=== PATIENT | male | born 1940 | race Caucasian/White ===

== ENCOUNTER 2019-07-25 09:59 | Inpatient (IN) ==
[2019-06-26 13:13] LABS: Basophils # (auto) 0.04 K/uL (0-0.2); Basophils % (auto) 0.6 %; Eosinophils # (auto) 0.18 K/uL (0-0.5); Eosinophils % (auto) 2.8 %; Hematocrit (blood only) 42.3 % (42-52); Hemoglobin 14.7 g/dL (14.0-18.0); Immature Granulocytes # (auto) 0.01 K/uL (0.00-0.02); Immature Granulocytes % (auto) 0.2 %; Lymphocytes % (auto) 26.4 %; Mean Corpuscular Hemoglobin 32.6 pg (25-34); Mean Corpuscular Hgb Conc 34.8 g/dL (32-36); Mean Corpuscular Volume 93.8 fL (80-100); Mean Platelet Volume 10.5 fL (7.4-10.4); Monocytes # (auto) 0.84 K/uL (0.11-0.59); Neutrophils # (auto) 3.67 K/uL (1.4-6.5); Platelet Count 170 K/uL (130-400); RDW Standard Deviation 44.4 fL (36.4-46.3); Red Blood Count 4.51 M/uL (4.7-6.1); White Blood Count 6.44 K/uL (4.8-10.8)
--- NOTE | 2019-06-26 13:18 | XRay Report ---
XR chest Pre-admission PA/Lat HISTORY: 79 years-old Male pat preoperative exam. COMPARISON: None available TECHNIQUE: PA and lateral views of the chest FINDINGS: Cardiomediastinal and hilar silhouettes are within normal limits. Aside plaque the thoracic aortic ar ch. No pneumothorax, pleural effusion or overt pulmonary edema. Eventration of the right hemidiaphrag m. Remote healed bilateral rib fractures. IMPRESSION: No acute process. The above report was generated using voice recognition software. It may contain grammatical, syntax o r spelling errors. Electronically signed by: Dagoberto Barron M.D. 06/26/2019 1:16 PM
[2019-06-26 13:19] LABS: BUN Creatinine Ratio 15.7 (10-20); Blood Urea Nitrogen 20 mg/dl (7-18); Calcium 8.9 mg/dl (8.5-10.1); Carbon Dioxide 25 mmol/L (21-32); Chloride 107 mmol/L (98-107); Creatinine Clr Calc Pharmacy 60.5 ml/min; Est GFR (African American) 62.9; Est GFR (Non-African American) 54.3; Glucose 117 mg/dl (70-99); Potassium 4.3 mmol/L (3.5-5.1); Sodium 139 mmol/L (136-145)
[2019-06-26 13:20] LABS: Estimated Average Glucose 151 mg/dl; Hemoglobin A1C 6.9 % (4.5-5.6)
[2019-06-26 13:22] LABS: C Reactive Protein < 0.29 mg/dl (0-0.29)
[2019-06-26 13:28] LABS: Partial Thromboplastin Time 26.5 Seconds (21.0-31.0); Prothrombin Time 10.3 Seconds (9.0-12.0)
--- NOTE | 2019-06-26 13:56 | Anesthesiology Consultation ---
Date of Service June 26, 2019 Assessment & Plan (1) Encounter for pre-operative examination: Chart Review Chart Review: Patient seen in Pre Admission Testing Consults Requested Spine surgery Patient has a history of cervical fusion and subsequent revision with Dr Royce Malone out of [place]. He states that his surgeon told him "Don't let anyone touch your spine." He has minimal radiculopathy and no apparent instability. He denies a history of lumbar surgery. I see no contraindication to spinal anesthesia and feel that given his COPD, this would be the preferred anesthetic approach. Please make contact with his spine surgeon to rule out contraindication of subarachnoid block. History Surgery Operation Date: 07/25/19 07:00 Proposed Procedures p Right Total Knee Arthroplasty - Richy Smith MD Height/Weight Height: 6 ft Weight: 105.052 kg Allergies Allergy/AdvReac Type Severity Reaction Status Date / Time No Known Allergies Allergy Verified 06/26/19 11:45 Medications Home Medications Medication Instructions Recorded Confirmed Last Taken acetaminophen-codeine 1 tab PO BID PRN 06/26/19 06/26/19 Unknown aspirin 81 mg PO QAM 06/26/19 06/26/19 Unknown atorvastatin [Lipitor] 10 mg PO HS 06/26/19 06/26/19 Unknown benazepril [Lotensin] 10 mg PO QAM 06/26/19 06/26/19 Unknown carbamazepine [Tegretol] 200 mg PO BID 06/26/19 06/26/19 Unknown chlordiazepoxide HCl 25 mg PO Q12H 06/26/19 06/26/19 Unknown dicyclomine 10 mg PO BID PRN 06/26/19 06/26/19 Unknown ferrous fumarate-vitamin C 1 tab PO DAILY PRN 06/26/19 06/26/19 Unknown fluticasone propion-salmeterol 1 inh INHALATION Q12H PRN 06/26/19 06/26/19 Unknown [Advair Diskus] fluticasone propionate [Flonase 1 spray INTRANASAL DAILY PRN 06/26/19 06/26/19 Unknown Allergy Relief] glimepiride 4 mg PO QAM 06/26/19 06/26/19 Unknown metformin 1,000 mg PO BID 06/26/19 06/26/19 Unknown metoprolol succinate [Toprol XL] 25 mg PO BID 06/26/19 06/26/19 Unknown montelukast [Singulair] 10 mg PO PM 06/26/19 06/26/19 Unknown multivitamin 1 tab PO DAILY 06/26/19 06/26/19 Unknown omega 2-pld-lys-fish oil [Fish Oil] 1 cap PO DAILY 06/26/19 06/26/19 Unknown pioglitazone [Actos] 15 mg PO QAM 06/26/19 06/26/19 Unknown ranitidine HCl 150 mg PO BID 06/26/19 06/26/19 Unknown sitagliptin [Januvia] 100 mg PO QPM 06/26/19 06/26/19 Unknown Past Medical History Medical History Anemia hx Anxiety BPH (benign prostatic hyperplasia) Cardiac murmur no problems per daughter. "an irregular heartbeat" Carotid artery disease Chronic kidney disease stage 2 Chronic obstructive pulmonary disease Degenerative cervical disc Degenerative disc disease Depression Diabetes mellitus, type 2 niddm GI bleed hx History of tooth extraction Hx of fracture possible jaw fracture with surgery. no difficulty opening mouth Hx of head injury 1976 Hyperlipidemia Hypertension Kidney stones hx Osteoarthritis PAC (premature atrial contraction) per pcp documentation PAD (peripheral artery disease) Peptic ulcer disease hx Poor historian Schatzki's ring per pcp documentation Seizure r/t head injury (1976) patient does not know when his last seizure was, states it was at least for 38 years. follows with PCP. Spinal stenosis Past Family History Family History Father Family history of diabetes mellitus Sister FHx: liver cancer Past Surgical History Surgical History Fusion of spine Full ROM H/O elbow surgery right H/O neck surgery with revision to screw in his neck H/O of nasal cauterization History of angioplasty of peripheral vessel bilateral leg History of arthroscopy of right knee History of colonoscopy History of discectomy cervical History of esophagogastroduodenoscopy (EGD) History of total knee replacement left S/P epidural steroid injection Social History Smoking Status: Former smoker tobacco type: cigarettes, cigars and smokeless tobacco Do You Dip or Chew Tobacco: No (hx) Smoking End Date: quit 50 years ago Hx Alcohol Use: Yes Alcohol type: wine alcohol intake frequency: other Alcohol Intake Frequency Comment: socially Hx Substance Use: No substance use type: does not use Physical Exam Vital Signs Last Vital Signs Temp 36.6 C 06/26/19 11:33 Pulse 85 06/26/19 11:33 Resp 20 06/26/19 11:33 BP 138/81 06/26/19 11:33 Pulse Ox 94 06/26/19 11:33 Constitutional + obese ENMT Mouth: + edentulous Thyromental Distance: > or= 3.5 Finger Breadths Mallampati Class: II Neck normal visual inspection and + limited neck extension Respiratory normal respiratory effort Auscultation: + diminished lung sounds (bilateral. air movement audible throughout) Cardiovascular Rate/Rhythm: regular rate and regular rhythm Musculoskeletal Spine: + limited cervical ROM (limited extension) Neurologic moves all extremities (mild R weakness in ulnar distribution) Psychiatric Orientation: alert Testing Laboratory Results 06/26/19 12:14 06/26/19 12:14 PT 10.3 Seconds (9.0-12.0) 06/26/19 12:14 INR 1.0 (0.9-1.1) 06/26/19 12:14 APTT 26.5 Seconds (21.0-31.0) 06/26/19 12:14 Hemoglobin A1c 6.9 % (4.5-5.6) H 06/26/19 12:14
--- NOTE | 2019-07-19 18:56 | History and Physical Report ---
DATE OF ADMISSION: 07/25/2019 CHIEF COMPLAINT: Right knee pain, discomfort, swelling. HISTORY OF PRESENT ILLNESS: The patient is a 79-year-old gentleman from [place], who presents for surgical treatment of his right knee. He comes specifically to have his right knee replaced. He has got a long history of right knee problems followed by the [facility] over in [place]. He had multiple aspirations and injections, which have become less successful over time. He has left knee replaced about 10 years ago at [place] complicated by some postoperative problems. Never had any repeat surgery. He now would like to have his right knee replaced. He has become more debilitated by his pain. His knee hurts all the time. The more he walks, the more it hurts. He has had 2 knee arthroscopies in the past. He also feels his knee is unstable and he is concerned about falling. PAST MEDICAL HISTORY: Significant for: 1. Hypertension. 2. Elevated cholesterol. 3. Heart murmur. 4. Asthma. 5. COPD. 6. Diabetes x10 years. 7. Gastroesophageal reflux disease. 8. Back pain. PAST SURGICAL HISTORY: Include: 1. Right knee scope x2. 2. Left knee replacement 10 years ago in [place]. 3. Neck surgery. 4. Back surgery. 5. Elbow surgery. ALLERGIES: None. CURRENT MEDICINES: Include: 1. Tylenol with codeine as needed for pain. 2. Aspirin 81 mg. 3. Lipitor/atorvastatin 10 mg at bedtime. 4. Benazepril 10 mg a day. 5. Buspirone 7.5 mg 3 times a day. 6. Tegretol 200 mg twice a day. 7. Librium 1 capsule 2 times a day. 8. Topical clobetasol cream twice a day. 9. Lotrisone cream topically on his feet as needed. 10. Iron sulfate 325 once a day. 11. Dicyclomine twice a day for abdominal cramping. 12. Flonase nasal spray 1 spray in each nose twice a day. 13. Advair 1 puff every 12 hours. 14. Lasix 40 mg a day p.r.n. for edema. 15. Amaryl 4 mg a day. 16. Januvia 100 mg a day. 17. Lidocaine topical cream. 18. Magnesium oxide 400 mg a day. 19. Metformin 1000 mg twice a day. 20. Metoprolol XL 50 mg tablets 1/2 tablet twice a day. 21. Singulair 10 mg a day. 22. Actos 15 mg a day. 23. Zantac 150 mg twice a day. 24. Tramadol p.r.n. for pain. SOCIAL HISTORY: Significant for a 79-year-old male. He lives in [place]. Does not smoke. He does live alone. No alcohol intake. FAMILY HISTORY: Significant for diabetes. Denies any current chest pain or shortness of breath. No known history of DVT or PE. No bleeding disorders. PHYSICAL EXAMINATION: GENERAL: Pleasant elderly male. He comes in with his daughter to clinic. HEENT: Benign. NECK: Supple. No lymphadenopathy. LUNGS: Clear to auscultation. HEART: Regular rate and rhythm. ABDOMEN: Soft, nontender, nondistended. EXTREMITIES: Grossly neurovascularly intact except as follows. Examination of the right knee reveals the patient walks independently. He has got valgus alignment to his knee. The valgus deformity is increased with weightbearing. He has got some scars around his knee, which looked well healed. He has got moderate size knee effusion. Range of motion is 5-125. No instability. No pain with hip motion. Examination of the left knee reveals well-healed incision. I do not detect any swelling. Range of motion is 5-120. No instability. X-RAYS: X-rays of the right knee reviewed. It shows advanced right knee tricompartment DJD. He has got complete loss of his lateral joint space. He has got extensive chondrocalcinosis in all 3 compartments, which looks to be multiple loose bodies. X-rays of the left knee revealed no signs of obvious problems. No signs of infection. ASSESSMENT: A 79-year-old gentleman 10 years out from left knee replacement with advanced right knee tricompartment degenerative joint disease. He may have some degree of chondrocalcinosis and synovial osteochondromatosis as well. He has had multiple knee scopes in the past. He has failed conservative treatment and would like to have his right knee replaced. PLAN: We are going to take her to the Operating Room and do a right total knee replacement. The risks and benefits of this procedure were explained to the patient including but not limited to DVT, PE, , infection, neurological injury, vascular injury, bleeding problem, pain, limited range of motion, stiffness, failure to relieve symptoms, incomplete relief of symptoms, need for further surgery in future, fracture, leg length inequality, nerve palsy and persistent pain. The patient understands and desires to proceed. Informed consent was obtained. As far as discharge plans, he is going to be discharged to his daughter's house and stay with her and have home health. He knows to hold his metformin preoperatively. We will hold his benazepril as well in the morning of surgery. We did get labs just to make sure there were no signs of infection in his other knee. Sed rate was 30 and C-reactive protein was normal.
[~2019-07-25 09:59] MED LIST: BUPIVACAINE 0.5 % 5 MG/1 ML PF 10ML VIAL ONE; BUPIVACAINE LIPOSOME/PF 266 MG, BUPIVACAINE/EPINEPHRINE 50 ML, SODIUM CHLORIDE 0.9% 30 ... INFIL SCH; CEFAZOLIN 2000MG 2,000 MG/15 ML SYR IV SCH; FAMOTIDINE 20 MG TAB PO SCH; GABAPENTIN 300 MG CAP PO SCH; LR 500ML BOLUS, THEN 15ML/HR IV SCH; LR 60ML/HR IV SCH; METOCLOPRAMIDE HCL 10 MG TABLET PO SCH; TRANEXAMIC ACID 1,000 MG **IV Intra-op IV SCH
[2019-07-25] MEDS: ACETAMINOPHEN 500 MG TAB PO SCH ×3 (11:07→21:19)
[2019-07-25] MEDS ORDERED: MIDAZOLAM HCL 1 MG/ML 2ML VIAL ONE (11:53)
[2019-07-25] MEDS ORDERED: fentaNYL citrate 100 MCG/2 ML VIAL ONE (11:53)
[2019-07-25] MEDS ORDERED: ePHEDrine sulfate 50 MG/ML AMP IV PRN (11:54)
[2019-07-25] MEDS ORDERED: ONDANSETRON INJ 2 MG/ML 2 ML VIAL IV PRN ×2 (11:54→17:40)
[2019-07-25] MEDS ORDERED: fentaNYL citrate 100 MCG/2 ML VIAL IV PRN (11:54)
[2019-07-25] MEDS ORDERED: ATROPINE SULFATE 0.1 MG/ML 10ML SYR IV PRN (11:54)
[2019-07-25] MEDS ORDERED: BUPIVACAINE LIPOSOME 1.3% 266 MG/20 ML VIAL ONE (12:58)
[2019-07-25] MEDS ORDERED: BACITRACIN INJ 50,000 UNIT VIAL ONE (12:58)
[2019-07-25] MEDS ORDERED: SODIUM CHLORIDE 0.9% PF 50 ML VIAL ONE (12:58)
[2019-07-25] MEDS ORDERED: EPINEPHrine INJ 1 MG/ML AMP ONE (12:59)
[2019-07-25] MEDS ORDERED: BUPIVACAINE 0.25% 30 ML VIAL ONE (12:59)
[2019-07-25] MEDS ORDERED: PROPOFOL IV EMULSION 10 MG/ML 20 ML VIAL IV ONE (13:01)
[2019-07-25] MEDS ORDERED: VANCOMYCIN HCL 1000MG/20ML VIAL ONE (13:26)
[2019-07-25] MEDS ORDERED: PHENYLEPHRINE 100MCG/ML 5ML SYR ONE (14:59)
--- NOTE | 2019-07-25 15:08 | Post Operative Brief Note ---
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 Right Knee Bone and Tissue Drains Lloyd Catheter (A 16 Kyr[place]z lloyd catheter was inserted by DENAE Dougherty, without difficulty, clear yellow urine obtained, output to be monitored by Anesthesia.) Anesthesia Type Spinal MAC Complications none Disposition Accompanied Patient To Recovery: No Disposition: Recovery Room
--- NOTE | 2019-07-25 16:20 | XRay Report ---
XR knee RT 2V routine CLINICAL HISTORY: Postop examination. Degenerative arthritis. COMPARISON: 06/19/2019 DISCUSSION: There are postsurgical changes of a total right knee arthroplasty and patellar resurfacin g. The femoral and tibial components appear well seated. Overlying skin whit are evident. There is air within the soft tissues consistent with recent surgery. IMPRESSION: Postsurgical changes of a total right knee arthroplasty. Electronically signed by: Sam Roper M.D. 07/25/2019 4:18 PM
--- NOTE | 2019-07-25 17:05 | Anesthesiology Progress Note ---
Date of Service July 25, 2019 Anesthesia Post Procedure Vital Signs Vital Signs: Temp Pulse Pulse Resp BP Pulse Ox 07/25/19 16:55 68 16 120/69 97 07/25/19 16:45 63 19 108/54 L 97 07/25/19 16:35 63 24 109/60 95 07/25/19 16:25 66 23 104/58 L 95 07/25/19 16:15 62 17 110/61 97 07/25/19 16:05 63 22 102/60 97 07/25/19 15:55 67 24 102/67 97 07/25/19 15:45 63 21 109/58 L 97 07/25/19 15:35 66 21 106/64 97 07/25/19 15:25 70 20 100/55 L 96 07/25/19 15:17 36.8 C 74 19 98/60 L 97 07/25/19 10:49 36.4 C L 54 L 18 165/80 H 98 Pain Intensity Generalized: Pain Intensity: 5 Transfer of Care Handoff Completed per policy Notes Mental Status: alert / awake / arousable and participated in evaluation Patient Amnestic to Procedure: Yes Nausea / Vomiting: adequately controlled Pain: adequately controlled Airway Patency, RR, SpO2: stable & adequate BP & HR: stable & adequate Hydration State: stable & adequate Neuraxial Anesthesia: was administered and sensory block is resolving Anesthetic Complications: no major complications apparent
--- NOTE | 2019-07-25 17:29 | Operative Report ---
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 He underwent a previous left knee replacement 10 years ago in [place]. There is done okay but not great. He is been bothered by persistent and progressive right knee pain for the past several years. Is been through extensive conservative treatment. He now presents specifically for surgical treatment. H e is gotten tricompartment DJD. Got chondrocalcinosis. He failed conservative care. Description of Procedure Operative implants: 1. Biomet Vanguard size 70 right posterior base femoral component 2. Biomet size 79 tibial tray. 3. 10 mm posterior stabilized polyethylene insert. 4. 31 x 8 all poly-patella Patient was taken to the operating room identified and placed on the operating table in supine position. All contact areas were meticulously padded. A spinal anesthetic and abductor canal block had provided in the holding area. A Guerrero catheter was placed in sterile fashion. A right thigh tourniquet was then placed. The right leg was then prepped and draped in usual sterile fashion. Right leg was elevated and exsanguinated view with use of an Esmarch and tourniquet was placed at 300 mmHg. An anterior approach to the right knee was then performed to a longitudinal incision centered over the patella. Sharp dissection was cut through subcutaneous tissue down the level of the extensor mechanism. A medial parapatellar patellar arthrotomy was then performed. Some subperiosteal dissection was carried out medially. The fat pad was dissected from beneath patella tendon. The lateral patellofemoral ligament was released. The patella was subluxated laterally and the knee was flexed. The osteophytes were taken off the distal femur. The ACL and PCL were then released from the distal femur and the tibia subluxated anteriorly. The external tibial alignment jig was then placed in the anterior face the tibia and adjusted 16 mm medially. Possible tibial cut was made to remove about 3 to 4 mm of bone from the medial side. The tibia was then sized to a size 79. Attention down the femur. The distal femur was entered with a sharp drill. The intramedullary canal was suctioned. A right 5 degree valgus cutting guide was placed in the distal femoral cutting block was pinned in place. The distal femoral cut was made to take an additional 3 mm of bone off the distal femur. The knee was brought out into full extension. I then released the IT band and some of the posterior lateral capsule in order to equalize the extension gap. The femur was then sized to a size 70. The AP cutting block was pinned parallel to the epicondylar axis which was 6 degrees of external rotation. Anterior cut, anterior chamfer, posterior cut, posterior chamfer cuts were made. Box cutting guide was placed and adjusted slightly lateral and the box cut was made. The knee was flexed. The remnants of the medial lateral menisci were excised. The osteophytes were taken off the posterior aspect of the femur. A trial femoral component was placed. The tibial tray was pinned in maximum external rotation and the drill and stem punch were used to create a defect in the proximal tip for the tibial tray. The knee was then trialed the 10 mm insert fit most appropriately. Attention then turned to the patella. The patella was cleaned of all soft tissues. Patella thickness measured 23 mm in thickness was cut down to 14. Was sized to a size 31 patella. Lug holes were drilled for 31 patella. The lateral osteophyte was removed. The patella button was placed. He was taken through range of motion patella tracked nicely with no thumbs test. Attention turned toward placing the permanent components. The knee was irrigated with copious amounts of pulsatile lavage solution. A bone plug was placed in the distal femur to limit blood loss put a double batch Palacos G cement was mixed. I did add an additional gram of vancomycin due to his history of multiple surgeries in the past. A Biomet Vanguard size 70 right posterior bifemoral component, size 79 tibial tray, 10 mm posterior stabilized polyethylene insert, and a 31 x 8 all poly-patella was then cemented into place. New was brought out into full extension until cement hardened. Final cement check was then performed. The pericapsular tissues were then injected with 100 cc of a combination of 20 cc of Exparel, 30 cc normal saline, 50 cc of quarter percent Marcaine with epinephrine. Patient did receive 1 g of tranexamic acid. The test was then let down for final tourniquet time of 64 minutes. Hemostasis should use electrocautery. The extensor mechanism then closed with a combination 1 PDS suture #1 Vicryl suture in a [id number] fashion. The ex tensor mechanism was checked and found to be intact. The subcutaneous tissue then closed with 2 Dexon suture in a buried fashion the skin was closed skin whit. Leg was then cleaned dried and sterile dressing with Xeroform 4 x 4 sterile cast padding and Jose bandage were applied. Patient was then transferred to the recovery room in stable condition. Patient tolerated procedure well no comp case but on the sponge counts are correct at the end the operation Addendum: This patient had an abundant amount of chalky material which appeared to be gout. I debrided the knee is not of much of this as possible. I also did a complete synovectomy to remove all extraneous gouty type material. I attest to the content of the Intraoperative Record and any orders documented therein. Any exceptions are noted below.
[2019-07-25] MEDS ORDERED: DEXTROSE 50% 50 ML SYRINGE IV PRN (17:40)
[2019-07-25] MEDS ORDERED: ALUMINUM/MAGNESIUM SUSP 30 ML UDC PO PRN (17:40)
[2019-07-25] MEDS ORDERED: GLUCAGON FOR INJ 1 MG VIAL SQ PRN (17:40)
[2019-07-25] MEDS ORDERED: MAGNESIUM HYDROXIDE SUSP 30 ML UDC PO PRN (17:40)
[2019-07-25] MEDS ORDERED: FLUTICASONE/SALMETEROL 250/50 (ADVAIR) 14 PUFF/1 INHALER INH PRN (17:40)
[2019-07-25] MEDS ORDERED: NALOXONE HCL 0.4 MG/1 ML VIAL/CARP IV PRN (17:40)
[2019-07-25] MEDS ORDERED: METOCLOPRAMIDE HCL INJ 5 MG/ML 2 ML VIAL IV PRN (17:40)
[2019-07-25] MEDS ORDERED: HYDROmorphone INJ 0.5 MG/0.5 ML SYR IV PRN (17:40)
[2019-07-25] MEDS ORDERED: FLUTICASONE PROPIONATE NA SPR 16 GM BTL NAE PRN (17:40)
[2019-07-25] MEDS ORDERED: bisacodyL 10 MG SUPP PR PRN (17:40)
[2019-07-25] MEDS ORDERED: CARBOHYDRATES FOR HYPOGLYCEMIA PO PRN (17:40)
[2019-07-25] MEDS ORDERED: PHARMACY GLYCEMIC MGMT CONSULT STA (17:40)
[2019-07-25] MEDS ORDERED: DICYCLOMINE HCL 10 MG CAP PO PRN (17:40)
[2019-07-25] MEDS ORDERED: GLUCOSE 10 TABS/TUBE PO PRN (17:40)
[2019-07-25] MEDS ORDERED: GLUCOSE 40% GEL 15 GM TUBE PO PRN (17:40)
[2019-07-25] MEDS ORDERED: PHARMACY GLYCEMIC MGMT CONSULT PRN (18:25)
[2019-07-25] MEDS: FERROUS GLUCONATE 324 MG TAB PO SCH (19:08)
[2019-07-25] MEDS: ASCORBIC ACID 500 MG TAB PO SCH (19:08)
[2019-07-25] MEDS: KETOROLAC TROMETHAMINE 15 MG/ML VIAL IV SCH (19:08)
[2019-07-25] MEDS: INSULIN ASPART 100 UNITS/ML 3 ML PEN SC SCH ×2 (19:15→21:53)
[2019-07-25] MEDS: SODIUM CHLORIDE 0.9% 1000ML 1,000 ML IV SCH (19:47)
[2019-07-25] MEDS: TRAMADOL HCL 50 MG TABLET PO PRN (19:58)
[2019-07-25] MEDS ORDERED: SITAGLIPTIN PHOSPHATE 100 MG TAB PO SCH (21:00)
[2019-07-25] MEDS ORDERED: TRANEXAMIC ACID 1,000 MG in 0.9 % SODIUM CHLORIDE 100 ML IV SCH (21:11)
[2019-07-25] MEDS ORDERED: INSULIN GLARGINE SOLOSTAR 100 UNITS/ML 3 ML PEN SC ONE (21:15)
[2019-07-25] MEDS: ATORVASTATIN 10 MG TAB PO SCH (21:17)
[2019-07-25] MEDS: DOCUSATE SODIUM 100 MG CAP PO SCH (21:17)
[2019-07-25] MEDS: ASPIRIN 81 MG ECTAB PO SCH (21:17)
[2019-07-25] MEDS: SENNA 8.6 MG TAB PO SCH (21:17)
[2019-07-25] MEDS: carBAMazepine 200 MG TABLET PO SCH (21:18)
[2019-07-25] MEDS: METOPROLOL SUCC 25MG EXT REL TAB PO SCH (21:18)
[2019-07-25] MEDS: MONTELUKAST SODIUM 10 MG TABLET PO SCH (21:18)
[2019-07-25] MEDS: chlordiazePOXIDE HCl 25 MG CAP PO SCH (21:42)
[2019-07-25] MEDS: CEFAZOLIN 2000MG 2,000 MG/15 ML SYR IV SCH (22:03)
[2019-07-26] MEDS: KETOROLAC TROMETHAMINE 15 MG/ML VIAL IV SCH ×2 (00:35→05:47)
[2019-07-26] MEDS ORDERED: INSULIN ASPART 100 UNITS/ML 3 ML PEN SC ONE (02:00)
[2019-07-26] MEDS: CEFAZOLIN 2000MG 2,000 MG/15 ML SYR IV SCH (05:47)
[2019-07-26] MEDS: ACETAMINOPHEN 500 MG TAB PO SCH ×3 (05:47→21:15)
[2019-07-26] MEDS: SODIUM CHLORIDE 0.9% 1000ML 1,000 ML IV SCH (05:54)
[2019-07-26 05:58] LABS: Hematocrit (blood only) 34.3 % (42-52); Hemoglobin 11.5 g/dL (14.0-18.0); Mean Corpuscular Hemoglobin 31.6 pg (25-34); Mean Corpuscular Hgb Conc 33.5 g/dL (32-36); Mean Corpuscular Volume 94.2 fL (80-100); Mean Platelet Volume 10.3 fL (7.4-10.4); Platelet Count 134 K/uL (130-400); RDW Coefficient of Variation 12.9 % (11.5-14.5); RDW Standard Deviation 44.3 fL (36.4-46.3); Red Blood Count 3.64 M/uL (4.7-6.1); White Blood Count 7.75 K/uL (4.8-10.8)
[2019-07-26 06:25] LABS: BUN Creatinine Ratio 10.9 (10-20); Calcium 7.7 mg/dl (8.5-10.1); Creatinine Clr Calc Pharmacy 47.3 ml/min; Est GFR (African American) 45.7; Est GFR (Non-African American) 39.5
--- NOTE | 2019-07-26 07:30 | Progress Note ---
DATE: 07/26/2019 SUBJECTIVE: A 79-year-old gentleman postop day 1 from right knee replacement. He is doing pretty well. Denies any chest pain or shortness of breath. Not feeling dizzy or lightheaded. OBJECTIVE: VITAL SIGNS: Temperature 36.5. Vital signs stable. GENERAL: Shows a pleasant elderly male. He is sitting up on bed, doing heel prop and looks pretty comfortable. EXTREMITIES: Examination of the right leg reveals the leg to be well aligned. Dressing is clean, dry and intact. No significant drainage. He can dorsiflex and plantarflex his foot appropriately. He is neurologically intact. LABORATORY DATA: Hemoglobin is 11.5. Hematocrit 34.3. Electrolytes are fairly stable. Creatinine is slightly elevated at 1.64. ASSESSMENT: A 79-year-old gentleman postoperative day 1 from right knee replacement, doing pretty well. His pain has been controlled. He is neurologically intact. Creatinine is a little elevated and we will hold on any further Toradol. PLAN: 1. DVT prophylaxis including thigh-high TEDs, SCDs, and aspirin twice a day. 2. PT/OT. Weight bear as tolerated. Right total knee protocol. 3. Pain control, doing well with current pain regimen. 4. Elevated creatinine. We are going to stop all Toradol and limit NSAIDs other than aspirin. We will recheck his creatinine in the morning. 5. Disposition: He is planning to be discharged to his daughter's house with some home health once medically stable and recovered.
--- NOTE | 2019-07-26 08:48 | Pharmacy Report ---
Glycemic Control Consultation - Date of Service July 26, 2019 - Scope Scope: Glycemic Pharmacist consulted by Dr Smith on 07/25/19 for glycemic control and to write orders per [facility] inpatient glycemic control protocol - Objective Weight: 105.233 kg Accuchecks BSG (last 24hrs): 07/25/19 07/25/19 07/25/19 10:27 12:56 15:25 Glucose POC Glucose 122 H 121 H 107 H 07/25/19 07/25/19 07/25/19 17:35 20:24 21:45 Glucose POC Glucose 125 H 173 H 124 H 07/26/19 07/26/19 07/26/19 02:00 05:25 08:08 Glucose 113 H POC Glucose 85 123 H Laboratory Data (last 24hrs): 07/26/19 05:25 Potassium 4.0 Carbon Dioxide 25 Anion Gap 7.0 Creatinine 1.64 H Est Cr Clr Drug Dosing 47.3 HbA1c: Hemoglobin A1c 6.9 % (4.5-5.6) H 06/26/19 12:14 - Recent Pertinent Medications Outpatient Anti-diabetic Regimen: * Metformin, Amaryl, Januvia, Actos Risk Factors for Insulin Resistance: * Recent Surgery * Diet * multiple oral agents as an outpatient - Assessment & Plan Assessment & Plan: ASSESSMENT: * 79yo T2DM male with well controlled diabetes as an outpatient per recent A1c * Pt is maintained on oral antidiabetic agents as an outpatient * Oral agents are not recommended for inpatient use d/t drug interactions, changing PO intake, and difficulty titrating for acute hyper/hypoglycemia. ADA recommends re-initiating outpatient oral agents 1-2 days prior to discharge if/when appropriate if they were held on admission. * Will hold oral agents for admission and utilize SQ basal bolus insulin regimen which is the recommended regimen for inpatient glycemic control. * Will initiate weight based insulin dosing for insulin tray patient and titrate based on BSG trends. PLAN FOR INPATIENT GLYCEMIC CONTROL: * Holding outpatient oral diabetes medications * Basal insulin * Hold for now based on AM fasting BSG of 113 mg/dl, pt with adequate HS to AM BSG fall (173 --> 85 --> 113) * Bolus insulin * NovoLog per scale ACHS or Q6hrs while NPO * Goal Range: Low 110 mg/dL - High 140 mg/dL * Correction Factor: 25 mg/dL/unit * Nutritional / Prandial insulin per carb ratio of 1 unit per 8 grams CHO consumed * Please note that the plan above was derived based on current level of insulin resistance and hospital stress. These recommendations are appropriate for inpatient admission only. Plan of care upon discharge will need to be reassessed to avoid potential outpatient hypo/hyperglycemia. Thank you.
[2019-07-26] MEDS: carBAMazepine 200 MG TABLET PO SCH ×2 (08:50→21:14)
[2019-07-26] MEDS: METOPROLOL SUCC 25MG EXT REL TAB PO SCH ×2 (08:50→21:22)
[2019-07-26] MEDS: MULTIVITAMIN TAB PO SCH (08:51)
[2019-07-26] MEDS: ASCORBIC ACID 500 MG TAB PO SCH ×2 (08:51→17:04)
[2019-07-26] MEDS: ENALAPRIL MALEATE 10 MG TAB PO SCH (08:51)
[2019-07-26] MEDS: DOCUSATE SODIUM 100 MG CAP PO SCH ×2 (08:51→21:15)
[2019-07-26] MEDS: FERROUS GLUCONATE 324 MG TAB PO SCH ×2 (08:51→17:04)
[2019-07-26] MEDS: ASPIRIN 81 MG ECTAB PO SCH ×2 (08:51→21:14)
[2019-07-26] MEDS: OMEGA-3 (PURIFIED FISH OIL) 1 GM CAP PO SCH (08:51)
[2019-07-26] MEDS: chlordiazePOXIDE HCl 25 MG CAP PO SCH ×2 (08:55→21:22)
[2019-07-26] MEDS ORDERED: GLIMEPIRIDE 2 MG TAB PO SCH (09:00)
[2019-07-26] MEDS ORDERED: PNEUMOCOCCAL POLYSACCHARIDES 25 MCG/0.5 ML VIAL/SYR IM ONE (09:00)
[2019-07-26] MEDS ORDERED: INFLUENZA VIRUS QUAD VACCINE 0.5 ML SYR IM ONE (09:00)
[2019-07-26] MEDS ORDERED: MULTIVITAMIN TAB PO SCH (09:00)
[2019-07-26] MEDS ORDERED: PNEUMOCOCCAL ADMINISTRATION CHARGE ONE (09:00)
[2019-07-26] MEDS ORDERED: PIOGLITAZONE HCL 15 MG TAB PO SCH (09:00)
[2019-07-26] MEDS ORDERED: INFLUENZA ADMINISTRATION CHARGE ONE (09:00)
[2019-07-26] MEDS: INSULIN ASPART 100 UNITS/ML 3 ML PEN SC SCH ×4 (10:06→21:05)
[2019-07-26] MEDS: TRAMADOL HCL 50 MG TABLET PO PRN ×2 (12:23→18:52)
[2019-07-26] MEDS: INSULIN GLARGINE SOLOSTAR 100 UNITS/ML 3 ML PEN SC SCH (13:38)
[2019-07-26] MEDS: TAMSULOSIN HCL 0.4 MG CAP PO PRN (19:04)
[2019-07-26] MEDS: SENNA 8.6 MG TAB PO SCH (21:13)
[2019-07-26] MEDS: MONTELUKAST SODIUM 10 MG TABLET PO SCH (21:13)
[2019-07-26] MEDS: ATORVASTATIN 10 MG TAB PO SCH (21:14)
[2019-07-27] MEDS: TRAMADOL HCL 50 MG TABLET PO PRN ×2 (01:13→07:28)
[2019-07-27] MEDS: ACETAMINOPHEN 500 MG TAB PO SCH ×2 (05:19→13:04)
[2019-07-27] MEDS: TAMSULOSIN HCL 0.4 MG CAP PO PRN (05:19)
[2019-07-27 05:44] LABS: BUN Creatinine Ratio 15.3 (10-20); Creatinine Clr Calc Pharmacy 56.2 ml/min; Est GFR (African American) 56.4; Est GFR (Non-African American) 48.6; Potassium 4.4 mmol/L (3.5-5.1)
--- NOTE | 2019-07-27 08:10 | Progress Note ---
DATE: 07/27/2019 SUBJECTIVE: A 79-year-old gentleman postop day 2 from a right knee replacement. His knee is sore but pain is reasonably well controlled. He had a little trouble voiding yesterday and required a couple straight caths but is doing better this morning. He has voided several times on his own. No chest pain or shortness of breath. Not feeling dizzy or lightheaded. OBJECTIVE: VITAL SIGNS: Temperature 36.7. Vital signs stable. GENERAL: Physical examination shows a pleasant elderly male. He is sitting up at his bedside cleaning up this morning. EXTREMITIES: Examination of the right knee reveals the dressing to be clean, dry and intact. Some moderate leg swelling. He can dorsiflex and plantarflex his foot appropriately. He is neurologically intact. LABORATORIES: Creatinine improved at 1.38. ASSESSMENT: A 79-year-old gentleman postop day 2 from right knee replacement, doing reasonably well. Had a little trouble voiding initially but doing better now. His creatinine is improved. His pain is reasonably well controlled. He is really wanting to stay until tomorrow. PLAN: 1. DVT prophylaxis including thigh-high TEDs, SCDs, and aspirin twice a day. 2. PT/OT. Weight bear as tolerated. Right total knee protocol. 3. Pain control, doing okay with current pain regimen. 4. Disposition: We will continue to follow him in the hospital today and make sure he is voiding okay. Hopeful discharge tomorrow with home health and he is going to stay at his daughter's house.
[2019-07-27] MEDS: DOCUSATE SODIUM 100 MG CAP PO SCH ×2 (08:26→20:34)
[2019-07-27] MEDS: MULTIVITAMIN TAB PO SCH (08:26)
[2019-07-27] MEDS: METOPROLOL SUCC 25MG EXT REL TAB PO SCH ×2 (08:26→20:35)
[2019-07-27] MEDS: ENALAPRIL MALEATE 10 MG TAB PO SCH (08:26)
[2019-07-27] MEDS: OMEGA-3 (PURIFIED FISH OIL) 1 GM CAP PO SCH (08:26)
[2019-07-27] MEDS: FERROUS GLUCONATE 324 MG TAB PO SCH ×2 (08:27→17:47)
[2019-07-27] MEDS: ASPIRIN 81 MG ECTAB PO SCH ×2 (08:27→20:34)
[2019-07-27] MEDS: INSULIN GLARGINE SOLOSTAR 100 UNITS/ML 3 ML PEN SC SCH (08:27)
[2019-07-27] MEDS: carBAMazepine 200 MG TABLET PO SCH ×2 (08:27→20:35)
[2019-07-27] MEDS: ASCORBIC ACID 500 MG TAB PO SCH ×2 (08:27→17:47)
[2019-07-27] MEDS: INSULIN ASPART 100 UNITS/ML 3 ML PEN SC SCH ×4 (08:28→20:41)
[2019-07-27] MEDS: chlordiazePOXIDE HCl 25 MG CAP PO SCH ×2 (08:33→20:41)
--- NOTE | 2019-07-27 10:30 | Pharmacy Report ---
Pharmacy Glycemic Short Note 2 - Date of Service July 27, 2019 - Glycemic Short BSG Results (Last 24 hours): 07/26/19 07/26/19 07/26/19 12:01 17:02 20:58 Glucose POC Glucose 191 H 113 H 176 H 07/27/19 07/27/19 04:46 08:11 Glucose 108 H POC Glucose 170 H OUTPATIENT ANTIDIABETIC REGIMEN: * Metformin, Amaryl, Januvia, Actos ASSESSMENT: * 79yo T2DM male with adequate outpatient control on multiple oral agents. A1c in goal range at 6.9% * Oral agents on hold for admission post-operatively. * Initiated weight based Sq basal bolus insulin regimen * Pt has been receiving ~24 units of insulin per day * 10 units of basal insulin * 14 units of bolus insulin * BSGs ranging 85-191mg/dl * Goal is to maintain BSGs <200 mg/dl (ideally <150 mg/dl) to prevent post op infectious complications * No changes needed at this time PLAN FOR INPATIENT GLYCEMIC CONTROL: * Hold outpatient oral diabetes medications * Basal insulin * Lantus 10 units SQ daily * Bolus insulin * NovoLog per scale ACHS or Q6hrs while NPO * Goal Range: Low 110 mg/dL - High 140 mg/dL * Correction Factor: 25 mg/dL/unit * Nutritional / Prandial insulin per carb ratio of 1 unit per 8 grams CHO consumed PLAN FOR DISCHARGE: * Resume outpatient oral agents
[2019-07-27 18:47] LABS: Appearance Urine Cloudy (Clear); Bacteria Urine Automated Negative (Negative); Bilirubin Urine Negative (Negative); Blood Urine 3+ (Negative); Color Urine Yellow; Glucose Urine UA Trace (Negative); Ketones Urine Trace (Negative); Leukocyte Esterase Urine Trace (Negative); Nitrite Urine Negative (Negative); Protein Urine 1+ (Negative); Specific Gravity Urine 1.026 (1.000-1.030); Urobilinogen Urine Negative (Negative)
[2019-07-27 19:03] LABS: Amorphous Sediment Urine Present (None Prsent)
[2019-07-27] MEDS: ATORVASTATIN 10 MG TAB PO SCH (20:34)
[2019-07-27] MEDS: MONTELUKAST SODIUM 10 MG TABLET PO SCH (20:35)
[2019-07-27] MEDS: SENNA 8.6 MG TAB PO SCH (20:35)
[2019-07-27] MEDS: ACETAMINOPHEN W/CODEINE #3 1 TAB PO PRN (21:53)
--- NOTE | 2019-07-28 07:40 | Progress Note ---
DATE: 07/28/2019 SUBJECTIVE: A 79-year-old gentleman postop day 3 from right total knee replacement. He had a bit of confusion yesterday. He seems much better this morning. It is not anything I witnessed. He felt like the rabago were coming in on him as per his report. He has got some moderate knee pain but nothing too unexpected. No chest pain or shortness of breath. Denies any dizziness. OBJECTIVE: VITAL SIGNS: Temperature 36.9. Vital signs stable. GENERAL: Shows a pleasant elderly male. He is awake, alert and appropriate this morning. EXTREMITIES: Examination of the right knee reveals some moderate swelling. Calf is soft and supple. He can dorsiflex and plantarflex his foot appropriately. He is neurologically intact. ASSESSMENT: A 79-year-old gentleman postoperative day 3 from right knee replacement, doing okay. Had some confusion yesterday, likely related to owning and pain medicines. We did send the urine off, which was essentially unremarkable as far as infection. He had blood in it related to his Guerrero catheter. Seems to be back to baseline this morning. He has decided that he wants to go to rehabilitation for a period of time. PLAN: 1. DVT prophylaxis including thigh-high TEDs, SCDs, and aspirin twice a day. 2. PT/OT. Weight bear as tolerated. Right total knee protocol. 3. Pain control. We will continue current pain regimen. We are going to try and limit narcotics as much as possible to limit confusion. 4. Disposition: He has now decided that he wants to go to rehab. We will have social problems specialist work on that.
--- NOTE | 2019-07-28 07:52 | Anesthesiology Progress Note ---
Date of Service July 28, 2019 Anesthesia Post Procedure Vital Signs Vital Signs: Temp Pulse Resp BP Pulse Ox 07/28/19 07:06 36.9 C 78 18 123/76 94 07/27/19 23:32 37.3 C 78 16 116/67 96 07/27/19 15:15 36.7 C 62 20 118/69 96 Notes Mental Status: alert / awake / arousable and participated in evaluation Nausea / Vomiting: adequately controlled Pain: adequately controlled Airway Patency, RR, SpO2: stable & adequate BP & HR: stable & adequate Hydration State: stable & adequate Neuraxial Anesthesia: sensory block resolved
[2019-07-28] MEDS: FERROUS GLUCONATE 324 MG TAB PO SCH ×2 (08:29→17:01)
[2019-07-28] MEDS: DOCUSATE SODIUM 100 MG CAP PO SCH ×2 (08:30→21:04)
[2019-07-28] MEDS: ASPIRIN 81 MG ECTAB PO SCH ×2 (08:30→21:03)
[2019-07-28] MEDS: OMEGA-3 (PURIFIED FISH OIL) 1 GM CAP PO SCH (08:30)
[2019-07-28] MEDS: MULTIVITAMIN TAB PO SCH (08:30)
[2019-07-28] MEDS: METOPROLOL SUCC 25MG EXT REL TAB PO SCH ×2 (08:31→21:06)
[2019-07-28] MEDS: ENALAPRIL MALEATE 10 MG TAB PO SCH (08:31)
[2019-07-28] MEDS: carBAMazepine 200 MG TABLET PO SCH ×2 (08:31→21:02)
[2019-07-28] MEDS: ACETAMINOPHEN W/CODEINE #3 1 TAB PO PRN ×2 (08:36→16:58)
[2019-07-28] MEDS: chlordiazePOXIDE HCl 25 MG CAP PO SCH ×2 (08:36→21:03)
[2019-07-28] MEDS: INSULIN GLARGINE SOLOSTAR 100 UNITS/ML 3 ML PEN SC SCH (08:40)
[2019-07-28] MEDS: INSULIN ASPART 100 UNITS/ML 3 ML PEN SC SCH ×4 (08:41→21:06)
[2019-07-28] MEDS: ASCORBIC ACID 500 MG TAB PO SCH ×2 (13:13→17:01)
--- NOTE | 2019-07-28 14:40 | Pharmacy Report ---
Pharmacy Glycemic Short Note 2 - Date of Service July 28, 2019 - Glycemic Short BSG Results (Last 24 hours): 07/27/19 07/27/19 07/28/19 17:14 20:25 07:59 POC Glucose 148 H 172 H 123 H 07/28/19 12:11 POC Glucose 189 H OUTPATIENT ANTIDIABETIC REGIMEN: * Metformin, Amaryl, Januvia, Actos ASSESSMENT: 07/28 * Yayo received 10 units of basal and 23 units of bolus insulin yesterday * Fasting BSG remains well controlled but postprandial BSGs above ideal goal of 150 mg/dL * Plan for rehab on discharge, awaiting acceptance based on insurance coverage 07/27 * 79yo T2DM male with adequate outpatient control on multiple oral agents. A1c in goal range at 6.9% * Oral agents on hold for admission post-operatively. * Initiated weight based Sq basal bolus insulin regimen * Pt has been receiving ~24 units of insulin per day * 10 units of basal insulin * 14 units of bolus insulin * BSGs ranging 85-191mg/dl * Goal is to maintain BSGs <200 mg/dl (ideally <150 mg/dl) to prevent post op infectious complications * No changes needed at this time PLAN FOR INPATIENT GLYCEMIC CONTROL: * Continue to hold outpatient oral diabetes medications * Basal insulin - no change * Lantus 10 units SQ daily * Bolus insulin - tighten CF/CR * NovoLog per scale ACHS or Q6hrs while NPO * Goal Range: Low 110 mg/dL - High 140 mg/dL * Correction Factor: 20 mg/dL/unit * Nutritional / Prandial insulin per carb ratio of 1 unit per 7 grams CHO consumed PLAN FOR DISCHARGE: * Resume outpatient oral agents as A1c well controlled at 6.9%
[2019-07-28] MEDS: KETOROLAC TROMETHAMINE 15 MG/ML VIAL IV SCH ×3 (18:27→23:45)
[2019-07-28] MEDS: MONTELUKAST SODIUM 10 MG TABLET PO SCH (21:02)
[2019-07-28] MEDS: SENNA 8.6 MG TAB PO SCH (21:03)
[2019-07-28] MEDS: ATORVASTATIN 10 MG TAB PO SCH (21:03)
[2019-07-29] MEDS: KETOROLAC TROMETHAMINE 15 MG/ML VIAL IV SCH ×3 (05:32→17:33)
[2019-07-29] MEDS: carBAMazepine 200 MG TABLET PO SCH (08:22)
[2019-07-29] MEDS: MULTIVITAMIN TAB PO SCH (08:22)
[2019-07-29] MEDS: ASPIRIN 81 MG ECTAB PO SCH (08:22)
[2019-07-29] MEDS: FERROUS GLUCONATE 324 MG TAB PO SCH ×2 (08:22→17:29)
[2019-07-29] MEDS: ENALAPRIL MALEATE 10 MG TAB PO SCH (08:22)
[2019-07-29] MEDS: OMEGA-3 (PURIFIED FISH OIL) 1 GM CAP PO SCH (08:22)
[2019-07-29] MEDS: ASCORBIC ACID 500 MG TAB PO SCH ×2 (08:22→17:29)
[2019-07-29] MEDS: METOPROLOL SUCC 25MG EXT REL TAB PO SCH (08:23)
[2019-07-29] MEDS: DOCUSATE SODIUM 100 MG CAP PO SCH (08:25)
[2019-07-29] MEDS: chlordiazePOXIDE HCl 25 MG CAP PO SCH (08:25)
[2019-07-29] MEDS: INSULIN ASPART 100 UNITS/ML 3 ML PEN SC SCH ×2 (08:28→12:53)
[2019-07-29] MEDS: METFORMIN HCL 500 MG TAB PO SCH ×2 (09:28→17:29)
--- NOTE | 2019-07-29 11:26 | Progress Note ---
DATE: 07/29/2019 SUBJECTIVE: A 79-year-old gentleman postop day 4 from a right knee replacement. He is doing pretty well this morning. His pain is much better controlled since we put on a little bit of Toradol. No chest pain or shortness of breath. Not feeling dizzy or lightheaded. No further episodes of confusion. OBJECTIVE: VITAL SIGNS: Temperature 36.6. Vital signs stable. GENERAL: This is a pleasant elderly male. He is awake, alert and appropriate. EXTREMITIES: Examination of the right leg reveals some moderate swelling. He has got just a trace bit of drainage in the front of his dressing. His calf is soft and supple. He can dorsiflex and plantarflex his foot appropriately. ASSESSMENT: A 79-year-old gentleman postop day 4 from a total knee replacement, doing better. Pain seems to be better controlled. No further episodes of confusion. PLAN: 1. DVT prophylaxis including thigh-high TEDs, SCDs, and aspirin twice a day. 2. PT/OT. He can weightbear as tolerated. Right total knee protocol. 3. Pain control, doing okay with current pain regimen. 4. Disposition: We are just waiting for approval to go to a long-term facility. He decided he was not able to go to his daughter's house and will need more assistance.
--- NOTE | 2019-07-29 14:53 | Pharmacy Report ---
Pharmacy Glycemic Short Note 2 - Date of Service July 29, 2019 - Glycemic Short BSG Results (Last 24 hours): 07/28/19 07/28/19 07/29/19 17:17 20:54 07:59 POC Glucose 162 H 142 H 122 H 07/29/19 12:07 POC Glucose 173 H OUTPATIENT ANTIDIABETIC REGIMEN: * Metformin, Amaryl, Januvia, Actos ASSESSMENT: 07/29 * Patient received 10 units of basal and 20 units of bolus insulin yesterday. * Fasting BSG once again is well controlled but post-prandial BSGs were slightly elevated yesterday evening and today. * Lantus dose this AM was put on hold to resume home oral meds today. * Metformin home dose of 1000 mg BID with meals was resumed today AM. * Home dose of Januvia 100 mg QPM was also ordered to resume for tonight. * With resumption of home oral meds, Novolog Carb ratio with today's dinner meal was loosened to a weight based stress of 1. 07/28 * Yayo received 10 units of basal and 23 units of bolus insulin yesterday * Fasting BSG remains well controlled but postprandial BSGs above ideal goal of 150 mg/dL * Plan for rehab on discharge, awaiting acceptance based on insurance coverage 07/27 * 79yo T2DM male with adequate outpatient control on multiple oral agents. A1c in goal range at 6.9% * Oral agents on hold for admission post-operatively. * Initiated weight based Sq basal bolus insulin regimen * Pt has been receiving ~24 units of insulin per day * 10 units of basal insulin * 14 units of bolus insulin * BSGs ranging 85-191mg/dl * Goal is to maintain BSGs <200 mg/dl (ideally <150 mg/dl) to prevent post op infectious complications * No changes needed at this time PLAN FOR INPATIENT GLYCEMIC CONTROL: * Resume home anti-diabetic oral meds- Metformin and Januvia. * Basal insulin - Lantus on hold. Possibly d/c tomorrow. * Bolus insulin - loosened CR * NovoLog per scale ACHS or Q6hrs while NPO * Goal Range: Low 110 mg/dL - High 140 mg/dL * Correction Factor: 20 mg/dL/unit * Nutritional / Prandial insulin per carb ratio of 1 unit per 14 grams CHO consumed PLAN FOR DISCHARGE: * Resume outpatient oral agents as A1c well controlled at 6.9%
[2019-07-29] MEDS ORDERED: SITAGLIPTIN PHOSPHATE 100 MG TAB PO SCH (21:00)
--- NOTE | 2019-08-02 03:21 | Discharge Summary ---
ADMITTING PHYSICIAN AND SURGEON: Dr. Richy Smith. ADMITTING DIAGNOSIS: Right knee degenerative joint disease. SURGERY PERFORMED: Right total knee arthroplasty. SECONDARY DIAGNOSES: Hypertension, elevated cholesterol, heart murmur, asthma, chronic obstructive pulmonary disease, diabetes, gastroesophageal reflux disease, back pain. CONSULTS: None obtained. HISTORY AND PHYSICAL EXAMINATION: Well documented in the patient's chart. HOSPITAL COURSE: The patient was admitted on 07/25/2019, underwent total knee arthroplasty. There were no complications. He was transferred to the PACU postoperatively and later to the orthopedic floor for further care. He was given Ancef for antibiotic prophylaxis, JANETTE stockings, SCDs and aspirin for DVT prophylaxis. Hemoglobin, hematocrit and vital signs were monitored during his hospital stay and remained stable, did not require any blood transfusions. He had some confusion postoperatively, but this resolved. He had some urinary retention, but had a straight cath, no complications. By postoperative day #4, he was tolerating a diabetic diet. Pain was controlled with oral pain medicine. He was participating in physical therapy. By postop day #4, he was transferred to a senior care facility. He was given printed discharge instructions as well as new prescriptions for extra-strength Tylenol, aspirin, iron supplement and tramadol. Continue home medicines. Continue physical therapy, weightbearing as tolerated, JANETTE stockings. Follow up in approximately 2 weeks postop or sooner if there are any problems or concerns.
== END 2019-07-29 18:05 | DRG 470 ==
LOC: ASU 09:59 → 3E 15:15

== ENCOUNTER 2019-08-15 22:38 | Inpatient (IN) ==
[2019-08-16 00:07] LABS: Basophils # (auto) 0.03 K/uL (0-0.2); Basophils % (auto) 0.4 %; Eosinophils # (auto) 0.24 K/uL (0-0.5); Eosinophils % (auto) 3.3 %; Hematocrit (blood only) 36.3 % (42-52); Hemoglobin 12.3 g/dL (14.0-18.0); Immature Granulocytes # (auto) 0.01 K/uL (0.00-0.02); Immature Granulocytes % (auto) 0.1 %; Lymphocytes # (auto) 1.67 K/uL (1.2-3.4); Mean Corpuscular Hemoglobin 31.6 pg (25-34); Mean Corpuscular Hgb Conc 33.9 g/dL (32-36); Mean Corpuscular Volume 93.3 fL (80-100); Mean Platelet Volume 9.9 fL (7.4-10.4); Monocytes # (auto) 0.76 K/uL (0.11-0.59); Monocytes % (auto) 10.5 %; Neutrophils # (auto) 4.56 K/uL (1.4-6.5); Neutrophils % (auto) 62.7 %; Platelet Count 321 K/uL (130-400); RDW Coefficient of Variation 13.2 % (11.5-14.5); RDW Standard Deviation 45.2 fL (36.4-46.3); Red Blood Count 3.89 M/uL (4.7-6.1); White Blood Count 7.27 K/uL (4.8-10.8)
[2019-08-16 00:20] LABS: INR 1.1 (0.9-1.1); Partial Thromboplastin Time 26.5 Seconds (21.0-31.0); Prothrombin Time 11.3 Seconds (9.0-12.0)
[2019-08-16 00:24] LABS: Albumin Level 3.4 gm/dl (3.4-5.0); Calcium 9.1 mg/dl (8.5-10.1); Creatinine Clr Calc Pharmacy 62.4 ml/min; Est GFR (African American) 66.7; Est GFR (Non-African American) 57.6; Potassium 4.4 mmol/L (3.5-5.1)
[2019-08-16 00:27] LABS: Albumin Globulin Ratio 0.7 (0.9-2); Bilirubin,Total 0.4 mg/dl (0.2-1); Globulin 4.8 gm/dl (2.5-4.0); Total Protein 8.2 gm/dl (6.4-8.2)
[2019-08-16 00:30] LABS: Appearance Urine Turbid (Clear); Blood Urine 3+ (Negative); Color Urine Red; Glucose Urine UA Negative (Negative); Ketones Urine Trace (Negative); Leukocyte Esterase Urine Negative (Negative); Nitrite Urine Negative (Negative); Protein Urine 3+ (Negative); Specific Gravity Urine >= 1.030 (1.000-1.030); Urobilinogen Urine Negative (Negative)
[2019-08-16 00:35] LABS: Bilirubin Urine Negative (Negative); Ictotest Urine Negative (Negative)
[2019-08-16 00:41] LABS: Bacteria Urine 2+ (Negative); Epithelial Cell Urine 0-5 /lpf (0-5); RBC Urine >30 /hpf (0-4)
[2019-08-16] MEDS ORDERED: SODIUM CHLORIDE 0.9% 500 ML IV ONE (01:21)
--- NOTE | 2019-08-16 02:36 | History & Physical Report ---
Date of Service August 16, 2019 Assessment & Plan (1) Hematuria: Patient with ongoing hematuria, suprapubic and left flank discomfort. Hemodynamically stable. Guerrero in place with dark bloody output, no clots presently but family reports clots prior to draining bag. Patient has been seen by Urology on 08/13, had cystoscopy - +hematuria with clots at that time, no clear bleeding source identified. ?hemorrhagic uti vs renal source. -Admit to medical floor with telemetry -CBC q 8 hours - transfuse for Hgb <7 or symptomatic anemia -Urine microscopy - ?renal vs bladder source of bleeding -Check renal US -Bladder irrigation as needed -Monitor strict I/O -Urology consultation appreciated -Continue Flomax, Finasteride -Morphine and Percocet PRN pain -Bowel regimen with Dulcolax, Colace, Miralax PRN -Hold Aspirin Present on Admission?: Yes (2) Abdominal pain: Patient with lower abdominal discomfort associated with urination, also with left flank pain -Check renal US -Morphine and Percocet PRN -Bowel regimen Present on Admission?: Yes (3) Benign prostatic hyperplasia: Chronic. Stable -Continue Flomax and FInasteride -Urology consultation as above Present on Admission?: Yes (4) Seizure: Chronic. Stable. Patient with no recent seizure activity -Continue Tegretol Present on Admission?: Yes (5) Hypertension: Blood pressure stable at present -Continue Toprol XL -Continue Benazepril -Continue to monitor Present on Admission?: Yes (6) Dyslipidemia: Chronic. Stable -Continue Lipitor (7) Diabetes: Chronic. Well controlled on oral agents -Hold Glimepiride, Januvia, Metformin and Pioglitazone inpatient -Lantus BID and ISS -Continue to monitor Present on Admission?: Yes (8) PAD (peripheral artery disease): Chronic. Stable -Holding ASA in setting of bleed -Continue statin Present on Admission?: Yes (9) COPD (chronic obstructive pulmonary disease): Stable respiratory status. No wheeze -Continue Advair Present on Admission?: Yes (10) PUD (peptic ulcer disease): Chronic. No active bleeding. Patient had a massive GIB in the past and told that he had a "nervous stomach". He was placed on Librium and Dicyclomine and has continued on it ever since -Continue Ranitidine. -Continue Librium and Dicyclomine F/E/N - NSS, monitor electrolytes and replete as needed, NPO for now Ppx - SCDs Code - Full Dispo - Admit to medical with tele History of Present Illness Chief Complaint: hematuria Primary Care Provider: Valerie Benavidez 79yo C male with hematuria. Patient had a knee replacement performed on 07/25/[address] Smith which went well. He had some urinary retention requiring several straight catheterizations. He was discharged to rehab at [facility] in stable condition on 07/29/19. He reports dark hematuria with clots since then as well as severe dysuria, frequency/urgency and suprapubic discomfort. Reports large amount of clot passing as well. He was seen in the ER at [facility] in [place], [place] on 08/06/19 with complaint of hematuria and increased urinary frequency. UA was positive for blood and WBCs. His bladder scan was performed which revealed 50mL only, no retention. Patient was given a prescription for Cipro 500mg po BID x 10 days for possible CAUTI. He was seen in [facility] ER on 08/11/19 with complaint of hematuria, dysuria and flank pain. He had a CT of the abdomen which revealed chronic bladder outlet obstruction secondary to prostamegaly. Punctate nonobstructing right renal calculus with no hydronephrosis. He was started on Flomax and Finasteride at that time. His Ciproflaxacin was discontinued and he was started on Augmentin. He was seen by Urology on 08/13/19 with the same complaints of hematuria and dysuria. He had a cystoscopy performed by Dr. Tim which revealed moderate inflammation of the bladder wall, large amount of old clot present. No tumor noted. Patient had a Guerrero catheter placed and was given Ciprofloxacin x 2 doses. Plan to maintain Guerrero in place x 1 week and have a repeat cystoscopy in 3 months. Patient was instructed to continue finasteride and tamsulosin. He presents today with continued hematuria with clot passage as well as severe suprapubic discomfort. ER: NSS Allergies Allergy/AdvReac Type Severity Reaction Status Date / Time No Known Allergies Allergy Verified 08/15/19 23:01 Home Medications Home Medications Medication Instructions Recorded Confirmed Type Januvia 100 mg PO QPM 06/26/19 08/15/19 History acetaminophen-codeine 1 tab PO Q6H PRN 06/26/19 08/15/19 History atorvastatin [Lipitor] 10 mg PO HS 06/26/19 08/15/19 History benazepril [Lotensin] 10 mg PO QAM 06/26/19 08/15/19 History carbamazepine [Tegretol] 200 mg PO BID 06/26/19 08/15/19 History dicyclomine 10 mg PO BID PRN 06/26/19 08/15/19 History fluticasone propion-salmeterol 1 inh INHALATION Q12H PRN 06/26/19 08/15/19 History [Advair Diskus] glimepiride 4 mg PO QAM 06/26/19 08/15/19 History metoprolol succinate [Toprol XL] 25 mg PO BID 06/26/19 08/15/19 History omega [id number] oil [Fish Oil] 1 cap PO QAM 06/26/19 08/15/19 History pioglitazone [Actos] 15 mg PO QAM 06/26/19 08/15/19 History ranitidine HCl 150 mg PO BID 06/26/19 08/15/19 History aspirin [Ecotrin Low Strength] 81 mg PO BID 45 Days #90 tab 07/26/19 08/15/19 Rx ferrous sulfate 325 mg PO BID 08/11/19 08/15/19 History metformin 1,000 mg PO BID 08/11/19 08/15/19 History multivitamin with minerals 1 tab PO QAM 08/11/19 08/15/19 History [Multiple Vitamin-Minerals] oxycodone 5 mg PO Q4 PRN 08/11/19 08/15/19 History tamsulosin [Flomax] 0.4 mg PO DAILY #20 cap 08/11/19 08/15/19 Rx acetaminophen 325 mg PO Q6H PRN 08/15/19 08/15/19 History acetaminophen [Tylenol] 650 mg PO Q4H PRN 08/15/19 08/15/19 History amoxicillin-pot clavulanate 1 tab PO BID 08/15/19 08/15/19 History [Augmentin] bisacodyl [Dulcolax (bisacodyl)] 10 mg AK DAILY PRN 08/15/19 08/15/19 History chlordiazepoxide HCl 10 mg PO BID 08/15/19 08/15/19 History finasteride 5 mg PO HS 08/15/19 08/15/19 History Past Med/Surg History Medical History Anemia hx Anxiety BPH (benign prostatic hyperplasia) Cardiac murmur no problems per daughter. "an irregular heartbeat" Carotid artery disease Chronic kidney disease stage 2 Chronic obstructive pulmonary disease Degenerative cervical disc Degenerative disc disease Depression Diabetes mellitus, type 2 niddm GI bleed hx Hx of fracture possible jaw fracture with surgery. no difficulty opening mouth Hx of head injury 1976 Hyperlipidemia Hypertension Kidney stones hx Osteoarthritis PAC (premature atrial contraction) per pcp documentation PAD (peripheral artery disease) Peptic ulcer disease hx Poor historian Schatzki's ring per pcp documentation Seizure r/t head injury (1976) patient does not know when his last seizure was, states it was at least for 38 years. follows with PCP. Spinal stenosis Surgical History Fusion of spine Full ROM H/O elbow surgery right H/O neck surgery with revision to screw in his neck H/O of nasal cauterization History of angioplasty of peripheral vessel bilateral leg History of arthroscopy of right knee History of colonoscopy History of discectomy cervical History of esophagogastroduodenoscopy (EGD) History of tooth extraction History of total knee replacement left S/P epidural steroid injection Family History Father Family history of diabetes mellitus Sister FHx: liver cancer Social History Preferred Language: [place] Communication Ability: Effective Shipping 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 Manager Required: No Beliefs That Will Affect Care: None Current Living Situation: Alone Other Information That Helps Us Care for You: No Feels Safe at Home: Yes Safety Concerns: Feels Safe At This Time Smoking Status: Former smoker Tobacco Type: cigarettes ; Smoking End Date: 30 years ago ; Second Hand Exposure: No ; Hx Alcohol Use: Yes Alcohol type: wine Hx Substance Use: No Review of Systems Review of Systems: +back pain +suprapubic pain after urination +dysuria +fatigue +weakness +palpitations Physical Exam Physical Exam: General: patient resting comfortably, NAD, non-toxic in appearance, AA&O x 4 Skin: warm, dry, intact, no rashes or lesions HEENT: NC/AT, PERRL, EOMI, anicteric sclera, conjunctiva without injection, external ear normal to inspection and nontender, nares patent, moist mucus membranes, dentition intact, no oropharyngeal lesions, neck supple, trachea midline, no LAD, no thyromegaly, no JVD Heart: +S1/S2, regular, no m/r/g Lungs: equal air entry bilaterally, no rales/rhonchi/wheezes Abd: +BS, soft, ND, no masses/organomegaly/ascites, +Suprapubic tenderness, Guerrero in place with hematuria Ext: warm, 2+ pulses in UE/LE bilaterally, no clubbing/cyanosis or edema Neuro: nonfocal, patient AA&O x 4, speech intact, no facial droop, moving all extremities on command with equal strength 5/5 Results & Data Vital Signs (Past 12 Hours) Vital Signs Temp Pulse Pulse Resp BP BP Pulse Ox 08/16/19 01:27 90 18 113/79 96 08/15/19 23:57 91 H 18 136/80 96 08/15/19 22:41 36.7 C 101 H 22 138/73 97 Laboratory Results Lab Results 08/15/19 08/15/19 08/15/19 Range/Units 23:40 23:40 23:40 WBC 7.27 (4.8-10.8) K/uL RBC 3.89 L (4.7-6.1) M/uL Hgb 12.3 L (14.0-18.0) g/dL Hct 36.3 L (42-52) % MCV 93.3 (80-100) fL MCH 31.6 (25-34) pg MCHC 33.9 (32-36) g/dL RDW Std Deviation 45.2 (36.4-46.3) fL RDW Coeff of Federico 13.2 (11.5-14.5) % Plt Count 321 (130-400) K/uL MPV 9.9 (7.4-10.4) fL Immature Gran % (Auto) 0.1 % Neut % (Auto) 62.7 % Lymph % (Auto) 23.0 % Bland % (Auto) 10.5 % Eos % (Auto) 3.3 % Baso % (Auto) 0.4 % Immature Gran # (Auto) 0.01 (0.00-0.02) K/uL Neut # (Auto) 4.56 (1.4-6.5) K/uL Lymph # (Auto) 1.67 (1.2-3.4) K/uL Bland # (Auto) 0.76 H (0.11-0.59) K/uL Eos # (Auto) 0.24 (0-0.5) K/uL Baso # (Auto) 0.03 (0-0.2) K/uL PT 11.3 (9.0-12.0) Seconds INR 1.1 (0.9-1.1) APTT 26.5 (21.0-31.0) Seconds PTT Ratio 1.0 Sodium 137 (136-145) mmol/L Potassium 4.4 (3.5-5.1) mmol/L Chloride 103 (98-107) mmol/L Carbon Dioxide 26 (21-32) mmol/L Anion Gap 8.0 (3-11) BUN 16 (7-18) mg/dl Creatinine 1.20 (0.6-1.4) mg/dl Est Cr Clr Drug Dosing 62.4 ml/min Est GFR ( Amer) 66.7 Est GFR (Non-Af Amer) 57.6 BUN/Creatinine Ratio 13.0 (10-20) Glucose 71 (70-99) mg/dl Lactate (0.4-2.0) mmol/L Calcium 9.1 (8.5-10.1) mg/dl Phosphorus (2.5-4.9) mg/dl Magnesium (1.8-2.4) mg/dl Total Bilirubin 0.4 (0.2-1) mg/dl AST 19 (15-37) U/L ALT 25 (12-78) U/L Alkaline Phosphatase 88 (45-117) U/L Total Protein 8.2 (6.4-8.2) gm/dl Albumin 3.4 (3.4-5.0) gm/dl Globulin 4.8 H (2.5-4.0) gm/dl Albumin/Globulin Ratio 0.7 L (0.9-2) Urine Color Urine Appearance (Clear) Urine pH (4.5-7.5) Ur Specific [place] (1.000-1.030) Urine Protein (Negative) Urine Glucose (UA) (Negative) Urine Ketones (Negative) Urine Blood (Negative) Urine Nitrite (Negative) Urine Bilirubin (Negative) Urine Urobilinogen (Negative) Ur Leukocyte Esterase (Negative) Urine RBC (0-4) /hpf Urine WBC (0-5) /hpf Ur Epithelial Cells (0-5) /lpf Ur Renal Epithelial Cell (0-5) /lpf Urine Bacteria (Negative) RBC Casts (0) /lpf 08/15/19 08/15/19 08/16/19 Range/Units 23:50 23:56 03:12 WBC 7.37 (4.8-10.8) K/uL RBC 3.51 L (4.7-6.1) M/uL Hgb 11.0 L (14.0-18.0) g/dL Hct 33.2 L (42-52) % MCV 94.6 (80-100) fL MCH 31.3 (25-34) pg MCHC 33.1 (32-36) g/dL RDW Std Deviation 45.9 (36.4-46.3) fL RDW Coeff of Federico 13.2 (11.5-14.5) % Plt Count 282 (130-400) K/uL MPV 9.8 (7.4-10.4) fL Immature Gran % (Auto) 0.1 % Neut % (Auto) 58.9 % Lymph % (Auto) 24.6 % Bland % (Auto) 12.6 % Eos % (Auto) 3.3 % Baso % (Auto) 0.5 % Immature Gran # (Auto) 0.01 (0.00-0.02) K/uL Neut # (Auto) 4.34 (1.4-6.5) K/uL Lymph # (Auto) 1.81 (1.2-3.4) K/uL Bland # (Auto) 0.93 H (0.11-0.59) K/uL Eos # (Auto) 0.24 (0-0.5) K/uL Baso # (Auto) 0.04 (0-0.2) K/uL PT (9.0-12.0) Seconds INR (0.9-1.1) APTT (21.0-31.0) Seconds PTT Ratio Sodium (136-145) mmol/L Potassium (3.5-5.1) mmol/L Chloride (98-107) mmol/L Carbon Dioxide (21-32) mmol/L Anion Gap (3-11) BUN (7-18) mg/dl Creatinine (0.6-1.4) mg/dl Est Cr Clr Drug Dosing ml/min Est GFR ( Amer) Est GFR (Non-Af Amer) BUN/Creatinine Ratio (10-20) Glucose (70-99) mg/dl Lactate 3.7 H* (0.4-2.0) mmol/L Calcium (8.5-10.1) mg/dl Phosphorus (2.5-4.9) mg/dl Magnesium (1.8-2.4) mg/dl Total Bilirubin (0.2-1) mg/dl AST (15-37) U/L ALT (12-78) U/L Alkaline Phosphatase (45-117) U/L Total Protein (6.4-8.2) gm/dl Albumin (3.4-5.0) gm/dl Globulin (2.5-4.0) gm/dl Albumin/Globulin Ratio (0.9-2) Urine Color Red Urine Appearance Turbid A (Clear) Urine pH 5.0 (4.5-7.5) Ur Specific [place] >= 1.030 (1.000-1.030) Urine Protein 3+ H (Negative) Urine Glucose (UA) Negative (Negative) Urine Ketones Trace H (Negative) Urine Blood 3+ H (Negative) Urine Nitrite Negative (Negative) Urine Bilirubin Negative (Negative) Urine Urobilinogen Negative (Negative) Ur Leukocyte Esterase Negative (Negative) Urine RBC >30 H (0-4) /hpf Urine WBC 10-30 H (0-5) /hpf Ur Epithelial Cells 0-5 (0-5) /lpf Ur Renal Epithelial Cell 5-10 H (0-5) /lpf Urine Bacteria 2+ H (Negative) RBC Casts 1-5 H (0) /lpf 08/16/19 Range/Units 03:12 WBC (4.8-10.8) K/uL RBC (4.7-6.1) M/uL Hgb (14.0-18.0) g/dL Hct (42-52) % MCV (80-100) fL MCH (25-34) pg MCHC (32-36) g/dL RDW Std Deviation (36.4-46.3) fL RDW Coeff of Federico (11.5-14.5) % Plt Count (130-400) K/uL MPV (7.4-10.4) fL Immature Gran % (Auto) % Neut % (Auto) % Lymph % (Auto) % Bland % (Auto) % Eos % (Auto) % Baso % (Auto) % Immature Gran # (Auto) (0.00-0.02) K/uL Neut # (Auto) (1.4-6.5) K/uL Lymph # (Auto) (1.2-3.4) K/uL Bland # (Auto) (0.11-0.59) K/uL Eos # (Auto) (0-0.5) K/uL Baso # (Auto) (0-0.2) K/uL PT (9.0-12.0) Seconds INR (0.9-1.1) APTT (21.0-31.0) Seconds PTT Ratio Sodium (136-145) mmol/L Potassium (3.5-5.1) mmol/L Chloride (98-107) mmol/L Carbon Dioxide (21-32) mmol/L Anion Gap (3-11) BUN (7-18) mg/dl Creatinine (0.6-1.4) mg/dl Est Cr Clr Drug Dosing ml/min Est GFR ( Amer) Est GFR (Non-Af Amer) BUN/Creatinine Ratio (10-20) Glucose (70-99) mg/dl Lactate (0.4-2.0) mmol/L Calcium (8.5-10.1) mg/dl Phosphorus 3.1 (2.5-4.9) mg/dl Magnesium 1.4 L (1.8-2.4) mg/dl Total Bilirubin (0.2-1) mg/dl AST (15-37) U/L ALT (12-78) U/L Alkaline Phosphatase (45-117) U/L Total Protein (6.4-8.2) gm/dl Albumin (3.4-5.0) gm/dl Globulin (2.5-4.0) gm/dl Albumin/Globulin Ratio (0.9-2) Urine Color Urine Appearance (Clear) Urine pH (4.5-7.5) Ur Specific [place] (1.000-1.030) Urine Protein (Negative) Urine Glucose (UA) (Negative) Urine Ketones (Negative) Urine Blood (Negative) Urine Nitrite (Negative) Urine Bilirubin (Negative) Urine Urobilinogen (Negative) Ur Leukocyte Esterase (Negative) Urine RBC (0-4) /hpf Urine WBC (0-5) /hpf Ur Epithelial Cells (0-5) /lpf Ur Renal Epithelial Cell (0-5) /lpf Urine Bacteria (Negative) RBC Casts (0) /lpf Diagnostic Findings By my interpretation the study shows mildly enlarged cardiac silhouette. No PNA, edema or PTX. Calcified aortic arch ECG Additional Comments: The study shows NSR at 92bpm, normal axis, CM=411, QRS=74, SUu=480, no acute ischemic changes Code Status & VTE Plan Code Status FULL VTE Prophylaxis Plan VTE Prophylaxis will be ordered: Yes PG Care Time/CCT Total # of Minutes Spent Total Time Spent with Patient: Total time spent is greater than 50% in coordination of care (as documented) at patient's floor/unit and/or counseling patient: (1) Benign prostatic hyperplasia Lower urinary tract symptom detail: straining on urination Lower urinary tract symptom presence: symptoms present Qualified Code(s): N40.1 - Benign prostatic hyperplasia with lower urinary tract symptoms; R39.16 - Straining to void (2) Hematuria Hematuria type: gross Qualified Code(s): R31.0 - Gross hematuria (3) Diabetes Diabetes mellitus complication status: without complication Diabetes mellitus intermediate insulin use: without intermediate accountant use Diabetes mellitus type: type 2 Qualified Code(s): E11.9 - Type 2 diabetes mellitus without complications (4) COPD (chronic obstructive pulmonary disease) COPD type: unspecified COPD Qualified Code(s): J44.9 - Chronic obstructive pulmonary disease, unspecified (5) Abdominal pain Abdominal location: lower abdomen, unspecified Qualified Code(s): R10.30 - Lower abdominal pain, unspecified (6) Hypertension Hypertension type: essential hypertension Qualified Code(s): I10 - Essential (primary) hypertension
[2019-08-16] MEDS ORDERED: GLUCOSE 10 TABS/TUBE PO PRN (02:55)
[2019-08-16] MEDS ORDERED: GLUCAGON FOR INJ 1 MG VIAL SQ PRN (02:55)
[2019-08-16] MEDS ORDERED: DOCUSATE SODIUM 100 MG CAP PO PRN (02:55)
[2019-08-16] MEDS ORDERED: DEXTROSE 50% 50 ML SYRINGE IV PRN (02:55)
[2019-08-16] MEDS ORDERED: CARBOHYDRATES FOR HYPOGLYCEMIA PO PRN (02:55)
[2019-08-16] MEDS ORDERED: ACETAMINOPHEN 325 MG TAB PO PRN (02:55)
[2019-08-16] MEDS ORDERED: GLUCOSE 40% GEL 15 GM TUBE PO PRN (02:55)
[2019-08-16] MEDS ORDERED: BISACODYL 10 MG SUPP PR PRN (02:55)
[2019-08-16] MEDS ORDERED: DICYCLOMINE HCL 10 MG CAP PO PRN (02:55)
[2019-08-16] MEDS ORDERED: POLYETHYLENE (MIRALAX) 17 GM PACK PO PRN (02:55)
[2019-08-16] MEDS ORDERED: MoRPHine SULFATE 2 MG/ML CARP IV PRN (02:55)
[2019-08-16 03:22] LABS: Basophils # (auto) 0.04 K/uL (0-0.2); Basophils % (auto) 0.5 %; Eosinophils # (auto) 0.24 K/uL (0-0.5); Eosinophils % (auto) 3.3 %; Hematocrit (blood only) 33.2 % (42-52); Immature Granulocytes # (auto) 0.01 K/uL (0.00-0.02); Immature Granulocytes % (auto) 0.1 %; Lymphocytes # (auto) 1.81 K/uL (1.2-3.4); Lymphocytes % (auto) 24.6 %; Mean Corpuscular Hemoglobin 31.3 pg (25-34); Mean Corpuscular Hgb Conc 33.1 g/dL (32-36); Mean Corpuscular Volume 94.6 fL (80-100); Mean Platelet Volume 9.8 fL (7.4-10.4); Monocytes # (auto) 0.93 K/uL (0.11-0.59); Monocytes % (auto) 12.6 %; Neutrophils # (auto) 4.34 K/uL (1.4-6.5); Neutrophils % (auto) 58.9 %; Platelet Count 282 K/uL (130-400); RDW Coefficient of Variation 13.2 % (11.5-14.5); RDW Standard Deviation 45.9 fL (36.4-46.3); Red Blood Count 3.51 M/uL (4.7-6.1); White Blood Count 7.37 K/uL (4.8-10.8)
[2019-08-16] MEDS: LACTATED RINGER'S 1,000 ML IV SCH ×2 (03:28→12:01)
[2019-08-16 03:45] LABS: Magnesium 1.4 mg/dl (1.8-2.4); Phosphorus 3.1 mg/dl (2.5-4.9)
[2019-08-16] MEDS: OXYCODONE HCL IR 5 MG TAB (IMMEDIATE RELEASE) PO PRN ×3 (04:37→19:37)
--- NOTE | 2019-08-16 06:13 | Emergency Department Note ---
Entered by Lisseth Walker acting as a scribe for Chelsy Harley DO History of Present Illness General Chief complaint: Hematuria Stated complaint: BLOOD IN URINE, HAS CATHETER, Time Seen by Provider: 08/15/19 22:57 Source: patient and family History of Present Illness Provider complaint: hematuria Onset (ago): week(s) 2 Pain Consistency: + other (perisistant ) Maximum Pain Intensity: 7 Relieved By: not by medication (antibiotics) Exacerbated By: + none Associated symptoms: + weakness and + other (+lack of sleep, +buring during urination, +dizziness) The patient is a 79 year old male who presents to the Emergency Room with complaints of persistent hematuria. The patient reports that he had a knee replacement surgery on July 25 where they put a catheter in to drain blood clots. He notes that when he went to physical rehab he continued to have blood clots and burning during urination. He states that he went to an ED where they prescribed him antibiotics, but notes that his infection worsened after he went home. He reports that he went to the ED again where they gave him IV fluids and Cipro. He states that they measured a low BP while he was there. He mentions that he is still taking Cipro. The patient reports that he saw Dr. Tim after his ED visit here where he irrigated the catheter, but the hematuria continued immediately after going home. The patient states that he has continuing burning during urination, weakness, lack of sleep, dizziness, and back pain. He mentions that he has had worsening abdominal pain since the surgery, as well as weight lo ss of 16 lbs. The patient states that he was at his PCP today where they checked him positive for blood in his stool. The patient states that he has a history of stomach bleeding where he had a blood transfusion. The family mentions that the patient has not been himself recently and are concerned of sepsis. Home Medications Home Medications Medication Instructions Recorded Confirmed Type Januvia 100 mg PO QPM 06/26/19 08/15/19 History acetaminophen-codeine 1 tab PO Q6H PRN 06/26/19 08/15/19 History atorvastatin [Lipitor] 10 mg PO HS 06/26/19 08/15/19 History benazepril [Lotensin] 10 mg PO QAM 06/26/19 08/15/19 History carbamazepine [Tegretol] 200 mg PO BID 06/26/19 08/15/19 History dicyclomine 10 mg PO BID PRN 06/26/19 08/15/19 History fluticasone propion-salmeterol 1 inh INHALATION Q12H PRN 06/26/19 08/15/19 History [Advair Diskus] glimepiride 4 mg PO QAM 06/26/19 08/15/19 History metoprolol succinate [Toprol XL] 25 mg PO BID 06/26/19 08/15/19 History omega 6-asn-egh-fish oil [Fish Oil] 1 cap PO QAM 06/26/19 08/15/19 History pioglitazone [Actos] 15 mg PO QAM 06/26/19 08/15/19 History ranitidine HCl 150 mg PO BID 06/26/19 08/15/19 History aspirin [Ecotrin Low Strength] 81 mg PO BID 45 Days #90 tab 07/26/19 08/15/19 Rx ferrous sulfate 325 mg PO BID 08/11/19 08/15/19 History metformin 1,000 mg PO BID 08/11/19 08/15/19 History multivitamin with minerals 1 tab PO QAM 08/11/19 08/15/19 History [Multiple Vitamin-Minerals] oxycodone 5 mg PO Q4 PRN 08/11/19 08/15/19 History tamsulosin [Flomax] 0.4 mg PO DAILY #20 cap 08/11/19 08/15/19 Rx acetaminophen 325 mg PO Q6H PRN 08/15/19 08/15/19 History acetaminophen [Tylenol] 650 mg PO Q4H PRN 08/15/19 08/15/19 History amoxicillin-pot clavulanate 1 tab PO BID 08/15/19 08/15/19 History [Augmentin] bisacodyl [Dulcolax (bisacodyl)] 10 mg NE DAILY PRN 08/15/19 08/15/19 History chlordiazepoxide HCl 10 mg PO BID 08/15/19 08/15/19 History finasteride 5 mg PO HS 08/15/19 08/15/19 History Allergies Allergy/AdvReac Type Severity Reaction Status Date / Time No Known Allergies Allergy Verified 08/15/19 23:01 Past Med/Surg History Medical History Anemia hx Anxiety BPH (benign prostatic hyperplasia) Cardiac murmur no problems per daughter. "an irregular heartbeat" Carotid artery disease Chronic kidney disease stage 2 Chronic obstructive pulmonary disease Degenerative cervical disc Degenerative disc disease Depression Diabetes mellitus, type 2 niddm GI bleed hx Hx of fracture possible jaw fracture with surgery. no difficulty opening mouth Hx of head injury 1976 Hyperlipidemia Hypertension Kidney stones hx Osteoarthritis PAC (premature atrial contraction) per pcp documentation PAD (peripheral artery disease) Peptic ulcer disease hx Poor historian Schatzki's ring per pcp documentation Seizure r/t head injury (1976) patient does not know when his last seizure was, states it was at least for 38 years. follows with PCP. Spinal stenosis Surgical History Fusion of spine Full ROM H/O elbow surgery right H/O neck surgery with revision to screw in his neck H/O of nasal cauterization History of angioplasty of peripheral vessel bilateral leg History of arthroscopy of right knee History of colonoscopy History of discectomy cervical History of esophagogastroduodenoscopy (EGD) History of tooth extraction History of total knee replacement left S/P epidural steroid injection Family History Father Family history of diabetes mellitus Sister FHx: liver cancer Social History Preferred Language: Martiniquais Communication Ability: Effective Typewriter Assembler Required: No Beliefs That Will Affect Care: None Current Living Situation: Alone Other Information That Helps Us Care for You: No Feels Safe at Home: Yes Safety Concerns: Feels Safe At This Time Smoking Status: Former smoker Tobacco Type: cigarettes ; Smoking End Date: 30 years ago ; Second Hand Exposure: No ; Hx Alcohol Use: Yes Alcohol type: wine Hx Substance Use: No Review of Systems See HPI for pertinent positives & negatives. and A total of 10 systems reviewed and were otherwise negative Physical Exam Vital Signs Vital Signs - 24 hr 08/15/19 22:41 08/15/19 23:57 08/16/19 01:27 Temperature 36.7 C Temperature Source Oral Sepsis Recent Fever Within 48 Hours No Sepsis Action Taken by Nursing No Action Required Pulse Rate 101 H Pulse Rate [Finger] 91 H 90 Respiratory Rate 22 18 18 Blood Pressure 138/73 Blood Pressure [Right Arm] 136/80 113/79 Blood Pressure Mean 94 Blood Pressure Mean [Right Arm] 98 90 Pulse Oximetry 97 96 96 Oxygen Delivery Method Room Air Room Air Room Air HEENT: Head - normocephalic and atraumatic Pupils are equal, round, and reactive to light. Extraocular eye muscles are intact, and sclera are anicteric. Conjunctiva of the eyes are pale. Nose - moist nasal mucosa without discharge. Mouth - dry buccal mucosa. Oropharynx is nonerythematous and there is no tonsillar exudate or edema noted. Neck: Supple; no JVD, nuchal rigidity, cervical lymphadenopathy. Heart: Regular rate and rhythm. There is a normal S1 and S2 with no murmurs, clicks, or gallops appreciated. Lungs: Clear to auscultation bilaterally with no wheezes, rales, or rhonchi. Abdomen: Soft, nondistended, with good bowel sounds. Left lower quadrant pain. There are no palpable pulsatile masses or hepatosplenomegaly. There is no guarding, rigidity, or rebound noted. Rectal: Light brown stool, heme negative. Extremities: No evidence of cyanosis, clubbing, or edema. There are easily palpable peripheral pulses. Skin: pale, warm, and dry with good turgor and no rashes. Course 2300: The patient was evaluated in room A11B, and a complete history and p hysical examination were performed. Records reviewed that the patient's hemoglobin on the was 11.2 and his platelet count was 344. A septic protocol was performed. The patient had a twelve-lead EKG and chest x-ray. 0044: I reviewed the patient's case with Dr. Smith- [facility] Hospitalist. He will evaluate the patient for further management. 0050: I reviewed the results with the patient and his family. 0126: Sodium chloride was administered through IV. Administered Medications Lactated Ringer's (Lr) 1,000 mls @ 125 mls/hr IV .Q8H KELI Stop: 08/16/19 18:54 Last Admin: 08/16/19 03:28 Dose: 125 mls/hr Documented by: [id number] Oxycodone HCl (Roxicodone Immediate Rel) 5 mg PO Q4H PRN PRN Reason: Pain Stop: 08/30/19 03:14 Last Admin: 08/16/19 04:37 Dose: 5 mg Documented by: [id number] Discontinued Medications Sodium Chloride (Nss) 500 mls @ 999 mls/hr IV .Q31M ONE Stop: 08/16/19 01:51 Last Infusion: 08/16/19 01:59 Dose: 0 mls/hr Documented by: [id number] Admin: 08/16/19 01:26 Dose: 999 mls/hr Documented by: [id number] Medical Decision Making Differential Diagnosis Differential diagnoses include but are not limited to anemia, dehydration, sepsis, UTI, bacteremia, GI bleed, and diverticulitis. Medical Records Attestation: I reviewed the patient's medical records. Home Medications Current Medication List: was personally reviewed by me Laboratory Data Attestation: I reviewed the patient's lab results. Result diagrams: 08/16/19 03:12 08/15/19 23:40 Lab Results 08/15/19 08/15/19 08/15/19 Range/Units 23:40 23:40 23:40 WBC 7.27 (4.8-10.8) K/uL RBC 3.89 L (4.7-6.1) M/uL Hgb 12.3 L (14.0-18.0) g/dL Hct 36.3 L (42-52) % MCV 93.3 (80-100) fL MCH 31.6 (25-34) pg MCHC 33.9 (32-36) g/dL RDW Std Deviation 45.2 (36.4-46.3) fL RDW Coeff of Federico 13.2 (11.5-14.5) % Plt Count 321 (130-400) K/uL MPV 9.9 (7.4-10.4) fL Immature Gran % (Auto) 0.1 % Neut % (Auto) 62.7 % Lymph % (Auto) 23.0 % Sevier % (Auto) 10.5 % Eos % (Auto) 3.3 % Baso % (Auto) 0.4 % Immature Gran # (Auto) 0.01 (0.00-0.02) K/uL Neut # (Auto) 4.56 (1.4-6.5) K/uL Lymph # (Auto) 1.67 (1.2-3.4) K/uL Sevier # (Auto) 0.76 H (0.11-0.59) K/uL Eos # (Auto) 0.24 (0-0.5) K/uL Baso # (Auto) 0.03 (0-0.2) K/uL PT 11.3 (9.0-12.0) Seconds INR 1.1 (0.9-1.1) APTT 26.5 (21.0-31.0) Seconds PTT Ratio 1.0 Sodium 137 (136-145) mmol/L Potassium 4.4 (3.5-5.1) mmol/L Chloride 103 (98-107) mmol/L Carbon Dioxide 26 (21-32) mmol/L Anion Gap 8.0 (3-11) BUN 16 (7-18) mg/dl Creatinine 1.20 (0.6-1.4) mg/dl Est Cr Clr Drug Dosing 62.4 ml/min Est GFR ( Amer) 66.7 Est GFR (Non-Af Amer) 57.6 BUN/Creatinine Ratio 13.0 (10-20) Glucose 71 (70-99) mg/dl Lactate (0.4-2.0) mmol/L Calcium 9.1 (8.5-10.1) mg/dl Total Bilirubin 0.4 (0.2-1) mg/dl AST 19 (15-37) U/L ALT 25 (12-78) U/L Alkaline Phosphatase 88 (45-117) U/L Total Protein 8.2 (6.4-8.2) gm/dl Albumin 3.4 (3.4-5.0) gm/dl Globulin 4.8 H (2.5-4.0) gm/dl Albumin/Globulin Ratio 0.7 L (0.9-2) Urine Color Urine Appearance (Clear) Urine pH (4.5-7.5) Ur Specific Bailey (1.000-1.030) Urine Protein (Negative) Urine Glucose (UA) (Negative) Urine Ketones (Negative) Urine Blood (Negative) Urine Nitrite (Negative) Urine Bilirubin (Negative) Urine Urobilinogen (Negative) Ur Leukocyte Esterase (Negative) Urine RBC (0-4) /hpf Urine WBC (0-5) /hpf Ur Epithelial Cells (0-5) /lpf Ur Renal Epithelial Cell (0-5) /lpf Urine Bacteria (Negative) RBC Casts (0) /lpf 08/15/19 08/15/19 Range/Units 23:50 23:56 WBC (4.8-10.8) K/uL RBC (4.7-6.1) M/uL Hgb (14.0-18.0) g/dL Hct (42-52) % MCV (80-100) fL MCH (25-34) pg MCHC (32-36) g/dL RDW Std Deviation (36.4-46.3) fL RDW Coeff of Federico (11.5-14.5) % Plt Count (130-400) K/uL MPV (7.4-10.4) fL Immature Gran % (Auto) % Neut % (Auto) % Lymph % (Auto) % Sevier % (Auto) % Eos % (Auto) % Baso % (Auto) % Immature Gran # (Auto) (0.00-0.02) K/uL Neut # (Auto) (1.4-6.5) K/uL Lymph # (Auto) (1.2-3.4) K/uL Sevier # (Auto) (0.11-0.59) K/uL Eos # (Auto) (0-0.5) K/uL Baso # (Auto) (0-0.2) K/uL PT (9.0-12.0) Seconds INR (0.9-1.1) APTT (21.0-31.0) Seconds PTT Ratio Sodium (136-145) mmol/L Potassium (3.5-5.1) mmol/L Chloride (98-107) mmol/L Carbon Dioxide (21-32) mmol/L Anion Gap (3-11) BUN (7-18) mg/dl Creatinine (0.6-1.4) mg/dl Est Cr Clr Drug Dosing ml/min Est GFR ( Amer) Est GFR (Non-Af Amer) BUN/Creatinine Ratio (10-20) Glucose (70-99) mg/dl Lactate 3.7 H* (0.4-2.0) mmol/L Calcium (8.5-10.1) mg/dl Total Bilirubin (0.2-1) mg/dl AST (15-37) U/L ALT (12-78) U/L Alkaline Phosphatase (45-117) U/L Total Protein (6.4-8.2) gm/dl Albumin (3.4-5.0) gm/dl Globulin (2.5-4.0) gm/dl Albumin/Globulin Ratio (0.9-2) Urine Color Red Urine Appearance Turbid A (Clear) Urine pH 5.0 (4.5-7.5) Ur Specific Bailey >= 1.030 (1.000-1.030) Urine Protein 3+ H (Negative) Urine Glucose (UA) Negative (Negative) Urine Ketones Trace H (Negative) Urine Blood 3+ H (Negative) Urine Nitrite Negative (Negative) Urine Bilirubin Negative (Negative) Urine Urobilinogen Negative (Negative) Ur Leukocyte Esterase Negative (Negative) Urine RBC >30 H (0-4) /hpf Urine WBC 10-30 H (0-5) /hpf Ur Epithelial Cells 0-5 (0-5) /lpf Ur Renal Epithelial Cell 5-10 H (0-5) /lpf Urine Bacteria 2+ H (Negative) RBC Casts 1-5 H (0) /lpf Imaging Data My Impression: Radiology results as stated below per my review and the radiologist's interpretation: XR chest No obvious pulmonary infiltrate or plural fusion. ECG Data Attestation: I personally reviewed and interpreted this ECG as follows: Indication: weakness Rate (beats per minute): 92 Rhythm: normal sinus Findings: no acute ischemic change and no ectopy Blood Pressure Blood Pressure Findings: Low blood pressure Blood Pressure Disposition: further management by hospitalist [facility] Narrative This is a 79-year-old male patient who presents to the emergency department with persistent hematuria and generalized weakness. The patient has become so weak at rehab that he is unable to participate in his therapy and he is fearful that he will fall down. The patient does have some slight anemia most likely secondary to the hematuria. He is currently taking Cipro for urinary tract infection. The patient has no significant leukocytosis but does have an elevated lactate. I discussed the case with the [facility] Hospitalist and they will evaluate for further management. Impression & Plan Weakness, Hematuria Discharge Plan Visit Data *Final* Discharge Date/Time: 08/16/19 02:33 Chief Complaint: Hematuria Stated Complaint: BLOOD IN URINE, HAS CATHETER, ED Provider: Chelsy Harley Discharge Problem: Weakness, Hematuria Patient Disposition: Admitted As Inpatient Discharge Instructions Interventions: ED Discharge Assessment Last Done: 08/16/19 02:33 Discharge Problem: Hematuria Qualifiers: Hematuria type: unspecified type Qualified Code(s): R31.9 - Hematuria, unspecified The scribe's documentation has been prepared under my direction and personally reviewed by me in its entirety. I confirm that the note above accurately reflects all work, treatment, procedures, and medical decision making performed by me.
[2019-08-16] MEDS: INSULIN ASPART 100 UNITS/ML 3 ML PEN SC SCH ×4 (06:20→21:00)
[2019-08-16] MEDS: MAGNESIUM SULFATE / D5W 1 GM/100 ML BAG IV SCH ×2 (08:31→09:55)
[2019-08-16] MEDS: METOPROLOL SUCC 25MG EXT REL TAB PO SCH ×2 (08:37→20:57)
[2019-08-16] MEDS: CIPROFLOXACIN 500 MG TAB PO SCH ×2 (08:37→20:59)
[2019-08-16] MEDS: FERROUS SULFATE 325 MG TAB PO SCH ×2 (08:38→17:47)
[2019-08-16] MEDS: BENAZEPRIL HCL 10 MG TAB PO SCH (08:38)
[2019-08-16] MEDS: FLUTICASONE/SALMETEROL 250/50 (ADVAIR) 14 PUFF/1 INHALER INH PRN (08:39)
[2019-08-16] MEDS: carBAMazepine 200 MG TABLET PO SCH ×2 (08:39→20:58)
[2019-08-16] MEDS: TAMSULOSIN HCL 0.4 MG CAP PO SCH (08:40)
[2019-08-16] MEDS: INSULIN GLARGINE SOLOSTAR 100 UNITS/ML 3 ML PEN SC SCH ×2 (08:53→21:01)
[2019-08-16 08:56] LABS: Basophils # (auto) 0.05 K/uL (0-0.2); Basophils % (auto) 0.8 %; Eosinophils # (auto) 0.27 K/uL (0-0.5); Eosinophils % (auto) 4.3 %; Hematocrit (blood only) 32.6 % (42-52); Hemoglobin 11.1 g/dL (14.0-18.0); Immature Granulocytes # (auto) 0.01 K/uL (0.00-0.02); Immature Granulocytes % (auto) 0.2 %; Lymphocytes # (auto) 1.98 K/uL (1.2-3.4); Lymphocytes % (auto) 31.3 %; Mean Corpuscular Hemoglobin 31.6 pg (25-34); Mean Corpuscular Volume 92.9 fL (80-100); Mean Platelet Volume 9.4 fL (7.4-10.4); Monocytes # (auto) 0.89 K/uL (0.11-0.59); Monocytes % (auto) 14.1 %; Neutrophils # (auto) 3.12 K/uL (1.4-6.5); Neutrophils % (auto) 49.3 %; Platelet Count 276 K/uL (130-400); RDW Coefficient of Variation 13.3 % (11.5-14.5); Red Blood Count 3.51 M/uL (4.7-6.1); White Blood Count 6.32 K/uL (4.8-10.8)
--- NOTE | 2019-08-16 09:46 | XRay Report ---
XR chest 1V portable CLINICAL HISTORY: Sepsis COMPARISON STUDY: Chest radiograph August 11, 2019. FINDINGS: Lung volumes are normal. Lungs are clear. There is no pneumothorax or pleural effusion. Car diac size is normal. Mediastinal contours are normal. There is no evidence for pulmonary edema. Incid ental note is made of multiple old, healed left rib fractures. Slight increased right basilar marking s likely reflect atelectasis. Mild elevation of the right hemidiaphragm. Cervical spine fusion is inc identally noted. IMPRESSION: No acute cardiopulmonary findings. Electronically signed by: Navneet Huynh M.D. 08/16/2019 9:44 AM
--- NOTE | 2019-08-16 09:57 | Ultrasound Report ---
RENAL ULTRASOUND CLINICAL HISTORY: hematuria, back pain COMPARISON STUDY: CT of the abdomen and pelvis August 11, 2019. TECHNIQUE: Sonography of the kidneys and the urinary bladder was performed. FINDINGS: This exam is compromised by suboptimal penetration. No hydronephrosis is identified. The ri ght kidney measures 9 cm in maximal dimension and the left measures 12.5 cm. The bladder is collapsed , containing a Guerrero catheter. Bowel wall thickening is noted. No renal calculi are identified. IMPRESSION: 1. No hydronephrosis. 2. Guerrero balloon within the bladder. Nonspecific bladder wall thickening, accentuated by underdistent ion. Urothelial lesion cannot be excluded on this exam. Electronically signed by: Navneet Huynh M.D. 08/16/2019 9:55 AM
[2019-08-16] MEDS: PHENAZOPYRIDINE HCL 100 MG TAB PO PRN (10:44)
--- NOTE | 2019-08-16 12:28 | Urology Consultation ---
Date of Consultation August 16, 2019 Assessment & Plan (1) Urinary retention: (2) Gross hematuria: A/P 79-year-old male with weakness, gross hematuria, bladder spasms. Patient stable hemoglobin and lack of ongoing bleeding or new clots argue against his gross hematuria is a significant etiology of his fatigue. He does seem to have had significant disruption to his rest due to bladder spasms but I think the catheter should remain in place for the time being. In addition to the patient's Pyridium we can add oxybutynin as needed. Belladonna and opium suppositories can also be considered should his discomfort continue. Continue with Flomax and Proscar as well. Outpatient trial of void is in place in our office this coming week -would leave this on schedule at this time. Patient's bladder is irrigated using a Nicole syringe today and 1 L of sterile saline with reproduction of his bladder spasms especially toward the end of the irrigation. This demonstrated modest amounts of old clot with no evidence of active bleeding. Outpatient appointments for trial of void, short-term voiding check and repeat cystoscopy in the longer-term are all in place. Patient and patient's sisters vocalized understanding of the treatment plan. No acute operative intervention planned by our service today. Continue care per primary service. Thank you for allowing us to participate in this patient's acute care. Please contact our service with any questions or concerns. History of Present Illness Reason for Consultation: Gross hematuria with indwelling lloyd. Attending Physician: Ella Campoverde MD History of Present Illness Patient is a comorbid 79-year-old male who I have seen several days ago for persistent issues with voiding and gross hematuria in the office. Patient underwent an office cystoscopy at that time demonstrating mobile old clot within the bladder with no active bleeding or worrisome findings save for some BPH. 26 Pakistani Lloyd was placed at the time and bladder was irrigated of a significant volume of the old clot. Patient was given a short course of prophylactic ciprofloxacin and sent home on maximal medical therapy for BPH with tamsulosin and finasteride. He reports he returned to his rehab and had continued difficulties with poor energy level and intermittent hematuria with clot passage. No irrigation of his catheter was required at the time. Patient developed difficulties with suprapubic tenderness consistent with his bladder spasms noted in the office and reports that he was unable to sleep due to this discomfort. He finally presented back to the hospital for further evaluation and was admitted. Urology consultation is sought out to assist with his care. Patient is n.p.o. per primary service orders. Hemoglobin is noted to be remained stable since the beginning of the month and the creatinine is within normal limits. CT scan imaging from earlier this week as well as current renal ultrasound are reviewed demonstrating no upper tract findings within the kidney. Images reviewed with the patient's sisters who are present in the room today. Urine in the tubing is currently clear with old blood visible in the catheter bag. He reports his aspirin is currently on hold. Allergies Allergy/AdvReac Type Severity Reaction Status Date / Time No Known Allergies Allergy Verified 08/15/19 23:01 Home Medications Home Medications Medication Instructions Recorded Confirmed Type Januvia 100 mg PO QPM 06/26/19 08/15/19 History acetaminophen-codeine 1 tab PO Q6H PRN 06/26/19 08/15/19 History atorvastatin [Lipitor] 10 mg PO HS 06/26/19 08/15/19 History benazepril [Lotensin] 10 mg PO QAM 06/26/19 08/15/19 History carbamazepine [Tegretol] 200 mg PO BID 06/26/19 08/15/19 History dicyclomine 10 mg PO BID PRN 06/26/19 08/15/19 History fluticasone propion-salmeterol 1 inh INHALATION Q12H PRN 06/26/19 08/15/19 History [Advair Diskus] glimepiride 4 mg PO QAM 06/26/19 08/15/19 History metoprolol succinate [Toprol XL] 25 mg PO BID 06/26/19 08/15/19 History omega 7-coi-[id number]-fish oil [Fish Oil] 1 cap PO QAM 06/26/19 08/15/19 History pioglitazone [Actos] 15 mg PO QAM 06/26/19 08/15/19 History ranitidine HCl 150 mg PO BID 06/26/19 08/15/19 History aspirin [Ecotrin Low Strength] 81 mg PO BID 45 Days #90 tab 07/26/19 08/15/19 Rx ferrous sulfate 325 mg PO BID 08/11/19 08/15/19 History metformin 1,000 mg PO BID 08/11/19 08/15/19 History multivitamin with minerals 1 tab PO QAM 08/11/19 08/15/19 History [Multiple Vitamin-Minerals] oxycodone 5 mg PO Q4 PRN 08/11/19 08/15/19 History tamsulosin [Flomax] 0.4 mg PO DAILY #20 cap 08/11/19 08/15/19 Rx acetaminophen 325 mg PO Q6H PRN 08/15/19 08/15/19 History acetaminophen [Tylenol] 650 mg PO Q4H PRN 08/15/19 08/15/19 History amoxicillin-pot clavulanate 1 tab PO BID 08/15/19 08/15/19 History [Augmentin] bisacodyl [Dulcolax (bisacodyl)] 10 mg RI DAILY PRN 08/15/19 08/15/19 History chlordiazepoxide HCl 10 mg PO BID 08/15/19 08/15/19 History finasteride 5 mg PO HS 08/15/19 08/15/19 History Patient History Medical History Anemia hx Anxiety BPH (benign prostatic hyperplasia) Cardiac murmur no problems per daughter. "an irregular heartbeat" Carotid artery disease Chronic kidney disease stage 2 Chronic obstructive pulmonary disease Degenerative cervical disc Degenerative disc disease Depression Diabetes mellitus, type 2 niddm GI bleed hx Hx of fracture possible jaw fracture with surgery. no difficulty opening mouth Hx of head injury 1976 Hyperlipidemia Hypertension Kidney stones hx Osteoarthritis PAC (premature atrial contraction) per pcp documentation PAD (peripheral artery disease) Peptic ulcer disease hx Poor historian Schatzki's ring per pcp documentation Seizure r/t head injury (1976) patient does not know when his last seizure was, states it was at least for 38 years. follows with PCP. Spinal stenosis Surgical History Fusion of spine Full ROM H/O elbow surgery right H/O neck surgery with revision to screw in his neck H/O of nasal cauterization History of angioplasty of peripheral vessel bilateral leg History of arthroscopy of right knee History of colonoscopy History of discectomy cervical History of esophagogastroduodenoscopy (EGD) History of tooth extraction History of total knee replacement left S/P epidural steroid injection Family History Father Family history of diabetes mellitus Sister FHx: liver cancer Social History Preferred Language: Irish Communication Ability: Effective Road Conductor Required: No Beliefs That Will Affect Care: None Current Living Situation: Alone Other Information That Helps Us Care for You: No Feels Safe at Home: Yes Safety Concerns: Feels Safe At This Time Smoking Status: Former smoker Tobacco Type: cigarettes ; Smoking End Date: 30 years ago ; Second Hand Exposure: No ; Hx Alcohol Use: Yes Alcohol type: wine Hx Substance Use: No Review of Systems Constitutional: + fatigue and + weakness; no fever and no chills Eyes: no diplopia Ear, Nose, Mouth, Throat: no ear trauma Respiratory: no hemoptysis Cardiovascular: + chest pain (Intermittent, associated with bladder spasms per patient) Gastrointestinal: + abdominal pain; no constipation Genitourinary: + difficulty urinating and + hematuria Musculoskeletal: + back pain Integumentary: no acne and no boil Neurologic: no paralysis Psychiatric: no hopelessness Endocrine: + fatigue Hematologic / Lymphatic: + easy bleeding and + coagulopathy Allergy / Immunological: no tongue swelling Physical Exam Constitutional: + ill appearing and + obese; no acute distress Eyes: eyes not dysmorphic ENMT: Ears: no external ear abnormality Neck: trachea midline; no anterior neck swelling Respiratory: no respiratory distress and does not use accessory muscles Cardiovascular: Vessels: radial pulses present Gastrointestinal (Abdomen): Inspection/Auscultation: abdomen not distended Percussion/Palpation: abdomen soft; abdomen nontender Musculoskeletal: Head/Neck/Chest: normocephalic and neck supple Skin: normal turgor Neurologic: awake; not obtunded Psychiatric: Orientation: oriented x 3 Genitourinary: no penis abnormality Lymphatic: no lymphadenopathy Results & Data Vital Signs (Past 12 Hours) Vital Signs Temp Pulse Pulse Resp BP Pulse Ox 08/16/19 11:53 36.7 C 86 20 104/65 91 08/16/19 08:00 36.6 C 95 H 20 128/75 93 08/16/19 04:57 89 08/16/19 03:32 37.0 C 88 18 158/80 H 95 08/16/19 01:27 90 18 113/79 96 Laboratory Results Laboratory Results - last 48 hr 08/15/19 08/15/19 08/15/19 23:40 23:40 23:40 WBC 7.27 RBC 3.89 L Hgb 12.3 L Hct 36.3 L MCV 93.3 MCH 31.6 MCHC 33.9 RDW Std Deviation 45.2 RDW Coeff of Federico 13.2 Plt Count 321 MPV 9.9 Immature Gran % (Auto) 0.1 Neut % (Auto) 62.7 Lymph % (Auto) 23.0 [place] % (Auto) 10.5 Eos % (Auto) 3.3 Baso % (Auto) 0.4 Immature Gran # (Auto) 0.01 Neut # (Auto) 4.56 Lymph # (Auto) 1.67 [place] # (Auto) 0.76 H Eos # (Auto) 0.24 Baso # (Auto) 0.03 PT 11.3 INR 1.1 APTT 26.5 PTT Ratio 1.0 Sodium 137 Potassium 4.4 Chloride 103 Carbon Dioxide 26 Anion Gap 8.0 BUN 16 Creatinine 1.20 Est Cr Clr Drug Dosing 62.4 Est GFR ( Amer) 66.7 Est GFR (Non-Af Amer) 57.6 BUN/Creatinine Ratio 13.0 Glucose 71 POC Glucose Lactate Calcium 9.1 Phosphorus Magnesium Total Bilirubin 0.4 AST 19 ALT 25 Alkaline Phosphatase 88 Total Protein 8.2 Albumin 3.4 Globulin 4.8 H Albumin/Globulin Ratio 0.7 L Urine Color Urine Appearance Urine pH Ur Specific [place] Urine Protein Urine Glucose (UA) Urine Ketones Urine Blood Urine Nitrite Urine Bilirubin Urine Urobilinogen Ur Leukocyte Esterase Urine RBC Urine WBC Ur Epithelial Cells Ur Renal Epithelial Cell Urine Bacteria RBC Casts Nasal Screen MRSA (PCR) 08/15/19 08/15/19 08/16/19 23:50 23:56 03:12 WBC 7.37 RBC 3.51 L Hgb 11.0 L Hct 33.2 L MCV 94.6 MCH 31.3 MCHC 33.1 RDW Std Deviation 45.9 RDW Coeff of Federico 13.2 Plt Count 282 MPV 9.8 Immature Gran % (Auto) 0.1 Neut % (Auto) 58.9 Lymph % (Auto) 24.6 [place] % (Auto) 12.6 Eos % (Auto) 3.3 Baso % (Auto) 0.5 Immature Gran # (Auto) 0.01 Neut # (Auto) 4.34 Lymph # (Auto) 1.81 [place] # (Auto) 0.93 H Eos # (Auto) 0.24 Baso # (Auto) 0.04 PT INR APTT PTT Ratio Sodium Potassium Chloride Carbon Dioxide Anion Gap BUN Creatinine Est Cr Clr Drug Dosing Est GFR ( Amer) Est GFR (Non-Af Amer) BUN/Creatinine Ratio Glucose POC Glucose Lactate 3.7 H* Calcium Phosphorus Magnesium Total Bilirubin AST ALT Alkaline Phosphatase Total Protein Albumin Globulin Albumin/Globulin Ratio Urine Color Red Urine Appearance Turbid A Urine pH 5.0 Ur Specific [place] >= 1.030 Urine Protein 3+ H Urine Glucose (UA) Negative Urine Ketones Trace H Urine Blood 3+ H Urine Nitrite Negative Urine Bilirubin Negative Urine Urobilinogen Negative Ur Leukocyte Esterase Negative Urine RBC >30 H Urine WBC 10-30 H Ur Epithelial Cells 0-5 Ur Renal Epithelial Cell 5-10 H Urine Bacteria 2+ H RBC Casts 1-5 H Nasal Screen MRSA (PCR) 08/16/19 08/16/19 08/16/19 03:12 04:30 06:17 WBC RBC Hgb Hct MCV MCH MCHC RDW Std Deviation RDW Coeff of Federico Plt Count MPV Immature Gran % (Auto) Neut % (Auto) Lymph % (Auto) [place] % (Auto) Eos % (Auto) Baso % (Auto) Immature Gran # (Auto) Neut # (Auto) Lymph # (Auto) [place] # (Auto) Eos # (Auto) Baso # (Auto) PT INR APTT PTT Ratio Sodium Potassium Chloride Carbon Dioxide Anion Gap BUN Creatinine Est Cr Clr Drug Dosing Est GFR ( Amer) Est GFR (Non-Af Amer) BUN/Creatinine Ratio Glucose POC Glucose 101 H Lactate Calcium Phosphorus 3.1 Magnesium 1.4 L Total Bilirubin AST ALT Alkaline Phosphatase Total Protein Albumin Globulin Albumin/Globulin Ratio Urine Color Urine Appearance Urine pH Ur Specific [place] Urine Protein Urine Glucose (UA) Urine Ketones Urine Blood Urine Nitrite Urine Bilirubin Urine Urobilinogen Ur Leukocyte Esterase Urine RBC Urine WBC Ur Epithelial Cells Ur Renal Epithelial Cell Urine Bacteria RBC Casts Nasal Screen MRSA (PCR) Negative 08/16/19 08/16/19 08/16/19 08:47 08:48 12:02 WBC 6.32 RBC 3.51 L Hgb 11.1 L Hct 32.6 L MCV 92.9 MCH 31.6 MCHC 34.0 RDW Std Deviation 45.0 RDW Coeff of Federico 13.3 Plt Count 276 MPV 9.4 Immature Gran % (Auto) 0.2 Neut % (Auto) 49.3 Lymph % (Auto) 31.3 [place] % (Auto) 14.1 Eos % (Auto) 4.3 Baso % (Auto) 0.8 Immature Gran # (Auto) 0.01 Neut # (Auto) 3.12 Lymph # (Auto) 1.98 [place] # (Auto) 0.89 H Eos # (Auto) 0.27 Baso # (Auto) 0.05 PT INR APTT PTT Ratio Sodium Potassium Chloride Carbon Dioxide Anion Gap BUN Creatinine Est Cr Clr Drug Dosing Est GFR ( Amer) Est GFR (Non-Af Amer) BUN/Creatinine Ratio Glucose POC Glucose 120 H Lactate 1.2 Calcium Phosphorus Magnesium Total Bilirubin AST ALT Alkaline Phosphatase Total Protein Albumin Globulin Albumin/Globulin Ratio Urine Color Urine Appearance Urine pH Ur Specific [place] Urine Protein Urine Glucose (UA) Urine Ketones Urine Blood Urine Nitrite Urine Bilirubin Urine Urobilinogen Ur Leukocyte Esterase Urine RBC Urine WBC Ur Epithelial Cells Ur Renal Epithelial Cell Urine Bacteria RBC Casts Nasal Screen MRSA (PCR) PG Care Time/CCT Total # of Minutes Spent Total Time Spent with Patient: Total time spent is greater than 50% in coordination of care (as documented) at patient's floor/unit and/or counseling patient:
--- NOTE | 2019-08-16 15:29 | Hospitalist Progress Note ---
Date of Service August 16, 2019 Assessment & Plan (1) Hematuria: * Patient with ongoing hematuria, suprapubic and left flank discomfort. Hemodynamically stable. Lloyd in place with dark bloody output, no clots presently but family reports clots prior to draining bag. Patient has been seen by Urology on 08/13, had cystoscopy - +hematuria with clots at that time, no clear bleeding source identified. ?hemorrhagic uti vs renal source. Distant hx kidney stones 2006- Dr. Prather at [facility]. * Admit to medical floor with telemetry * Urine microscopy - ?renal vs bladder source of bleeding, with RBC casts * Renal US --> no hydronephrosis, nonspecific bladder wall thickening, and right kidney smaller at 9 cm * Urology consultation appreciated * Continue Flomax, Finasteride * Bladder irrigation as needed * Monitor strict I/O * H/h on admission 11.0/33.2-- repeat 11.1/32.6 -- continue to monitor * Hold Aspirin * Lactic down to 1.2 from 3.7 * Mag- 1.4 - given 2g IV Mag with repeat 1.8 - repeat in AM * Morphine and Percocet PRN pain * Bowel regimen with Dulcolax, Colace, Miralax PRN * Nephrology Consultation in AM * Request records from Dr Gipson (2) Abdominal pain: * Patient with lower abdominal discomfort associated with urination, also with left flank pain * Morphine and Percocet PRN * Bowel regimen * Pyridium * Oxybutynin added today (3) Benign prostatic hyperplasia: * Chronic. Stable * Continue Flomax and Finasteride * Urology consultation as above (4) Seizure: * Chronic. Stable. Patient with no recent seizure activity * Continue Tegretol (5) Hypertension: * Blood pressure stable at present * Continue Toprol XL * Continue Benazepril * Continue to monitor (6) Dyslipidemia: * Chronic. Stable * Continue Lipitor (7) Diabetes: * Chronic. Well controlled on oral agents with HgbA1C 6.9% in 06/2019 * Hold Glimepiride, Januvia, Metformin and Pioglitazone inpatient * Lantus BID and ISS * Continue to monitor (8) PAD (peripheral artery disease): * Chronic. Stable * Holding ASA in setting of bleed * Continue statin (9) COPD (chronic obstructive pulmonary disease): * Stable respiratory status. No wheeze * Continue Advair (10) PUD (peptic ulcer disease): * Chronic. No active bleeding. Patient had a massive GIB in the past and told that he had a "nervous stomach" 20-25 years ago -- "received > 100 units of blood". He was placed on Librium and Dicyclomine and has continued on it ever since * Continue Ranitidine. * Continue Librium and Dicyclomine (11) DVT prophylaxis: * SCDs Disposition-remain hospitalized overnight and will discharge to home when hematuria is improved and after nephrology evaluation Supervising Physician Co-Signing Physician Notes PA Supervision Note: I did not personally see or examine the patient today, but I verified all tatum points of DENAE Biggs's assessment and plan with the following exceptions/additions: None Subjective Patient evaluated this evening. He continues to have burning with urination. He states that Dr. Tim was in earlier and irrigated his lloyd, which had "lots of clots". He states this all began after surgery for his left knee earlier this month. He states he came from rehab last night after both a positive and negative FOCB test as well as suprapubic pain and burning. He states he has had some low back pain. History of two previous back surgeries. He states the pain wraps around from his back to his left lower quadrant. He denies any history of crohns, ulcerative colitis or diverticulitis. He states he had a colonoscopy four years ago which was benign. He does state he has had some difficulty swallowing and has been told to use "minced pieces" and lots of gravy. Review of Systems Review of Systems: +back pain +suprapubic pain after urination +dysuria +fatigue +weakness +palpitations +fever, chills Physical Exam Constitutional: WD/WN, vitals as above no acute distress Neck: trachea midline, no thyromegaly Respiratory: normal respiratory effort, lungs clear to auscultation Cardiovascular: RRR, no murmur, no edema Gastrointestinal (Abdomen): Inspection/Auscultation: abdomen normal to inspection and normal bowel sounds; abdomen not distended Right CVA tenderness LLQ tender to palpation Suprapubic tenderness Skin: R lower leg brusing Psychiatric: A+Ox3, euthymic affect Genitourinary: Lloyd catheter in place blood tinged urine noted in lloyd bag Results & Data Vital Signs (Past 12 Hours) Vital Signs Temp Pulse Pulse Resp BP Pulse Ox 08/16/19 14:55 36.8 C 90 20 129/76 92 08/16/19 11:53 36.7 C 86 20 104/65 91 08/16/19 08:00 36.6 C 95 H 20 128/75 93 08/16/19 04:57 89 08/16/19 03:32 37.0 C 88 18 158/80 H 95 Laboratory Results 08/16/19 08/16/19 08/16/19 Range/Units 14:02 12:02 08:48 WBC (4.8-10.8) K/uL RBC (4.7-6.1) M/uL Hgb (14.0-18.0) g/dL Hct (42-52) % MCV (80-100) fL MCH (25-34) pg MCHC (32-36) g/dL RDW Std Deviation (36.4-46.3) fL RDW Coeff of Federico (11.5-14.5) % Plt Count (130-400) K/uL MPV (7.4-10.4) fL Immature Gran % (Auto) % Neut % (Auto) % Lymph % (Auto) % [place] % (Auto) % Eos % (Auto) % Baso % (Auto) % Immature Gran # (Auto) (0.00-0.02) K/uL Neut # (Auto) (1.4-6.5) K/uL Lymph # (Auto) (1.2-3.4) K/uL [place] # (Auto) (0.11-0.59) K/uL Eos # (Auto) (0-0.5) K/uL Baso # (Auto) (0-0.2) K/uL PT (9.0-12.0) Seconds INR (0.9-1.1) APTT (21.0-31.0) Seconds PTT Ratio Sodium (136-145) mmol/L Potassium (3.5-5.1) mmol/L Chloride (98-107) mmol/L Carbon Dioxide (21-32) mmol/L Anion Gap (3-11) BUN (7-18) mg/dl Creatinine (0.6-1.4) mg/dl Est Cr Clr Drug Dosing ml/min Est GFR ( Amer) Est GFR (Non-Af Amer) BUN/Creatinine Ratio (10-20) Glucose (70-99) mg/dl POC Glucose 120 H (70-99) Lactate 1.2 (0.4-2.0) mmol/L Calcium (8.5-10.1) mg/dl Phosphorus (2.5-4.9) mg/dl Magnesium 1.8 (1.8-2.4) mg/dl Total Bilirubin (0.2-1) mg/dl AST (15-37) U/L ALT (12-78) U/L Alkaline Phosphatase (45-117) U/L Total Protein (6.4-8.2) gm/dl Albumin (3.4-5.0) gm/dl Globulin (2.5-4.0) gm/dl Albumin/Globulin Ratio (0.9-2) Urine Color Urine Appearance (Clear) Urine pH (4.5-7.5) Ur Specific [place] (1.000-1.030) Urine Protein (Negative) Urine Glucose (UA) (Negative) Urine Ketones (Negative) Urine Blood (Negative) Urine Nitrite (Negative) Urine Bilirubin (Negative) Urine Urobilinogen (Negative) Ur Leukocyte Esterase (Negative) Urine RBC (0-4) /hpf Urine WBC (0-5) /hpf Ur Epithelial Cells (0-5) /lpf Ur Renal Epithelial Cell (0-5) /lpf Urine Bacteria (Negative) RBC Casts (0) /lpf Nasal Screen MRSA (PCR) (Negative) 08/16/19 08/16/19 08/16/19 Range/Units 08:47 06:17 04:30 WBC 6.32 (4.8-10.8) K/uL RBC 3.51 L (4.7-6.1) M/uL Hgb 11.1 L (14.0-18.0) g/dL Hct 32.6 L (42-52) % MCV 92.9 (80-100) fL MCH 31.6 (25-34) pg MCHC 34.0 (32-36) g/dL RDW Std Deviation 45.0 (36.4-46.3) fL RDW Coeff of Federico 13.3 (11.5-14.5) % Plt Count 276 (130-400) K/uL MPV 9.4 (7.4-10.4) fL Immature Gran % (Auto) 0.2 % Neut % (Auto) 49.3 % Lymph % (Auto) 31.3 % [place] % (Auto) 14.1 % Eos % (Auto) 4.3 % Baso % (Auto) 0.8 % Immature Gran # (Auto) 0.01 (0.00-0.02) K/uL Neut # (Auto) 3.12 (1.4-6.5) K/uL Lymph # (Auto) 1.98 (1.2-3.4) K/uL [place] # (Auto) 0.89 H (0.11-0.59) K/uL Eos # (Auto) 0.27 (0-0.5) K/uL Baso # (Auto) 0.05 (0-0.2) K/uL PT (9.0-12.0) Seconds INR (0.9-1.1) APTT (21.0-31.0) Seconds PTT Ratio Sodium (136-145) mmol/L Potassium (3.5-5.1) mmol/L Chloride (98-107) mmol/L Carbon Dioxide (21-32) mmol/L Anion Gap (3-11) BUN (7-18) mg/dl Creatinine (0.6-1.4) mg/dl Est Cr Clr Drug Dosing ml/min Est GFR ( Amer) Est GFR (Non-Af Amer) BUN/Creatinine Ratio (10-20) Glucose (70-99) mg/dl POC Glucose 101 H (70-99) Lactate (0.4-2.0) mmol/L Calcium (8.5-10.1) mg/dl Phosphorus (2.5-4.9) mg/dl Magnesium (1.8-2.4) mg/dl Total Bilirubin (0.2-1) mg/dl AST (15-37) U/L ALT (12-78) U/L Alkaline Phosphatase (45-117) U/L Total Protein (6.4-8.2) gm/dl Albumin (3.4-5.0) gm/dl Globulin (2.5-4.0) gm/dl Albumin/Globulin Ratio (0.9-2) Urine Color Urine Appearance (Clear) Urine pH (4.5-7.5) Ur Specific [place] (1.000-1.030) Urine Protein (Negative) Urine Glucose (UA) (Negative) Urine Ketones (Negative) Urine Blood (Negative) Urine Nitrite (Negative) Urine Bilirubin (Negative) Urine Urobilinogen (Negative) Ur Leukocyte Esterase (Negative) Urine RBC (0-4) /hpf Urine WBC (0-5) /hpf Ur Epithelial Cells (0-5) /lpf Ur Renal Epithelial Cell (0-5) /lpf Urine Bacteria (Negative) RBC Casts (0) /lpf Nasal Screen MRSA (PCR) Negative (Negative) 08/16/19 08/16/19 08/15/19 Range/Units 03:12 03:12 23:56 WBC 7.37 (4.8-10.8) K/uL RBC 3.51 L (4.7-6.1) M/uL Hgb 11.0 L (14.0-18.0) g/dL Hct 33.2 L (42-52) % MCV 94.6 (80-100) fL MCH 31.3 (25-34) pg MCHC 33.1 (32-36) g/dL RDW Std Deviation 45.9 (36.4-46.3) fL RDW Coeff of Federico 13.2 (11.5-14.5) % Plt Count 282 (130-400) K/uL MPV 9.8 (7.4-10.4) fL Immature Gran % (Auto) 0.1 % Neut % (Auto) 58.9 % Lymph % (Auto) 24.6 % [place] % (Auto) 12.6 % Eos % (Auto) 3.3 % Baso % (Auto) 0.5 % Immature Gran # (Auto) 0.01 (0.00-0.02) K/uL Neut # (Auto) 4.34 (1.4-6.5) K/uL Lymph # (Auto) 1.81 (1.2-3.4) K/uL [place] # (Auto) 0.93 H (0.11-0.59) K/uL Eos # (Auto) 0.24 (0-0.5) K/uL Baso # (Auto) 0.04 (0-0.2) K/uL PT (9.0-12.0) Seconds INR (0.9-1.1) APTT (21.0-31.0) Seconds PTT Ratio Sodium (136-145) mmol/L Potassium (3.5-5.1) mmol/L Chloride (98-107) mmol/L Carbon Dioxide (21-32) mmol/L Anion Gap (3-11) BUN (7-18) mg/dl Creatinine (0.6-1.4) mg/dl Est Cr Clr Drug Dosing ml/min Est GFR ( Amer) Est GFR (Non-Af Amer) BUN/Creatinine Ratio (10-20) Glucose (70-99) mg/dl POC Glucose (70-99) Lactate (0.4-2.0) mmol/L Calcium (8.5-10.1) mg/dl Phosphorus 3.1 (2.5-4.9) mg/dl Magnesium 1.4 L (1.8-2.4) mg/dl Total Bilirubin (0.2-1) mg/dl AST (15-37) U/L ALT (12-78) U/L Alkaline Phosphatase (45-117) U/L Total Protein (6.4-8.2) gm/dl Albumin (3.4-5.0) gm/dl Globulin (2.5-4.0) gm/dl Albumin/Globulin Ratio (0.9-2) Urine Color Red Urine Appearance Turbid A (Clear) Urine pH 5.0 (4.5-7.5) Ur Specific [place] >= 1.030 (1.000-1.030) Urine Protein 3+ H (Negative) Urine Glucose (UA) Negative (Negative) Urine Ketones Trace H (Negative) Urine Blood 3+ H (Negative) Urine Nitrite Negative (Negative) Urine Bilirubin Negative (Negative) Urine Urobilinogen Negative (Negative) Ur Leukocyte Esterase Negative (Negative) Urine RBC >30 H (0-4) /hpf Urine WBC 10-30 H (0-5) /hpf Ur Epithelial Cells 0-5 (0-5) /lpf Ur Renal Epithelial Cell 5-10 H (0-5) /lpf Urine Bacteria 2+ H (Negative) RBC Casts 1-5 H (0) /lpf Nasal Screen MRSA (PCR) (Negative) 08/15/19 08/15/19 08/15/19 Range/Units 23:50 23:40 23:40 WBC (4.8-10.8) K/uL RBC (4.7-6.1) M/uL Hgb (14.0-18.0) g/dL Hct (42-52) % MCV (80-100) fL MCH (25-34) pg MCHC (32-36) g/dL RDW Std Deviation (36.4-46.3) fL RDW Coeff of Federico (11.5-14.5) % Plt Count (130-400) K/uL MPV (7.4-10.4) fL Immature Gran % (Auto) % Neut % (Auto) % Lymph % (Auto) % [place] % (Auto) % Eos % (Auto) % Baso % (Auto) % Immature Gran # (Auto) (0.00-0.02) K/uL Neut # (Auto) (1.4-6.5) K/uL Lymph # (Auto) (1.2-3.4) K/uL [place] # (Auto) (0.11-0.59) K/uL Eos # (Auto) (0-0.5) K/uL Baso # (Auto) (0-0.2) K/uL PT 11.3 (9.0-12.0) Seconds INR 1.1 (0.9-1.1) APTT 26.5 (21.0-31.0) Seconds PTT Ratio 1.0 Sodium 137 (136-145) mmol/L Potassium 4.4 (3.5-5.1) mmol/L Chloride 103 (98-107) mmol/L Carbon Dioxide 26 (21-32) mmol/L Anion Gap 8.0 (3-11) BUN 16 (7-18) mg/dl Creatinine 1.20 (0.6-1.4) mg/dl Est Cr Clr Drug Dosing 62.4 ml/min Est GFR ( Amer) 66.7 Est GFR (Non-Af Amer) 57.6 BUN/Creatinine Ratio 13.0 (10-20) Glucose 71 (70-99) mg/dl POC Glucose (70-99) Lactate 3.7 H* (0.4-2.0) mmol/L Calcium 9.1 (8.5-10.1) mg/dl Phosphorus (2.5-4.9) mg/dl Magnesium (1.8-2.4) mg/dl Total Bilirubin 0.4 (0.2-1) mg/dl AST 19 (15-37) U/L ALT 25 (12-78) U/L Alkaline Phosphatase 88 (45-117) U/L Total Protein 8.2 (6.4-8.2) gm/dl Albumin 3.4 (3.4-5.0) gm/dl Globulin 4.8 H (2.5-4.0) gm/dl Albumin/Globulin Ratio 0.7 L (0.9-2) Urine Color Urine Appearance (Clear) Urine pH (4.5-7.5) Ur Specific [place] (1.000-1.030) Urine Protein (Negative) Urine Glucose (UA) (Negative) Urine Ketones (Negative) Urine Blood (Negative) Urine Nitrite (Negative) Urine Bilirubin (Negative) Urine Urobilinogen (Negative) Ur Leukocyte Esterase (Negative) Urine RBC (0-4) /hpf Urine WBC (0-5) /hpf Ur Epithelial Cells (0-5) /lpf Ur Renal Epithelial Cell (0-5) /lpf Urine Bacteria (Negative) RBC Casts (0) /lpf Nasal Screen MRSA (PCR) (Negative) 08/15/19 Range/Units 23:40 WBC 7.27 (4.8-10.8) K/uL RBC 3.89 L (4.7-6.1) M/uL Hgb 12.3 L (14.0-18.0) g/dL Hct 36.3 L (42-52) % MCV 93.3 (80-100) fL MCH 31.6 (25-34) pg MCHC 33.9 (32-36) g/dL RDW Std Deviation 45.2 (36.4-46.3) fL RDW Coeff of Federico 13.2 (11.5-14.5) % Plt Count 321 (130-400) K/uL MPV 9.9 (7.4-10.4) fL Immature Gran % (Auto) 0.1 % Neut % (Auto) 62.7 % Lymph % (Auto) 23.0 % [place] % (Auto) 10.5 % Eos % (Auto) 3.3 % Baso % (Auto) 0.4 % Immature Gran # (Auto) 0.01 (0.00-0.02) K/uL Neut # (Auto) 4.56 (1.4-6.5) K/uL Lymph # (Auto) 1.67 (1.2-3.4) K/uL [place] # (Auto) 0.76 H (0.11-0.59) K/uL Eos # (Auto) 0.24 (0-0.5) K/uL Baso # (Auto) 0.03 (0-0.2) K/uL PT (9.0-12.0) Seconds INR (0.9-1.1) APTT (21.0-31.0) Seconds PTT Ratio Sodium (136-145) mmol/L Potassium (3.5-5.1) mmol/L Chloride (98-107) mmol/L Carbon Dioxide (21-32) mmol/L Anion Gap (3-11) BUN (7-18) mg/dl Creatinine (0.6-1.4) mg/dl Est Cr Clr Drug Dosing ml/min Est GFR ( Amer) Est GFR (Non-Af Amer) BUN/Creatinine Ratio (10-20) Glucose (70-99) mg/dl POC Glucose (70-99) Lactate (0.4-2.0) mmol/L Calcium (8.5-10.1) mg/dl Phosphorus (2.5-4.9) mg/dl Magnesium (1.8-2.4) mg/dl Total Bilirubin (0.2-1) mg/dl AST (15-37) U/L ALT (12-78) U/L Alkaline Phosphatase (45-117) U/L Total Protein (6.4-8.2) gm/dl Albumin (3.4-5.0) gm/dl Globulin (2.5-4.0) gm/dl Albumin/Globulin Ratio (0.9-2) Urine Color Urine Appearance (Clear) Urine pH (4.5-7.5) Ur Specific [place] (1.000-1.030) Urine Protein (Negative) Urine Glucose (UA) (Negative) Urine Ketones (Negative) Urine Blood (Negative) Urine Nitrite (Negative) Urine Bilirubin (Negative) Urine Urobilinogen (Negative) Ur Leukocyte Esterase (Negative) Urine RBC (0-4) /hpf Urine WBC (0-5) /hpf Ur Epithelial Cells (0-5) /lpf Ur Renal Epithelial Cell (0-5) /lpf Urine Bacteria (Negative) RBC Casts (0) /lpf Nasal Screen MRSA (PCR) (Negative) Diagnostic Findings RENAL ULTRASOUND CLINICAL HISTORY: hematuria, back pain COMPARISON STUDY: CT of the abdomen and pelvis August 11, 2019. TECHNIQUE: Sonography of the kidneys and the urinary bladder was performed. FINDINGS: This exam is compromised by suboptimal penetration. No hydronephrosis is identified. The right kidney measures 9 cm in maximal dimension and the left measures 12.5 cm. The bladder is collapsed, containing a Lloyd catheter. Bowel wall thickening is noted. No renal calculi are identified. IMPRESSION: 1. No hydronephrosis. 2. Lloyd balloon within the bladder. Nonspecific bladder wall thickening, accentuated by underdistention. Urothelial lesion cannot be excluded on this ex am. PG Care Time/CCT Total # of Minutes Spent Total Time Spent with Patient: Total time spent is greater than 50% in coordination of care (as documented) at patient's floor/unit and/or counseling patient: (1) Benign prostatic hyperplasia Lower urinary tract symptom detail: straining on urination Lower urinary tract symptom presence: symptoms present Qualified Code(s): N40.1 - Benign prostatic hyperplasia with lower urinary tract symptoms; R39.16 - Straining to void (2) Hematuria Hematuria type: gross Qualified Code(s): R31.0 - Gross hematuria (3) Diabetes Diabetes mellitus complication status: without complication Diabetes mellitus 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
[2019-08-16 19:14] LABS: Basophils # (auto) 0.04 K/uL (0-0.2); Basophils % (auto) 0.6 %; Eosinophils # (auto) 0.21 K/uL (0-0.5); Eosinophils % (auto) 3.4 %; Hematocrit (blood only) 33.4 % (42-52); Hemoglobin 11.2 g/dL (14.0-18.0); Lymphocytes # (auto) 1.26 K/uL (1.2-3.4); Lymphocytes % (auto) 20.3 %; Mean Corpuscular Hemoglobin 31.5 pg (25-34); Mean Corpuscular Hgb Conc 33.5 g/dL (32-36); Mean Corpuscular Volume 94.1 fL (80-100); Mean Platelet Volume 10.2 fL (7.4-10.4); Monocytes # (auto) 0.69 K/uL (0.11-0.59); Monocytes % (auto) 11.1 %; Neutrophils # (auto) 4.02 K/uL (1.4-6.5); Neutrophils % (auto) 64.6 %; Platelet Count 271 K/uL (130-400); RDW Coefficient of Variation 13.3 % (11.5-14.5); Red Blood Count 3.55 M/uL (4.7-6.1); White Blood Count 6.22 K/uL (4.8-10.8)
[2019-08-16] MEDS ORDERED: Nursing to Pharmacy Communication ONE (20:35)
[2019-08-16] MEDS: FINASTERIDE 5 MG TAB PO SCH (20:57)
[2019-08-16] MEDS: ATORVASTATIN 10 MG TAB PO SCH (20:58)
[2019-08-16] MEDS: OXYBUTYNIN CHLORIDE 5 MG TAB PO PRN (21:33)
[2019-08-17 03:16] LABS: Basophils # (auto) 0.04 K/uL (0-0.2); Basophils % (auto) 0.6 %; Eosinophils # (auto) 0.25 K/uL (0-0.5); Eosinophils % (auto) 3.7 %; Hematocrit (blood only) 31.7 % (42-52); Hemoglobin 10.7 g/dL (14.0-18.0); Immature Granulocytes # (auto) 0.01 K/uL (0.00-0.02); Immature Granulocytes % (auto) 0.1 %; Lymphocytes # (auto) 1.86 K/uL (1.2-3.4); Lymphocytes % (auto) 27.6 %; Mean Corpuscular Hemoglobin 31.3 pg (25-34); Mean Corpuscular Hgb Conc 33.8 g/dL (32-36); Mean Corpuscular Volume 92.7 fL (80-100); Mean Platelet Volume 9.6 fL (7.4-10.4); Monocytes # (auto) 0.89 K/uL (0.11-0.59); Monocytes % (auto) 13.2 %; Neutrophils # (auto) 3.68 K/uL (1.4-6.5); Neutrophils % (auto) 54.8 %; Platelet Count 263 K/uL (130-400); RDW Coefficient of Variation 13.2 % (11.5-14.5); RDW Standard Deviation 44.7 fL (36.4-46.3); Red Blood Count 3.42 M/uL (4.7-6.1); White Blood Count 6.73 K/uL (4.8-10.8)
[2019-08-17 03:35] LABS: BUN Creatinine Ratio 14.3 (10-20); Calcium 8.3 mg/dl (8.5-10.1); Creatinine Clr Calc Pharmacy 84.8 ml/min; Est GFR (African American) 94.9; Est GFR (Non-African American) 81.9; Magnesium 1.6 mg/dl (1.8-2.4); Potassium 3.9 mmol/L (3.5-5.1)
[2019-08-17] MEDS ORDERED: MAGNESIUM SULFATE / D5W 1 GM/100 ML BAG IV ONE (07:30)
--- NOTE | 2019-08-17 08:25 | Hospitalist Progress Note ---
Date of Service August 17, 2019 Assessment & Plan (1) Hematuria: * Patient presented with ongoing hematuria, suprapubic and left flank discomfort since lloyd placement following L TKA 07/25/19. Hemodynamically stable. Lloyd in place initially with dark bloody output, no clots presently but family reports clots prior to draining bag. Patient has been seen by Urology on 08/13, had cystoscopy - +hematuria with clots at that time, no clear bleeding source identified. ?hemorrhagic uti vs renal source. Distant hx kidney stones 2006- Dr. Prather at [facility]. Lactic 3.7 on admission--repeat 1.7. * Gross hematuria has now pretty much completely resolved * continues on telemetry * Urine microscopy - ?renal vs bladder source of bleeding, with RBC casts--> Nephrology does not think he has an acute GN * Renal US --> no hydronephrosis, nonspecific bladder wall thickening, and right kidney smaller at 9 cm * Urology consultation appreciated -- initiated oxybuytnin, pyridium which is improving his spasms -- Urology to re-evaluate in AM for consideration of trial void-recommends holding oxybutynin prior to doing so to avoid retention * Continue Flomax, Finasteride * is on empiric Cipro however all cultures are negative and can likely stop this upon discharge unless Urology wants him to stay on it longer * Bladder irrigation as needed * H/h on admission 11.0/33.2-- improved to 11.5/33.3 today * Nephrology Consult- appreciate input -- ? IgA nephropathy but not acute GN * Requested records from Dr Gipson his primary [place] [facility] * Morphine and Percocet PRN pain * Bowel regimen with Dulcolax, Colace, Miralax PRN (2) Abdominal pain: * Improving- patient with decreased abdominal pain/dysuria * Patient presented with lower abdominal discomfort associated with urination, also with left flank pain * Morphine and Percocet PRN * Bowel regimen * Pyridium * Oxybutynin (3) Benign prostatic hyperplasia: * Chronic. Stable * Continue Flomax and Finasteride * Urology consultation as above (4) Seizure: * Chronic. Stable. Patient with no recent seizure activity * Continue Tegretol (5) Hypertension: * Blood pressure stable at present * Continue Toprol XL * Continue Benazepril * Continue to monitor (6) Dyslipidemia: * Chronic. Stable * Continue Lipitor (7) Diabetes: * Chronic. Well controlled on oral agents with HgbA1C 6.9% in 06/2019 * with some hyperglycemia here mostly in evening * Hold Glimepiride, Januvia, Metformin and Pioglitazone inpatient * continue Lantus BID and ISS but will decrease CF to 35 and lower CR to 1:12 * Continue to monitor (8) PAD (peripheral artery disease): * Chronic. Stable * Continue atorvastatin 10mg * Holding ASA in setting of bleed -- given post operatively for L TKA (9) COPD (chronic obstructive pulmonary disease): * Stable respiratory status. No wheeze * Continue Advair (10) PUD (peptic ulcer disease): * Chronic. No active bleeding. Patient had a massive GIB in the past and told that he had a "nervous stomach" 20-25 years ago -- "received > 100 units of blood". He was placed on Librium and Dicyclomine and has continued on it ever since * Continue Ranitidine. * Continue Librium and Dicyclomine (11) DVT prophylaxis: * oralia Dorman Disposition-patient to be re-evaluated by urology in AM for consideration of trial void, then can dc to home with Home Health Supervising Physician Co-Signing Physician Notes PA Supervision Note: I did not personally see or examine the patient today, but I verified all tatum points of DENAE Biggs's assessment and plan with the following exceptions/additions: None Subjective Patient evaluated this morning. He states he continues to have burning with urination but this seems to have improved since yesterday. The patient states he has had success with his diet and is not experiencing dysphagia as long as he eats slowly and uses lots of gravy as well as small pieces. He states he doesn't feel that he is ready fro discharge yet, and would feel more comfortable waiting until tomorrow to see if his blood counts stay stable. He voices that he was told at rehab he was as good as he was going to get, and that he believes he will be discharged to home with his daughter after he leaves the hospital. He states he has follow up to remove the catheter with Dr. Tim and his one wish is to get the lloyd removed so he can regain a quality of life that he finds acceptable. Review of Systems Constitutional: no fever and no chills feeling stronger with increased nutrition Ear, Nose, Mouth, Throat: + dysphagia (decreased with addition of g ravy/slippery consistency); no dizziness and no hoarseness Respiratory: no cough and no dyspnea Cardiovascular: no chest pain, no dyspnea and no edema Gastrointestinal: no nausea, no vomiting, no constipation and no diarrhea/loose stools lower abdominal pain Genitourinary: + dysuria (decreased dysuria - continues to have some orange/red urine, however pyridium initiated) and + hematuria Integumentary: bruising to left mckinney Neurologic: no numbness and no paresthesia Psychiatric: no depression and no anxiety Physical Exam Constitutional: WD/WN, vitals as above no acute distress Eyes: PERRL, conjunctivae normal, anicteric sclerae ENMT: external ear and nose normal, oropharynx normal Neck: trachea midline, no thyromegaly Respiratory: normal respiratory effort, lungs clear to auscultation Cardiovascular: RRR, no murmur, no edema Gastrointestinal (Abdomen): Inspection/Auscultation: abdomen normal to inspection and normal bowel sounds; abdomen not distended Percussion/Palpation: + abdomen tender and abdomen soft; no guarding, abdomen not rigid and no hepatosplenomegaly Skin: right knee incision/steri-strips from prior L TKA- without erythema, streaking, or drainage right mckinney bruising improved from yesterday Neurologic: PERRL, EOMI, accommodation nl, no face palsy, no dysarthria Psychiatric: A+Ox3, euthymic affect Genitourinary: lloyd catheter in place with orange/light pink colored urine in bag Results & Data Vital Signs (Past 12 Hours) Vital Signs Temp Pulse Pulse Resp BP Pulse Ox 08/17/19 07:54 37.1 C 84 20 125/75 91 08/17/19 07:00 80 08/17/19 04:00 37.1 C 82 20 134/82 91 08/16/19 23:58 37.0 C 83 20 110/63 92 08/16/19 23:03 85 Laboratory Results 08/17/19 08/17/19 08/17/19 Range/Units 07:57 03:02 03:02 WBC 6.73 (4.8-10.8) K/uL RBC 3.42 L (4.7-6.1) M/uL Hgb 10.7 L (14.0-18.0) g/dL Hct 31.7 L (42-52) % MCV 92.7 (80-100) fL MCH 31.3 (25-34) pg MCHC 33.8 (32-36) g/dL RDW Std Deviation 44.7 (36.4-46.3) fL RDW Coeff of Federico 13.2 (11.5-14.5) % Plt Count 263 (130-400) K/uL MPV 9.6 (7.4-10.4) fL Immature Gran % (Auto) 0.1 % Neut % (Auto) 54.8 % Lymph % (Auto) 27.6 % [place] % (Auto) 13.2 % Eos % (Auto) 3.7 % Baso % (Auto) 0.6 % Immature Gran # (Auto) 0.01 (0.00-0.02) K/uL Neut # (Auto) 3.68 (1.4-6.5) K/uL Lymph # (Auto) 1.86 (1.2-3.4) K/uL [place] # (Auto) 0.89 H (0.11-0.59) K/uL Eos # (Auto) 0.25 (0-0.5) K/uL Baso # (Auto) 0.04 (0-0.2) K/uL Sodium 137 (136-145) mmol/L Potassium 3.9 (3.5-5.1) mmol/L Chloride 105 (98-107) mmol/L Carbon Dioxide 26 (21-32) mmol/L Anion Gap 6.0 (3-11) BUN 13 (7-18) mg/dl Creatinine 0.89 D (0.6-1.4) mg/dl Est Cr Clr Drug Dosing 84.8 ml/min Est GFR ( Amer) 94.9 Est GFR (Non-Af Amer) 81.9 BUN/Creatinine Ratio 14.3 (10-20) Glucose 92 (70-99) mg/dl POC Glucose 126 H (70-99) Lactate (0.4-2.0) mmol/L Calcium 8.3 L (8.5-10.1) mg/dl Magnesium 1.6 L (1.8-2.4) mg/dl 08/16/19 08/16/19 08/16/19 Range/Units 20:15 18:51 17:33 WBC 6.22 (4.8-10.8) K/uL RBC 3.55 L (4.7-6.1) M/uL Hgb 11.2 L (14.0-18.0) g/dL Hct 33.4 L (42-52) % MCV 94.1 (80-100) fL MCH 31.5 (25-34) pg MCHC 33.5 (32-36) g/dL RDW Std Deviation 46.0 (36.4-46.3) fL RDW Coeff of Federico 13.3 (11.5-14.5) % Plt Count 271 (130-400) K/uL MPV 10.2 (7.4-10.4) fL Immature Gran % (Auto) 0.0 % Neut % (Auto) 64.6 % Lymph % (Auto) 20.3 % [place] % (Auto) 11.1 % Eos % (Auto) 3.4 % Baso % (Auto) 0.6 % Immature Gran # (Auto) 0.00 (0.00-0.02) K/uL Neut # (Auto) 4.02 (1.4-6.5) K/uL Lymph # (Auto) 1.26 (1.2-3.4) K/uL [place] # (Auto) 0.69 H (0.11-0.59) K/uL Eos # (Auto) 0.21 (0-0.5) K/uL Baso # (Auto) 0.04 (0-0.2) K/uL Sodium (136-145) mmol/L Potassium (3.5-5.1) mmol/L Chloride (98-107) mmol/L Carbon Dioxide (21-32) mmol/L Anion Gap (3-11) BUN (7-18) mg/dl Creatinine (0.6-1.4) mg/dl Est Cr Clr Drug Dosing ml/min Est GFR ( Amer) Est GFR (Non-Af Amer) BUN/Creatinine Ratio (10-20) Glucose (70-99) mg/dl POC Glucose 265 H 103 H (70-99) Lactate (0.4-2.0) mmol/L Calcium (8.5-10.1) mg/dl Magnesium (1.8-2.4) mg/dl 08/16/19 08/16/19 08/16/19 Range/Units 14:02 12:02 08:48 WBC (4.8-10.8) K/uL RBC (4.7-6.1) M/uL Hgb (14.0-18.0) g/dL Hct (42-52) % MCV (80-100) fL MCH (25-34) pg MCHC (32-36) g/dL RDW Std Deviation (36.4-46.3) fL RDW Coeff of Federico (11.5-14.5) % Plt Count (130-400) K/uL MPV (7.4-10.4) fL Immature Gran % (Auto) % Neut % (Auto) % Lymph % (Auto) % [place] % (Auto) % Eos % (Auto) % Baso % (Auto) % Immature Gran # (Auto) (0.00-0.02) K/uL Neut # (Auto) (1.4-6.5) K/uL Lymph # (Auto) (1.2-3.4) K/uL [place] # (Auto) (0.11-0.59) K/uL Eos # (Auto) (0-0.5) K/uL Baso # (Auto) (0-0.2) K/uL Sodium (136-145) mmol/L Potassium (3.5-5.1) mmol/L Chloride (98-107) mmol/L Carbon Dioxide (21-32) mmol/L Anion Gap (3-11) BUN (7-18) mg/dl Creatinine (0.6-1.4) mg/dl Est Cr Clr Drug Dosing ml/min Est GFR ( Amer) Est GFR (Non-Af Amer) BUN/Creatinine Ratio (10-20) Glucose (70-99) mg/dl POC Glucose 120 H (70-99) Lactate 1.2 (0.4-2.0) mmol/L Calcium (8.5-10.1) mg/dl Magnesium 1.8 (1.8-2.4) mg/dl 08/16/19 Range/Units 08:47 WBC 6.32 (4.8-10.8) K/uL RBC 3.51 L (4.7-6.1) M/uL Hgb 11.1 L (14.0-18.0) g/dL Hct 32.6 L (42-52) % MCV 92.9 (80-100) fL MCH 31.6 (25-34) pg MCHC 34.0 (32-36) g/dL RDW Std Deviation 45.0 (36.4-46.3) fL RDW Coeff of Federico 13.3 (11.5-14.5) % Plt Count 276 (130-400) K/uL MPV 9.4 (7.4-10.4) fL Immature Gran % (Auto) 0.2 % Neut % (Auto) 49.3 % Lymph % (Auto) 31.3 % [place] % (Auto) 14.1 % Eos % (Auto) 4.3 % Baso % (Auto) 0.8 % Immature Gran # (Auto) 0.01 (0.00-0.02) K/uL Neut # (Auto) 3.12 (1.4-6.5) K/uL Lymph # (Auto) 1.98 (1.2-3.4) K/uL [place] # (Auto) 0.89 H (0.11-0.59) K/uL Eos # (Auto) 0.27 (0-0.5) K/uL Baso # (Auto) 0.05 (0-0.2) K/uL Sodium (136-145) mmol/L Potassium (3.5-5.1) mmol/L Chloride (98-107) mmol/L Carbon Dioxide (21-32) mmol/L Anion Gap (3-11) BUN (7-18) mg/dl Creatinine (0.6-1.4) mg/dl Est Cr Clr Drug Dosing ml/min Est GFR ( Amer) Est GFR (Non-Af Amer) BUN/Creatinine Ratio (10-20) Glucose (70-99) mg/dl POC Glucose (70-99) Lactate (0.4-2.0) mmol/L Calcium (8.5-10.1) mg/dl Magnesium (1.8-2.4) mg/dl Diagnostic Findings RENAL ULTRASOUND CLINICAL HISTORY: hematuria, back pain COMPARISON STUDY: CT of the abdomen and pelvis August 11, 2019. TECHNIQUE: Sonography of the kidneys and the urinary bladder was performed. FINDINGS: This exam is compromised by suboptimal penetration. No hydronephrosis is identified. The right kidney measures 9 cm in maximal dimension and the left measures 12.5 cm. The bladder is collapsed, containing a Lloyd catheter. Bowel wall thickening is noted. No renal calculi are identified. IMPRESSION: 1. No hydronephrosis. 2. Lloyd balloon within the bladder. Nonspecific bladder wall thickening, accentuated by underdistention. Urothelial lesion cannot be excluded on this exam. PG Care Time/CCT Total # of Minutes Spent Total Time Spent with Patient: Total time spent is greater than 50% in coordination of care (as documented) at patient's floor/unit and/or counseling patient: (1) Benign prostatic hyperplasia Lower urinary tract symptom detail: straining on urination Lower urinary tract symptom presence: symptoms present Qualified Code(s): N40.1 - Benign prostatic hyperplasia with lower urinary tract symptoms; R39.16 - Straining to void (2) Hematuria Hematuria type: gross Qualified Code(s): R31.0 - Gross hematuria (3) Diabetes Diabetes mellitus complication status: without complication Diabetes mellitus termite technician insulin use: without termite technician use Diabetes mellitus type: type 2 Qualified Code(s): E11.9 - Type 2 diabetes mellitus without complications (4) COPD (chronic obstructive pulmonary disease) COPD type: unspecified COPD Qualified Code(s): J44.9 - Chronic obstructive pulmonary disease, unspecified (5) Abdominal pain Abdominal location: lower abdomen, unspecified Qualified Code(s): R10.30 - Lower abdominal pain, unspecified (6) Hypertension Hypertension type: essential hypertension Qualified Code(s): I10 - Essential (primary) hypertension
[2019-08-17] MEDS: PHENAZOPYRIDINE HCL 100 MG TAB PO PRN ×2 (08:38→21:46)
[2019-08-17] MEDS: FERROUS SULFATE 325 MG TAB PO SCH ×2 (08:38→17:11)
[2019-08-17] MEDS: TAMSULOSIN HCL 0.4 MG CAP PO SCH (08:38)
[2019-08-17] MEDS: METOPROLOL SUCC 25MG EXT REL TAB PO SCH ×2 (08:39→21:45)
[2019-08-17] MEDS: OXYBUTYNIN CHLORIDE 5 MG TAB PO PRN (08:39)
[2019-08-17] MEDS: carBAMazepine 200 MG TABLET PO SCH ×2 (08:39→21:44)
[2019-08-17] MEDS: BENAZEPRIL HCL 10 MG TAB PO SCH (08:39)
[2019-08-17] MEDS: CIPROFLOXACIN 500 MG TAB PO SCH ×2 (08:39→21:45)
[2019-08-17] MEDS: INSULIN GLARGINE SOLOSTAR 100 UNITS/ML 3 ML PEN SC SCH ×2 (08:40→21:46)
[2019-08-17] MEDS: INSULIN ASPART 100 UNITS/ML 3 ML PEN SC SCH ×4 (08:42→21:47)
[2019-08-17 11:19] LABS: Basophils # (auto) 0.05 K/uL (0-0.2); Basophils % (auto) 0.6 %; Eosinophils # (auto) 0.31 K/uL (0-0.5); Eosinophils % (auto) 3.7 %; Hematocrit (blood only) 33.3 % (42-52); Hemoglobin 11.5 g/dL (14.0-18.0); Immature Granulocytes # (auto) 0.01 K/uL (0.00-0.02); Immature Granulocytes % (auto) 0.1 %; Lymphocytes # (auto) 1.37 K/uL (1.2-3.4); Lymphocytes % (auto) 16.5 %; Mean Corpuscular Hgb Conc 34.5 g/dL (32-36); Mean Corpuscular Volume 92.8 fL (80-100); Mean Platelet Volume 9.7 fL (7.4-10.4); Monocytes % (auto) 12.1 %; Neutrophils # (auto) 5.55 K/uL (1.4-6.5); Platelet Count 290 K/uL (130-400); RDW Coefficient of Variation 13.2 % (11.5-14.5); RDW Standard Deviation 45.1 fL (36.4-46.3); Red Blood Count 3.59 M/uL (4.7-6.1); White Blood Count 8.29 K/uL (4.8-10.8)
--- NOTE | 2019-08-17 12:02 | Nephrology Consultation ---
Date of Consultation August 17, 2019 Assessment & Plan (1) Hematuria: Patient's clinical presentation including the passage of clots is consistent with non glomerular hematuria. Red blood cell casts were noted on urinalysis yesterday. However, the patient does not have any other evidence of an active acute GN. Creatinine is stable which excludes sick rapidly progressive glomerular nephritis. I cannot completely exclude that the patient could have IgA nephropathy however I also have no documentation or history to support any thing similar in the past. I did not think any additional evaluation regarding these red blood cell counts is necessary at this time. Would suggest the patient continue to have close outpatient follow-up with her primary apron cleaner upon discharge from the hospital. Nephrology will sign off. Please call with any questions or concerns. (2) Benign prostatic hyperplasia: (3) Hypertension: History of Present Illness Attending Physician: Ella Campoverde MD History of Present Illness Mr. Yayo Martinez is a 79-year-old male with gross hematuria. The patient follows with Dr. Mally Gipson in [place] regarding a history of chronic kidney disease class 2. Patient was told that his kidney dysfunction was related to diabetes. He does not recall any prior history of hematuria. Mr. Martinez underwent right TKA performed by Dr. Smith on July 25, 2019. He had some urinary retention following surgery which required straight catheterization. The patient was discharged to [place]hab at [facility] [place], [place]. Patient then presented to the emergency department at [facility] August 06 with persistent hematuria, passage of clots, dysuria. He was given a prescription for ciprofloxacin 500 milligrams twice daily be taken for suspected cystitis. Unfortunately, he then presented to the the emergency room at [facility] on August 11 with hematuria, dysuria, and flank pain. CT of the abdomen revealed chronic bladder outlet obstruction secondary to prostatomegaly. Is a punctate nonobstructing right renal calculus. Ciprofloxacin was switched to Augmentin. He was started on Flomax and finasteride. Patient was then evaluated by Urology as an outpatient on August 13. Dysuria and hematuria persisted. A cystoscopy was performed by Dr. Tim which revealed moderate inflammation of the bladder wall, large amount of old clot present. There is no tumor noted. A Guerrero catheter was placed. [facility] with persistent pain in the s uprapubic area as well as persistent gross hematuria with clots. Urology consultation was obtained. The patient is now being treated with Pyridium and oxybutynin in addition to his prior therapy. Guerrero catheter has been irrigated. Gross hematuria does seem to be improving. Urinalysis obtained during the admission demonstrated red blood cell cast. Serum creatinine has been stable 1.2 milligrams/deciliter. Allergies Allergy/AdvReac Type Severity Reaction Status Date / Time No Known Allergies Allergy Verified 08/15/19 23:01 Home Medications Home Medications Medication Instructions Recorded Confirmed Type Januvia 100 mg PO QPM 06/26/19 08/15/19 History acetaminophen-codeine 1 tab PO Q6H PRN 06/26/19 08/15/19 History atorvastatin [Lipitor] 10 mg PO HS 06/26/19 08/15/19 History benazepril [Lotensin] 10 mg PO QAM 06/26/19 08/15/19 History carbamazepine [Tegretol] 200 mg PO BID 06/26/19 08/15/19 History dicyclomine 10 mg PO BID PRN 06/26/19 08/15/19 History fluticasone propion-salmeterol 1 inh INHALATION Q12H PRN 06/26/19 08/15/19 History [Advair Diskus] glimepiride 4 mg PO QAM 06/26/19 08/15/19 History metoprolol succinate [Toprol XL] 25 mg PO BID 06/26/19 08/15/19 History omega 1-kxp-ptz-fish oil [Fish Oil] 1 cap PO QAM 06/26/19 08/15/19 History pioglitazone [Actos] 15 mg PO QAM 06/26/19 08/15/19 History ranitidine HCl 150 mg PO BID 06/26/19 08/15/19 History aspirin [Ecotrin Low Strength] 81 mg PO BID 45 Days #90 tab 07/26/19 08/15/19 Rx ferrous sulfate 325 mg PO BID 08/11/19 08/15/19 History metformin 1,000 mg PO BID 08/11/19 08/15/19 History multivitamin with minerals 1 tab PO QAM 08/11/19 08/15/19 History [Multiple Vitamin-Minerals] oxycodone 5 mg PO Q4 PRN 08/11/19 08/15/19 History tamsulosin [Flomax] 0.4 mg PO DAILY #20 cap 08/11/19 08/15/19 Rx acetaminophen 325 mg PO Q6H PRN 08/15/19 08/15/19 History acetaminophen [Tylenol] 650 mg PO Q4H PRN 08/15/19 08/15/19 History amoxicillin-pot clavulanate 1 tab PO BID 08/15/19 08/15/19 History [Augmentin] bisacodyl [Dulcolax (bisacodyl)] 10 mg MA DAILY PRN 08/15/19 08/15/19 History chlordiazepoxide HCl 10 mg PO BID 08/15/19 08/15/19 History finasteride 5 mg PO HS 08/15/19 08/15/19 History Patient History Medical History Anemia hx Anxiety BPH (benign prostatic hyperplasia) Cardiac murmur no problems per daughter. "an irregular heartbeat" Carotid artery disease Chronic kidney disease stage 2 Chronic obstructive pulmonary disease Degenerative cervical disc Degenerative disc disease Depression Diabetes mellitus, type 2 niddm GI bleed hx Hx of fracture possible jaw fracture with surgery. no difficulty opening mouth Hx of head injury 1976 Hyperlipidemia Hypertension Kidney stones hx Osteoarthritis PAC (premature atrial contraction) per pcp documentation PAD (peripheral artery disease) Peptic ulcer disease hx Poor historian Schatzki's ring per pcp documentation Seizure r/t head injury (1976) patient does not know when his last seizure was, states it was at least for 38 years. follows with PCP. Spinal stenosis Surgical History Fusion of spine Full ROM H/O elbow surgery right H/O neck surgery with revision to screw in his neck H/O of nasal cauterization History of angioplasty of peripheral vessel bilateral leg History of arthroscopy of right knee History of colonoscopy History of discectomy cervical History of esophagogastroduodenoscopy (EGD) History of tooth extraction History of total knee replacement left S/P epidural steroid injection Family History Father Family history of diabetes mellitus Sister FHx: liver cancer Social History Preferred Language: [place] Communication Ability: Effective Highway Truck Driver Required: No Beliefs That Will Affect Care: None Current Living Situation: Alone Other Information That Helps Us Care for You: No Feels Safe at Home: Yes Safety Concerns: Feels Safe At This Time Smoking Status: Former smoker Tobacco Type: cigarettes ; Smoking End Date: 30 years ago ; Second Hand Exposure: No ; Hx Alcohol Use: Yes Alcohol type: wine Hx Substance Use: No Review of Systems Review of Systems: All systems reviewed & are unremarkable except as noted in HPI & below Physical Exam Constitutional: well developed; no acute distress Eyes: + anicteric sclerae; no conjunctival abnormality ENMT: Ears: + hearing impairment Mouth: oral mucous membranes not dry Neck: normal visual inspection and trachea midline Respiratory: normal respiratory effort Auscultation: lungs clear to auscultation bilaterally Cardiovascular: Rate/Rhythm: regular rate Heart Sounds: normal S1 and normal S2 Extremities: no edema Gastrointestinal (Abdomen): Inspection/Auscultation: + abdomen distended Percussion/Palpation: abdomen soft; abdomen nontender Musculoskeletal: Extremities: no cyanosis, no clubbing and no petechiae Skin: normal turgor; no lesions Neurologic: Motor/Sensory: no tremor and no asterixis Psychiatric: Orientation: alert and oriented x 3 Genitourinary: no CVA tenderness Guerrero draining light kady urine Results & Data Vital Signs (Past 12 Hours) Vital Signs Temp Pulse Pulse Resp BP Pulse Ox 08/17/19 07:54 37.1 C 84 20 125/75 91 08/17/19 07:00 80 08/17/19 04:00 37.1 C 82 20 134/82 91 08/16/19 23:58 37.0 C 83 20 110/63 92 Laboratory Results Laboratory Results - last 24 hr 08/16/19 08/16/19 08/16/19 12:02 14:02 17:33 WBC RBC Hgb Hct MCV MCH MCHC RDW Std Deviation RDW Coeff of Federico Plt Count MPV Immature Gran % (Auto) Neut % (Auto) Lymph % (Auto) [place] % (Auto) Eos % (Auto) Baso % (Auto) Immature Gran # (Auto) Neut # (Auto) Lymph # (Auto) [place] # (Auto) Eos # (Auto) Baso # (Auto) Sodium Potassium Chloride Carbon Dioxide Anion Gap BUN Creatinine Est Cr Clr Drug Dosing Est GFR ( Amer) Est GFR (Non-Af Amer) BUN/Creatinine Ratio Glucose POC Glucose 120 H 103 H Calcium Magnesium 1.8 08/16/19 08/16/19 08/17/19 18:51 20:15 03:02 WBC 6.22 6.73 RBC 3.55 L 3.42 L Hgb 11.2 L 10.7 L Hct 33.4 L 31.7 L MCV 94.1 92.7 MCH 31.5 31.3 MCHC 33.5 33.8 RDW Std Deviation 46.0 44.7 RDW Coeff of Federico 13.3 13.2 Plt Count 271 263 MPV 10.2 9.6 Immature Gran % (Auto) 0.0 0.1 Neut % (Auto) 64.6 54.8 Lymph % (Auto) 20.3 27.6 [place] % (Auto) 11.1 13.2 Eos % (Auto) 3.4 3.7 Baso % (Auto) 0.6 0.6 Immature Gran # (Auto) 0.00 0.01 Neut # (Auto) 4.02 3.68 Lymph # (Auto) 1.26 1.86 [place] # (Auto) 0.69 H 0.89 H Eos # (Auto) 0.21 0.25 Baso # (Auto) 0.04 0.04 Sodium Potassium Chloride Carbon Dioxide Anion Gap BUN Creatinine Est Cr Clr Drug Dosing Est GFR ( Amer) Est GFR (Non-Af Amer) BUN/Creatinine Ratio Glucose POC Glucose 265 H Calcium Magnesium 08/17/19 08/17/19 08/17/19 03:02 07:57 11:01 WBC 8.29 RBC 3.59 L Hgb 11.5 L Hct 33.3 L MCV 92.8 MCH 32.0 MCHC 34.5 RDW Std Deviation 45.1 RDW Coeff of Federico 13.2 Plt Count 290 MPV 9.7 Immature Gran % (Auto) 0.1 Neut % (Auto) 67.0 Lymph % (Auto) 16.5 [place] % (Auto) 12.1 Eos % (Auto) 3.7 Baso % (Auto) 0.6 Immature Gran # (Auto) 0.01 Neut # (Auto) 5.55 Lymph # (Auto) 1.37 [place] # (Auto) 1.00 H Eos # (Auto) 0.31 Baso # (Auto) 0.05 Sodium 137 Potassium 3.9 Chloride 105 Carbon Dioxide 26 Anion Gap 6.0 BUN 13 Creatinine 0.89 D Est Cr Clr Drug Dosing 84.8 Est GFR ( Amer) 94.9 Est GFR (Non-Af Amer) 81.9 BUN/Creatinine Ratio 14.3 Glucose 92 POC Glucose 126 H Calcium 8.3 L Magnesium 1.6 L 08/17/19 11:46 WBC RBC Hgb Hct MCV MCH MCHC RDW Std Deviation RDW Coeff of Federico Plt Count MPV Immature Gran % (Auto) Neut % (Auto) Lymph % (Auto) [place] % (Auto) Eos % (Auto) Baso % (Auto) Immature Gran # (Auto) Neut # (Auto) Lymph # (Auto) [place] # (Auto) Eos # (Auto) Baso # (Auto) Sodium Potassium Chloride Carbon Dioxide Anion Gap BUN Creatinine Est Cr Clr Drug Dosing Est GFR ( Amer) Est GFR (Non-Af Amer) BUN/Creatinine Ratio Glucose POC Glucose 147 H Calcium Magnesium PG Care Time/CCT Total # of Minutes Spent Total Time Spent with Patient: Total time spent is greater than 50% in coordination of care (as documented) at patient's floor/unit and/or counseling patient: (1) Hematuria Hematuria type: gross Qualified Code(s): R31.0 - Gross hematuria (2) Benign prostatic hyperplasia Lower urinary tract symptom detail: straining on urination Lower urinary tract symptom presence: symptoms present Qualified Code(s): N40.1 - Benign prostatic hyperplasia with lower urinary tract symptoms; R39.16 - Straining to void (3) Hypertension Hypertension type: essential hypertension Qualified Code(s): I10 - Essential (primary) hypertension
--- NOTE | 2019-08-17 15:17 | Urology Progress Note ---
Date of Service August 17, 2019 Assessment & Plan (1) BPH (benign prostatic hyperplasia): (2) Gross hematuria: A/P 79-year-old male with improving hematuria, Guerrero catheter in place. Current urinary discoloration is most consistent with Pyridium effect. Essentially his urine seems clear and improved from previous. Patient feels his strength is improving and is amenable to consideration for discharge home tomorrow. An upcoming trial of void in our office is planned this week but if the patient is going to be leaving tomorrow can consider trial of void prior to discharge. Patient understands that this might mean that his catheter needs to be replaced for another period of time should he fail. Continue maximal medical therapy for BPH with finasteride and tamsulosin. Oxybutynin should be stopped prior to removal of Guerrero to improve the patient's odds of voiding spontaneously . Outpatient appointments in our office are in place for follow-up and can be kept as scheduled. Our service will reevaluate in the morning for recurrent hematuria and clots and consideration of trial of void. Subjective 79-year-old male with persistent hematuria and Guerreor catheter in place. Nephrology and hospitalist notes as well as events since the patient was evaluated and hand irrigated yesterday are reviewed. Patient feels that his strength is improving with better oral food intake. He reports irrigation of some small clots yesterday but feels that his urine is overall improved. He seems in better spirits and improved condition. He reports that he continued to have spasms associated with bladder irrigation but that the anticholinergics and Pyridium are helping in this regard. Review of Systems Constitutional: + fatigue and + weakness; no fever and no chills Eyes: no diplopia Ear, Nose, Mouth, Throat: no ear trauma Respiratory: no hemoptysis Cardiovascular: + chest pain (Intermittent, associated with bladder spasms per patient) Gastrointestinal: + abdominal pain; no constipation Genitourinary: + difficulty urinating and + hematuria Musculoskeletal: + back pain Integumentary: no acne and no boil Neurologic: no paralysis Psychiatric: no hopelessness Endocrine: + fatigue Hematologic / Lymphatic: + easy bleeding and + coagulopathy Allergy / Immunological: no tongue swelling Physical Exam Constitutional: + obese; no acute distress Eyes: eyes not dysmorphic ENMT: Ears: no external ear abnormality Neck: trachea midline; no anterior neck swelling Respiratory: no respiratory distress and does not use accessory muscles Cardiovascular: Vessels: radial pulses present Gastrointestinal (Abdomen): Inspection/Auscultation: abdomen not distended Percussion/Palpation: abdomen soft; abdomen nontender Musculoskeletal: Head/Neck/Chest: normocephalic and neck supple Skin: normal turgor Neurologic: awake; not obtunded Psychiatric: Orientation: oriented x 3 Genitourinary: no penis abnormality Lymphatic: no lymphadenopathy Results & Data Vital Signs (Past 12 Hours) Vital Signs Temp Pulse Pulse Resp BP Pulse Ox 08/17/19 12:54 36.9 C 75 20 115/73 94 08/17/19 07:54 37.1 C 84 20 125/75 91 08/17/19 07:00 80 08/17/19 04:00 37.1 C 82 20 134/82 91 Laboratory Results Laboratory Results - last 48 hr 08/15/19 08/15/19 08/15/19 23:40 23:40 23:40 WBC 7.27 RBC 3.89 L Hgb 12.3 L Hct 36.3 L MCV 93.3 MCH 31.6 MCHC 33.9 RDW Std Deviation 45.2 RDW Coeff of Federico 13.2 Plt Count 321 MPV 9.9 Immature Gran % (Auto) 0.1 Neut % (Auto) 62.7 Lymph % (Auto) 23.0 [place] % (Auto) 10.5 Eos % (Auto) 3.3 Baso % (Auto) 0.4 Immature Gran # (Auto) 0.01 Neut # (Auto) 4.56 Lymph # (Auto) 1.67 [place] # (Auto) 0.76 H Eos # (Auto) 0.24 Baso # (Auto) 0.03 PT 11.3 INR 1.1 APTT 26.5 PTT Ratio 1.0 Sodium 137 Potassium 4.4 Chloride 103 Carbon Dioxide 26 Anion Gap 8.0 BUN 16 Creatinine 1.20 Est Cr Clr Drug Dosing 62.4 Est GFR ( Amer) 66.7 Est GFR (Non-Af Amer) 57.6 BUN/Creatinine Ratio 13.0 Glucose 71 POC Glucose Lactate Calcium 9.1 Phosphorus Magnesium Total Bilirubin 0.4 AST 19 ALT 25 Alkaline Phosphatase 88 Total Protein 8.2 Albumin 3.4 Globulin 4.8 H Albumin/Globulin Ratio 0.7 L Urine Color Urine Appearance Urine pH Ur Specific [place] Urine Protein Urine Glucose (UA) Urine Ketones Urine Blood Urine Nitrite Urine Bilirubin Urine Urobilinogen Ur Leukocyte Esterase Urine RBC Urine WBC Ur Epithelial Cells Ur Renal Epithelial Cell Urine Bacteria RBC Casts Nasal Screen MRSA (PCR) 08/15/19 08/15/19 08/16/19 23:50 23:56 03:12 WBC 7.37 RBC 3.51 L Hgb 11.0 L Hct 33.2 L MCV 94.6 MCH 31.3 MCHC 33.1 RDW Std Deviation 45.9 RDW Coeff of Federico 13.2 Plt Count 282 MPV 9.8 Immature Gran % (Auto) 0.1 Neut % (Auto) 58.9 Lymph % (Auto) 24.6 [place] % (Auto) 12.6 Eos % (Auto) 3.3 Baso % (Auto) 0.5 Immature Gran # (Auto) 0.01 Neut # (Auto) 4.34 Lymph # (Auto) 1.81 [place] # (Auto) 0.93 H Eos # (Auto) 0.24 Baso # (Auto) 0.04 PT INR APTT PTT Ratio Sodium Potassium Chloride Carbon Dioxide Anion Gap BUN Creatinine Est Cr Clr Drug Dosing Est GFR ( Amer) Est GFR (Non-Af Amer) BUN/Creatinine Ratio Glucose POC Glucose Lactate 3.7 H* Calcium Phosphorus Magnesium Total Bilirubin AST ALT Alkaline Phosphatase Total Protein Albumin Globulin Albumin/Globulin Ratio Urine Color Red Urine Appearance Turbid A Urine pH 5.0 Ur Specific [place] >= 1.030 Urine Protein 3+ H Urine Glucose (UA) Negative Urine Ketones Trace H Urine Blood 3+ H Urine Nitrite Negative Urine Bilirubin Negative Urine Urobilinogen Negative Ur Leukocyte Esterase Negative Urine RBC >30 H Urine WBC 10-30 H Ur Epithelial Cells 0-5 Ur Renal Epithelial Cell 5-10 H Urine Bacteria 2+ H RBC Casts 1-5 H Nasal Screen MRSA (PCR) 08/16/19 08/16/19 08/16/19 03:12 04:30 06:17 WBC RBC Hgb Hct MCV MCH MCHC RDW Std Deviation RDW Coeff of Federico Plt Count MPV Immature Gran % (Auto) Neut % (Auto) Lymph % (Auto) [place] % (Auto) Eos % (Auto) Baso % (Auto) Immature Gran # (Auto) Neut # (Auto) Lymph # (Auto) [place] # (Auto) Eos # (Auto) Baso # (Auto) PT INR APTT PTT Ratio Sodium Potassium Chloride Carbon Dioxide Anion Gap BUN Creatinine Est Cr Clr Drug Dosing Est GFR ( Amer) Est GFR (Non-Af Amer) BUN/Creatinine Ratio Glucose POC Glucose 101 H Lactate Calcium Phosphorus 3.1 Magnesium 1.4 L Total Bilirubin AST ALT Alkaline Phosphatase Total Protein Albumin Globulin Albumin/Globulin Ratio Urine Color Urine Appearance Urine pH Ur Specific [place] Urine Protein Urine Glucose (UA) Urine Ketones Urine Blood Urine Nitrite Urine Bilirubin Urine Urobilinogen Ur Leukocyte Esterase Urine RBC Urine WBC Ur Epithelial Cells Ur Renal Epithelial Cell Urine Bacteria RBC Casts Nasal Screen MRSA (PCR) Negative 08/16/19 08/16/19 08/16/19 08:47 08:48 12:02 WBC 6.32 RBC 3.51 L Hgb 11.1 L Hct 32.6 L MCV 92.9 MCH 31.6 MCHC 34.0 RDW Std Deviation 45.0 RDW Coeff of Federico 13.3 Plt Count 276 MPV 9.4 Immature Gran % (Auto) 0.2 Neut % (Auto) 49.3 Lymph % (Auto) 31.3 [place] % (Auto) 14.1 Eos % (Auto) 4.3 Baso % (Auto) 0.8 Immature Gran # (Auto) 0.01 Neut # (Auto) 3.12 Lymph # (Auto) 1.98 [place] # (Auto) 0.89 H Eos # (Auto) 0.27 Baso # (Auto) 0.05 PT INR APTT PTT Ratio Sodium Potassium Chloride Carbon Dioxide Anion Gap BUN Creatinine Est Cr Clr Drug Dosing Est GFR ( Amer) Est GFR (Non-Af Amer) BUN/Creatinine Ratio Glucose POC Glucose 120 H Lactate 1.2 Calcium Phosphorus Magnesium Total Bilirubin AST ALT Alkaline Phosphatase Total Protein Albumin Globulin Albumin/Globulin Ratio Urine Color Urine Appearance Urine pH Ur Specific [place] Urine Protein Urine Glucose (UA) Urine Ketones Urine Blood Urine Nitrite Urine Bilirubin Urine Urobilinogen Ur Leukocyte Esterase Urine RBC Urine WBC Ur Epithelial Cells Ur Renal Epithelial Cell Urine Bacteria RBC Casts Nasal Screen MRSA (PCR) 08/16/19 08/16/19 08/16/19 14:02 17:33 18:51 WBC 6.22 RBC 3.55 L Hgb 11.2 L Hct 33.4 L MCV 94.1 MCH 31.5 MCHC 33.5 RDW Std Deviation 46.0 RDW Coeff of Federico 13.3 Plt Count 271 MPV 10.2 Immature Gran % (Auto) 0.0 Neut % (Auto) 64.6 Lymph % (Auto) 20.3 [place] % (Auto) 11.1 Eos % (Auto) 3.4 Baso % (Auto) 0.6 Immature Gran # (Auto) 0.00 Neut # (Auto) 4.02 Lymph # (Auto) 1.26 [place] # (Auto) 0.69 H Eos # (Auto) 0.21 Baso # (Auto) 0.04 PT INR APTT PTT Ratio Sodium Potassium Chloride Carbon Dioxide Anion Gap BUN Creatinine Est Cr Clr Drug Dosing Est GFR ( Amer) Est GFR (Non-Af Amer) BUN/Creatinine Ratio Glucose POC Glucose 103 H Lactate Calcium Phosphorus Magnesium 1.8 Total Bilirubin AST ALT Alkaline Phosphatase Total Protein Albumin Globulin Albumin/Globulin Ratio Urine Color Urine Appearance Urine pH Ur Specific [place] Urine Protein Urine Glucose (UA) Urine Ketones Urine Blood Urine Nitrite Urine Bilirubin Urine Urobilinogen Ur Leukocyte Esterase Urine RBC Urine WBC Ur Epithelial Cells Ur Renal Epithelial Cell Urine Bacteria RBC Casts Nasal Screen MRSA (PCR) 08/16/19 08/17/19 08/17/19 20:15 03:02 03:02 WBC 6.73 RBC 3.42 L Hgb 10.7 L Hct 31.7 L MCV 92.7 MCH 31.3 MCHC 33.8 RDW Std Deviation 44.7 RDW Coeff of Federico 13.2 Plt Count 263 MPV 9.6 Immature Gran % (Auto) 0.1 Neut % (Auto) 54.8 Lymph % (Auto) 27.6 [place] % (Auto) 13.2 Eos % (Auto) 3.7 Baso % (Auto) 0.6 Immature Gran # (Auto) 0.01 Neut # (Auto) 3.68 Lymph # (Auto) 1.86 [place] # (Auto) 0.89 H Eos # (Auto) 0.25 Baso # (Auto) 0.04 PT INR APTT PTT Ratio Sodium 137 Potassium 3.9 Chloride 105 Carbon Dioxide 26 Anion Gap 6.0 BUN 13 Creatinine 0.89 D Est Cr Clr Drug Dosing 84.8 Est GFR ( Amer) 94.9 Est GFR (Non-Af Amer) 81.9 BUN/Creatinine Ratio 14.3 Glucose 92 POC Glucose 265 H Lactate Calcium 8.3 L Phosphorus Magnesium 1.6 L Total Bilirubin AST ALT Alkaline Phosphatase Total Protein Albumin Globulin Albumin/Globulin Ratio Urine Color Urine Appearance Urine pH Ur Specific [place] Urine Protein Urine Glucose (UA) Urine Ketones Urine Blood Urine Nitrite Urine Bilirubin Urine Urobilinogen Ur Leukocyte Esterase Urine RBC Urine WBC Ur Epithelial Cells Ur Renal Epithelial Cell Urine Bacteria RBC Casts Nasal Screen MRSA (PCR) 08/17/19 08/17/19 08/17/19 07:57 11:01 11:46 WBC 8.29 RBC 3.59 L Hgb 11.5 L Hct 33.3 L MCV 92.8 MCH 32.0 MCHC 34.5 RDW Std Deviation 45.1 RDW Coeff of Federico 13.2 Plt Count 290 MPV 9.7 Immature Gran % (Auto) 0.1 Neut % (Auto) 67.0 Lymph % (Auto) 16.5 [place] % (Auto) 12.1 Eos % (Auto) 3.7 Baso % (Auto) 0.6 Immature Gran # (Auto) 0.01 Neut # (Auto) 5.55 Lymph # (Auto) 1.37 [place] # (Auto) 1.00 H Eos # (Auto) 0.31 Baso # (Auto) 0.05 PT INR APTT PTT Ratio Sodium Potassium Chloride Carbon Dioxide Anion Gap BUN Creatinine Est Cr Clr Drug Dosing Est GFR ( Amer) Est GFR (Non-Af Amer) BUN/Creatinine Ratio Glucose POC Glucose 126 H 147 H Lactate Calcium Phosphorus Magnesium Total Bilirubin AST ALT Alkaline Phosphatase Total Protein Albumin Globulin Albumin/Globulin Ratio Urine Color Urine Appearance Urine pH Ur Specific [place] Urine Protein Urine Glucose (UA) Urine Ketones Urine Blood Urine Nitrite Urine Bilirubin Urine Urobilinogen Ur Leukocyte Esterase Urine RBC Urine WBC Ur Epithelial Cells Ur Renal Epithelial Cell Urine Bacteria RBC Casts Nasal Screen MRSA (PCR) 08/17/19 12:06 WBC RBC Hgb Hct MCV MCH MCHC RDW Std Deviation RDW Coeff of Federico Plt Count MPV Immature Gran % (Auto) Neut % (Auto) Lymph % (Auto) [place] % (Auto) Eos % (Auto) Baso % (Auto) Immature Gran # (Auto) Neut # (Auto) Lymph # (Auto) [place] # (Auto) Eos # (Auto) Baso # (Auto) PT INR APTT PTT Ratio Sodium Potassium Chloride Carbon Dioxide Anion Gap BUN Creatinine Est Cr Clr Drug Dosing Est GFR ( Amer) Est GFR (Non-Af Amer) BUN/Creatinine Ratio Glucose POC Glucose Lactate Calcium Phosphorus Magnesium 1.8 Total Bilirubin AST ALT Alkaline Phosphatase Total Protein Albumin Globulin Albumin/Globulin Ratio Urine Color Urine Appearance Urine pH Ur Specific [place] Urine Protein Urine Glucose (UA) Urine Ketones Urine Blood Urine Nitrite Urine Bilirubin Urine Urobilinogen Ur Leukocyte Esterase Urine RBC Urine WBC Ur Epithelial Cells Ur Renal Epithelial Cell Urine Bacteria RBC Casts Nasal Screen MRSA (PCR) PG Care Time/CCT Total # of Minutes Spent Total Time Spent with Patient: Total time spent is greater than 50% in coordination of care (as documented) at patient's floor/unit and/or counseling patient:
[2019-08-17 19:10] LABS: Basophils # (auto) 0.03 K/uL (0-0.2); Basophils % (auto) 0.4 %; Eosinophils # (auto) 0.21 K/uL (0-0.5); Eosinophils % (auto) 2.9 %; Hemoglobin 11.3 g/dL (14.0-18.0); Immature Granulocytes # (auto) 0.01 K/uL (0.00-0.02); Immature Granulocytes % (auto) 0.1 %; Lymphocytes # (auto) 1.28 K/uL (1.2-3.4); Lymphocytes % (auto) 17.6 %; Mean Corpuscular Hemoglobin 31.5 pg (25-34); Mean Corpuscular Hgb Conc 33.2 g/dL (32-36); Mean Corpuscular Volume 94.7 fL (80-100); Mean Platelet Volume 9.9 fL (7.4-10.4); Monocytes # (auto) 0.96 K/uL (0.11-0.59); Monocytes % (auto) 13.2 %; Neutrophils # (auto) 4.79 K/uL (1.4-6.5); Neutrophils % (auto) 65.8 %; Platelet Count 258 K/uL (130-400); RDW Coefficient of Variation 13.3 % (11.5-14.5); RDW Standard Deviation 45.9 fL (36.4-46.3); Red Blood Count 3.59 M/uL (4.7-6.1); White Blood Count 7.28 K/uL (4.8-10.8)
[2019-08-17] MEDS: OXYCODONE HCL IR 5 MG TAB (IMMEDIATE RELEASE) PO PRN (21:44)
[2019-08-17] MEDS: FINASTERIDE 5 MG TAB PO SCH (21:45)
[2019-08-17] MEDS: ATORVASTATIN 10 MG TAB PO SCH (21:46)
[2019-08-18] MEDS: INSULIN ASPART 100 UNITS/ML 3 ML PEN SC SCH ×5 (01:00→21:19)
[2019-08-18] MEDS: OXYCODONE HCL IR 5 MG TAB (IMMEDIATE RELEASE) PO PRN (05:30)
[2019-08-18 05:51] LABS: Hematocrit (blood only) 32.8 % (42-52); Mean Corpuscular Hemoglobin 31.4 pg (25-34); Mean Corpuscular Hgb Conc 33.5 g/dL (32-36); Mean Corpuscular Volume 93.7 fL (80-100); Platelet Count 241 K/uL (130-400); RDW Coefficient of Variation 13.3 % (11.5-14.5); RDW Standard Deviation 45.5 fL (36.4-46.3); White Blood Count 7.19 K/uL (4.8-10.8)
[2019-08-18 06:35] LABS: BUN Creatinine Ratio 11.1 (10-20); Calcium 8.8 mg/dl (8.5-10.1); Creatinine Clr Calc Pharmacy 78.1 ml/min; Est GFR (African American) 85.2; Est GFR (Non-African American) 73.6; Magnesium 1.5 mg/dl (1.8-2.4); Potassium 3.5 mmol/L (3.5-5.1)
[2019-08-18] MEDS: TAMSULOSIN HCL 0.4 MG CAP PO SCH (08:52)
[2019-08-18] MEDS: BENAZEPRIL HCL 10 MG TAB PO SCH (08:52)
[2019-08-18] MEDS: FERROUS SULFATE 325 MG TAB PO SCH ×2 (08:52→17:22)
[2019-08-18] MEDS: carBAMazepine 200 MG TABLET PO SCH ×2 (08:53→21:21)
[2019-08-18] MEDS: PHENAZOPYRIDINE HCL 100 MG TAB PO PRN (08:53)
[2019-08-18] MEDS: CIPROFLOXACIN 500 MG TAB PO SCH (08:53)
[2019-08-18] MEDS: METOPROLOL SUCC 25MG EXT REL TAB PO SCH ×2 (08:53→21:21)
[2019-08-18] MEDS: INSULIN GLARGINE SOLOSTAR 100 UNITS/ML 3 ML PEN SC SCH ×2 (08:54→21:17)
[2019-08-18] MEDS ORDERED: MAGNESIUM SULFATE / D5W 1 GM/100 ML BAG IV ONE (09:15)
[2019-08-18] MEDS: MAGNESIUM OXIDE 400 MG TAB PO SCH ×2 (10:42→21:19)
--- NOTE | 2019-08-18 10:46 | XRay Report ---
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 Bipartite medial and latera l hallux sesamoids. Moderate soft tissue swelling of the imaged forefoot. No acute fracture, dislocat ion or opaque foreign body. IMPRESSION: Soft tissue swelling without acute fracture or dislocation. The above report was generated using voice recognition software. It may contain grammatical, syntax o r spelling errors. Electronically signed by: Dagoberto Barron M.D. 08/18/2019 10:45 AM
--- NOTE | 2019-08-18 11:37 | XRay Report ---
XR ankle RT 2V CLINICAL HISTORY: Right ankle pain. COMPARISON STUDY: None. FINDINGS: No fracture or dislocation within the right ankle. There is a punctate plantar heel spur. M ild soft tissue swelling. IMPRESSION: No fracture or dislocation within the right ankle. Electronically signed by: Usama Hawkins M.D. 08/18/2019 11:36 AM
--- NOTE | 2019-08-18 11:38 | Urology Progress Note ---
Date of Service August 18, 2019 Assessment & Plan (1) Hematuria: Resolved hematuria. Will coordinate passive TOV today. Replace indwelling Guerrero if no void x 8 hours. Outpatient follow up is in place. Thank you for allowing us to participate in the inpatient care of Mr. Martinez. Please contact our service if we can assist further. (2) Urinary retention: (3) BPH (benign prostatic hyperplasia): Subjective 79 YO male with gross hematuria, indwelling Guerrero. Gross hematuria appears to have resolved - urine in tubing is yellow. No bleeding or clots visualized. Patient reports overall feeling well today. No fevers/chills. No nausea/vomiting. Review of Systems Review of Systems: Per HPI. Physical Exam Physical Exam: NAD. Resp effort normal. No JVD. Abd nondistended. A&Ox3, appropriate affect. Results & Data Vital Signs (Past 12 Hours) Vital Signs Temp Pulse Pulse Resp BP Pulse Ox 08/18/19 07:37 37.0 C 92 H 16 149/74 H 95 08/18/19 07:00 83 08/18/19 04:21 36.6 C 86 20 131/83 97 08/17/19 23:59 81 PG Care Time/CCT Total # of Minutes Spent Total Time Spent with Patient: Total time spent is greater than 50% in coordination of care (as documented) at patient's floor/unit and/or counseling patient: (1) Hematuria Hematuria type: gross Qualified Code(s): R31.0 - Gross hematuria
--- NOTE | 2019-08-18 12:04 | Hospitalist Progress Note ---
Date of Service August 18, 2019 Assessment & Plan (1) Hematuria: * Patient presented with ongoing hematuria, suprapubic and left flank discomfort since lloyd placement following L TKA 07/25/19. Hemodynamically stable. Lloyd in place initially with dark bloody output, no clots presently but family reports clots prior to draining bag. Patient has been seen by Urology on 08/13, had cystoscopy - +hematuria with clots at that time, no clear bleeding source identified. * hematuria resolved * Urine microscopy - ?renal vs bladder source of bleeding, with RBC casts--> Nephrology does not think he has an acute GN * Renal US --> no hydronephrosis, nonspecific bladder wall thickening, and right kidney smaller at 9 cm * Urology consultation appreciated -- initiated oxybuytnin, pyridium which is improving his spasms -- Urology re-evaluated patient and will have a TOV today. * Continue Flomax, Finasteride * is on empiric Cipro however all cultures are negative and can likely stop this upon discharge unless Urology wants him to stay on it longer * Bladder irrigation as needed * Hgb stable * Nephrology Consult- appreciate input -- nothing to support IgA nephropathy at this point but unable to exclude, not acute GN * Requested records from Dr Gipson his primary [facility] * Morphine and Percocet PRN pain * Bowel regimen with Dulcolax, Colace, Miralax PRN (2) Abdominal pain: * no complaints of pain today * Morphine and Percocet PRN * Bowel regimen * Pyridium and Oxybutynin per urology (3) Benign prostatic hyperplasia: Continue Flomax and Finasteride (4) Seizure: * Chronic. Stable. Patient with no recent seizure activity * Continue Tegretol (5) Hypertension: * Blood pressure stable at present * Continue Toprol XL * Continue Benazepril * Continue to monitor (6) Dyslipidemia: * Chronic. Stable * Continue Lipitor (7) Diabetes: * Chronic. Well controlled on oral agents with HgbA1C 6.9% in 06/2019 * Hold Glimepiride, Januvia, Metformin and Pioglitazone inpatient * continue Lantus BID and ISS (8) PAD (peripheral artery disease): * Chronic. Stable * Continue atorvastatin 10mg * Held ASA in setting of bleed -- given post operatively for L TKA - will discuss timing of resuming dvt proph with urology (9) COPD (chronic obstructive pulmonary disease): * Stable respiratory status. No wheeze * Continue Advair (10) PUD (peptic ulcer disease): * Chronic. No active bleeding. Patient had a massive GIB in the past and told that he had a "nervous stomach" 20-25 years ago -- "received > 100 units of blood". He was placed on Librium and Dicyclomine and has continued on it ever since * Continue Ranitidine. * Continue Librium and Dicyclomine (11) DVT prophylaxis: * SCDs, oralia hose Disposition-likely home tomorrow with HH following TOV today. Supervising Physician Co-Signing Physician Notes I have seen and examined patient with ALBA Dia and agree with her assessment and plan. Subjective Mr. Martinez is feeling generally unwell today. His right foot is hurting after getting caught up in his SCDs this morning and twisting it. ROS Constitutional: no chills, aches, sweats or fever Respiratory: no sob,cough, sputum, or wheezing Cardiac: no chest pain, palpitations, edema, orthopnea or lightheadedness GI: no abdominal pain, nausea, vomiting, diarrhea or constipation : no dysuria or hesitancy Extremities: see HPI Skin: no rash All other systems reviewed and negative Physical Exam Physical Exam: General: no distress Eyes: normal inspection, PERLL Respiratory: chest non tender, clear to auscultation, normal breath sounds, no respiratory distress, no accessory muscle use Cardiac: regular rate and rhythm, no rub or gallop, no murmur, trace pitting edema lower extremities GI/: active bowel sounds, no abd pain or tenderness, soft, non distended Extremities: normal range of motion, normal strength, right foot specialist over 4th and 5th metatarsals. Neuro/Psych: alert and oriented x 3, normal mood and affect Skin: normal color, dry Results & Data Vital Signs (Past 12 Hours) Vital Signs Temp Pulse Pulse Resp BP Pulse Ox 08/18/19 07:37 37.0 C 92 H 16 149/74 H 95 08/18/19 07:00 83 08/18/19 04:21 36.6 C 86 20 131/83 97 PG Care Time/CCT Total # of Minutes Spent Total Time Spent with Patient: Total time spent is greater than 50% in coordination of care (as documented) at patient's floor/unit and/or counseling patient: (1) Benign prostatic hyperplasia Lower urinary tract symptom detail: straining on urination Lower urinary tract symptom presence: symptoms present Qualified Code(s): N40.1 - Benign prostatic hyperplasia with lower urinary tract symptoms; R39.16 - Straining to void (2) Hematuria Hematuria type: gross Qualified Code(s): R31.0 - Gross hematuria (3) Diabetes Diabetes mellitus complication status: without complication Diabetes mellitus penitentiary insulin use: without intermediate accountant use Diabetes mellitus type: type 2 Qualified Code(s): E11.9 - Type 2 diabetes mellitus without complications (4) COPD (chronic obstructive pulmonary disease) COPD type: unspecified COPD Qualified Code(s): J44.9 - Chronic obstructive pulmonary disease, unspecified (5) Abdominal pain Abdominal location: lower abdomen, unspecified Qualified Code(s): R10.30 - Lower abdominal pain, unspecified (6) Hypertension Hypertension type: essential hypertension Qualified Code(s): I10 - Essential (primary) hypertension
[2019-08-18] MEDS: ASPIRIN 81 MG ECTAB PO SCH (21:17)
[2019-08-18] MEDS: ATORVASTATIN 10 MG TAB PO SCH (21:18)
[2019-08-18] MEDS: FINASTERIDE 5 MG TAB PO SCH (21:20)
[2019-08-19] MEDS: TAMSULOSIN HCL 0.4 MG CAP PO SCH (08:35)
[2019-08-19] MEDS: BENAZEPRIL HCL 10 MG TAB PO SCH (08:35)
[2019-08-19] MEDS: FERROUS SULFATE 325 MG TAB PO SCH ×2 (08:35→17:16)
[2019-08-19] MEDS: MAGNESIUM OXIDE 400 MG TAB PO SCH ×2 (08:36→20:53)
[2019-08-19] MEDS: ASPIRIN 81 MG ECTAB PO SCH ×2 (08:36→20:52)
[2019-08-19] MEDS: METOPROLOL SUCC 25MG EXT REL TAB PO SCH ×2 (08:36→20:55)
[2019-08-19] MEDS: carBAMazepine 200 MG TABLET PO SCH ×2 (08:36→20:55)
[2019-08-19] MEDS: FLUTICASONE/SALMETEROL 250/50 (ADVAIR) 14 PUFF/1 INHALER INH PRN (08:36)
[2019-08-19] MEDS: INSULIN GLARGINE SOLOSTAR 100 UNITS/ML 3 ML PEN SC SCH ×2 (08:37→20:52)
[2019-08-19] MEDS: INSULIN ASPART 100 UNITS/ML 3 ML PEN SC SCH ×4 (08:38→20:56)
[2019-08-19] MEDS: OXYCODONE HCL IR 5 MG TAB (IMMEDIATE RELEASE) PO PRN ×2 (08:58→16:24)
[2019-08-19 09:29] LABS: BUN Creatinine Ratio 8.3 (10-20); Calcium 8.8 mg/dl (8.5-10.1); Creatinine Clr Calc Pharmacy 76.6 ml/min; Est GFR (African American) 84.2; Est GFR (Non-African American) 72.6; Magnesium 1.8 mg/dl (1.8-2.4); Potassium 3.9 mmol/L (3.5-5.1)
--- NOTE | 2019-08-19 17:28 | Hospitalist Progress Note ---
Date of Service August 19, 2019 Assessment & Plan (1) Hematuria: * Patient presented with ongoing hematuria, suprapubic and left flank discomfort since lloyd placement following L TKA 07/25/19. Hemodynamically stable. Lloyd in place initially with dark bloody output, no clots presently but family reports clots prior to draining bag. Patient has been seen by Urology on 08/13, had cystoscopy - +hematuria with clots at that time, no clear bleeding source identified. * hematuria resolved * Urine microscopy - ?renal vs bladder source of bleeding, with RBC casts--> Nephrology does not think he has an acute GN * Renal US --> no hydronephrosis, nonspecific bladder wall thickening, and right kidney smaller at 9 cm * Urology consultation appreciated -- initiated oxybuytnin, pyridium which is improving his spasms -- successful TOV * Continue Flomax, Finasteride * cultures neg - cipro dc'd * Nephrology Consult- appreciate input -- nothing to support IgA nephropathy at this point but unable to exclude, not acute GN (2) Abdominal pain: * no complaints of pain today * Morphine and Percocet PRN * Bowel regimen * Pyridium and Oxybutynin per urology (3) Benign prostatic hyperplasia: Continue Flomax and Finasteride (4) Seizure: * Chronic. Stable. Patient with no recent seizure activity * Continue Tegretol (5) Hypertension: * Blood pressure stable at present * Continue Toprol XL * Continue Benazepril (6) Dyslipidemia: * Continue Lipitor (7) Diabetes: * Well controlled on oral agents with HgbA1C 6.9% in 06/2019 * Hold Glimepiride, Januvia, Metformin and Pioglitazone inpatient * continue Lantus BID and ISS (8) PAD (peripheral artery disease): * Continue atorvastatin 10mg * Held ASA in setting of bleed -- given post operatively for L TKA - resumed after discussing with urology (9) COPD (chronic obstructive pulmonary disease): * Stable respiratory status. No wheeze * Continue Advair (10) PUD (peptic ulcer disease): * Chronic. No active bleeding. Patient had a massive GIB in the past and told that he had a "nervous stomach" 20-25 years ago -- "received > 100 units of blood". He was placed on Librium and Dicyclomine and has continued on it ever since * Continue Ranitidine. * Continue Librium and Dicyclomine (11) DVT prophylaxis: * SCDs, oralia wang Disposition- will return to rehab at [place] for therapy Supervising Physician Co-Signing Physician Notes I examined and seen patient with ALBA Khoury and agree with assessment and plan. Subjective Feeling tired, right foot still operator whiskey. ROS Constitutional: no chills, aches, sweats or fever Respiratory: no sob,cough, sputum, or wheezing Cardiac: no chest pain, palpitations, edema, orthopnea or lightheadedness GI: no abdominal pain, nausea, vomiting, diarrhea or constipation : no dysuria or hesitancy Extremities: see HPI, no weakness Skin: no rash All other systems reviewed and negative Physical Exam Physical Exam: General: no distress Eyes: normal inspection, PERLL Respiratory: chest non tender, clear to auscultation, normal breath sounds, no respiratory distress, no accessory muscle use Cardiac: regular rate and rhythm, no rub or gallop, no murmur, no edema, no jvd GI/: active bowel sounds, no abd pain or tenderness, soft, non distended Extremities: normal range of motion, normal strength, non tender Neuro/Psych: alert and oriented x 3, normal mood and affect Skin: normal color, dry, incision well approximated, steri strips in place Results & Data Vital Signs (Past 12 Hours) Vital Signs Temp Pulse Pulse Resp BP BP Pulse Ox 08/19/19 16:33 36.8 C 69 20 121/76 92 08/19/19 16:11 93 H 08/19/19 11:46 36.9 C 84 152/86 H 96 08/19/19 07:55 36.7 C 87 32 H 138/85 92 08/19/19 07:00 83 PG Care Time/CCT Total # of Minutes Spent Total Time Spent with Patient: Total time spent is greater than 50% in coordination of care (as documented) at patient's floor/unit and/or counseling patient: (1) Benign prostatic hyperplasia Lower urinary tract symptom detail: straining on urination Lower urinary tract symptom presence: symptoms present Qualified Code(s): N40.1 - Benign prostatic hyperplasia with lower urinary tract symptoms; R39.16 - Straining to void (2) Hematuria Hematuria type: gross Qualified Code(s): R31.0 - Gross hematuria (3) Diabetes Diabetes mellitus complication status: without complication Diabetes mellitus director long term care insulin use: without director long term care use Diabetes mellitus type: type 2 Qualified Code(s): E11.9 - Type 2 diabetes mellitus without complications (4) COPD (chronic obstructive pulmonary disease) COPD type: unspecified COPD Qualified Code(s): J44.9 - Chronic obstructive pulmonary disease, unspecified (5) Abdominal pain Abdominal location: lower abdomen, unspecified Qualified Code(s): R10.30 - Lower abdominal pain, unspecified (6) Hypertension Hypertension type: essential hypertension Qualified Code(s): I10 - Essential (primary) hypertension
[2019-08-19] MEDS: ATORVASTATIN 10 MG TAB PO SCH (20:54)
[2019-08-19] MEDS: FINASTERIDE 5 MG TAB PO SCH (20:55)
[2019-08-20] MEDS: ASPIRIN 81 MG ECTAB PO SCH (08:19)
[2019-08-20] MEDS: FERROUS SULFATE 325 MG TAB PO SCH ×2 (08:19→17:28)
[2019-08-20] MEDS: carBAMazepine 200 MG TABLET PO SCH ×2 (08:19→20:53)
[2019-08-20] MEDS: METOPROLOL SUCC 25MG EXT REL TAB PO SCH ×2 (08:19→20:53)
[2019-08-20] MEDS: BENAZEPRIL HCL 10 MG TAB PO SCH (08:19)
[2019-08-20] MEDS: INSULIN GLARGINE SOLOSTAR 100 UNITS/ML 3 ML PEN SC SCH ×2 (08:19→20:50)
[2019-08-20] MEDS: MAGNESIUM OXIDE 400 MG TAB PO SCH ×2 (08:19→20:52)
[2019-08-20] MEDS: TAMSULOSIN HCL 0.4 MG CAP PO SCH (08:19)
[2019-08-20] MEDS: INSULIN ASPART 100 UNITS/ML 3 ML PEN SC SCH ×4 (08:22→20:49)
[2019-08-20] MEDS: OXYCODONE HCL IR 5 MG TAB (IMMEDIATE RELEASE) PO PRN (08:29)
--- NOTE | 2019-08-20 13:55 | Consultation Report ---
DATE OF CONSULTATION: 08/20/2019 ORTHOPEDIC CONSULTATION CHIEF COMPLAINT: Right leg pain after knee replacement surgery. HISTORY OF PRESENT ILLNESS: A 79-year-old gentleman well known to me from previous right knee replacement done just about 3-1/2 weeks ago. He went to a rehab facility and has really struggled since then. He has had some dehydration and some urinary issues with some hematuria. He has been admitted to the hospital and things seemed to be improving from that standpoint. His Guerrero has been removed. The hematuria is improved and he is voiding on his own. He continues to have some right knee pain. He is only 3-1/2 weeks out from surgery. He also complains of some ankle and mostly heel pain. No fevers. No other real complaints. OBJECTIVE: VITAL SIGNS: Temperature 36.7. Vital signs stable. GENERAL: Shows a pleasant, elderly male. He is sitting up in bed, looks pretty comfortable. EXTREMITIES: Examination of the right leg reveals the leg to be well aligned. He has got a moderate-sized knee effusion. Incision has healed nicely. He can do a good straight leg raise. Range of motion is 0 to about 90 degrees with some pain. He can dorsiflex and plantarflex his foot appropriately. He is neurologically intact. X-RAYS: I did review the x-ray of his ankle and his foot. There showed some age-related changes. No acute problems. ASSESSMENT: A 79-year-old gentleman 3-1/2 weeks out from right knee replacement, complicated by some urological issues, which seemed to be resolved. He is having some knee pain, which is not unexpected. I think a lot of his heel pain is just related to some muscle tightness and maybe some plantar fasciitis. PLAN: We talked about treatment. At this point, it is really important for him to do therapy. I emphasized the importance of this as this is the critical time to rehab his knee. I do not see anything else on exam to be concerned about from his knee standpoint. With his foot and ankle, I would recommend gastroc stretching. I reassured him he can walk and put weight on his leg and it is not going to hurt anything. I should be seeing him in about 2 weeks for his 6-week visit. Any orthopedic questions can be directed to me at [phone]. As far as DVT prophylaxis, I am okay with just TEDs and SCDs at this time.
--- NOTE | 2019-08-20 14:48 | Hospitalist Progress Note ---
Date of Service August 20, 2019 Assessment & Plan (1) Hematuria: * Patient presented with ongoing hematuria, suprapubic and left flank discomfort since lloyd placement following L TKA 07/25/19. Hemodynamically stable. Lloyd in place initially with dark bloody output, no clots presently but family reports clots prior to draining bag. Patient has been seen by Urology on 08/13, had cystoscopy - +hematuria with clots at that time, no clear bleeding source identified. * hematuria resolved * Urine microscopy - ?renal vs bladder source of bleeding, with RBC casts--> Nephrology does not think he has an acute GN * Renal US --> no hydronephrosis, nonspecific bladder wall thickening, and right kidney smaller at 9 cm * Urology consultation appreciated -- initiated oxybuytnin, pyridium which is improving his spasms -- successful TOV * Continue Flomax, Finasteride * cultures neg - cipro dc'd * Nephrology Consult- appreciate input -- nothing to support IgA nephropathy at this point but unable to exclude, not acute GN * will recheck prp am (2) Abdominal pain: * Morphine and Percocet PRN * Bowel regimen * Pyridium and Oxybutynin per urology (3) Benign prostatic hyperplasia: Continue Flomax and Finasteride (4) Seizure: * Chronic. Stable. Patient with no recent seizure activity * Continue Tegretol (5) Hypertension: * Blood pressure stable at present * Continue Toprol XL * Continue Benazepril (6) Dyslipidemia: * Continue Lipitor (7) Diabetes: * Well controlled on oral agents with HgbA1C 6.9% in 06/2019 * Hold Glimepiride, Januvia, Metformin and Pioglitazone inpatient * continue Lantus BID and ISS (8) PAD (peripheral artery disease): * Continue atorvastatin 10mg and ASA 81 mg daily (9) COPD (chronic obstructive pulmonary disease): * Stable respiratory status. No wheeze * Continue Advair (10) PUD (peptic ulcer disease): * Chronic. No active bleeding. Patient had a massive GIB in the past and told that he had a "nervous stomach" 20-25 years ago -- "received > 100 units of blood". He was placed on Librium and Dicyclomine and has continued on it ever since * Continue Ranitidine. * Continue Librium and Dicyclomine (11) S/P total knee arthroplasty: right knee on 07/[address] Luis Smith consulted to follow up. He emphasized importance of therapy with patient. Recommends gastroc stretching for foot and ankle pain. Dr. Smith will need to see him in about 2 weeks for his 6-week visit. Okay with just TEDs and SCDs for DVT proph. (12) DVT prophylaxis: * SCDruth, oralia hose Disposition- will return to rehab at [place] for therapy when insurance auth is through Supervising Physician Co-Signing Physician Notes I examined and seen patient with ALBA Khoury and agree with assessment and plan. Subjective Mr. Martinez continues to have right foot tenderness and pain but otherwise has no complaints. ROS Constitutional: no chills, aches, sweats or fever Respiratory: no sob,cough, sputum, or wheezing Cardiac: no chest pain, palpitations, edema, orthopnea or lightheadedness GI: no abdominal pain, nausea, vomiting, diarrhea or constipation : no dysuria or hesitancy Extremities: see HPI, no weakness Skin: no rash All other systems reviewed and negative Physical Exam Physical Exam: General: no distress Eyes: normal inspection, PERLL Respiratory: chest non tender, clear to auscultation, normal breath sounds, no respiratory distress, no accessory muscle use Cardiac: regular rate and rhythm, no rub or gallop, no murmur, no edema, no jvd GI/: active bowel sounds, no abd pain or tenderness, soft, non distended Extremities: normal range of motion, normal strength, right foot tenderness Neuro/Psych: alert and oriented x 3, normal mood and affect Skin: normal color, dry Results & Data Vital Signs (Past 12 Hours) Vital Signs Temp Pulse Pulse Resp BP BP Pulse Ox 08/20/19 11:36 36.7 C 83 16 116/71 96 08/20/19 08:54 36.9 C 71 18 150/90 H 95 08/20/19 07:27 83 PG Care Time/CCT Total # of Minutes Spent Total Time Spent with Patient: Total time spent is greater than 50% in coordination of care (as documented) at patient's floor/unit and/or counseling patient: (1) Benign prostatic hyperplasia Lower urinary tract symptom detail: straining on urination Lower urinary tract symptom presence: symptoms present Qualified Code(s): N40.1 - Benign prostatic hyperplasia with lower urinary tract symptoms; R39.16 - Straining to void (2) Hematuria Hematuria type: gross Qualified Code(s): R31.0 - Gross hematuria (3) Diabetes Diabetes mellitus complication status: without complication Diabetes mellitus intermission coordinator insulin use: without shelter use Diabetes mellitus type: type 2 Qualified Code(s): E11.9 - Type 2 diabetes mellitus without complications (4) COPD (chronic obstructive pulmonary disease) COPD type: unspecified COPD Qualified Code(s): J44.9 - Chronic obstructive pulmonary disease, unspecified (5) Abdominal pain Abdominal location: lower abdomen, unspecified Qualified Code(s): R10.30 - Lower abdominal pain, unspecified (6) Hypertension Hypertension type: essential hypertension Qualified Code(s): I10 - Essential (primary) hypertension
[2019-08-20] MEDS: ATORVASTATIN 10 MG TAB PO SCH (20:52)
[2019-08-20] MEDS: FINASTERIDE 5 MG TAB PO SCH (20:53)
[2019-08-21] MEDS: OXYCODONE HCL IR 5 MG TAB (IMMEDIATE RELEASE) PO PRN ×2 (00:48→07:49)
[2019-08-21 05:42] LABS: Basophils # (auto) 0.04 K/uL (0-0.2); Basophils % (auto) 0.6 %; Eosinophils # (auto) 0.17 K/uL (0-0.5); Eosinophils % (auto) 2.7 %; Hematocrit (blood only) 31.9 % (42-52); Hemoglobin 10.6 g/dL (14.0-18.0); Immature Granulocytes # (auto) 0.01 K/uL (0.00-0.02); Immature Granulocytes % (auto) 0.2 %; Lymphocytes # (auto) 1.82 K/uL (1.2-3.4); Lymphocytes % (auto) 28.9 %; Mean Corpuscular Hemoglobin 31.5 pg (25-34); Mean Corpuscular Hgb Conc 33.2 g/dL (32-36); Mean Corpuscular Volume 94.9 fL (80-100); Mean Platelet Volume 10.1 fL (7.4-10.4); Monocytes # (auto) 0.96 K/uL (0.11-0.59); Monocytes % (auto) 15.3 %; Neutrophils # (auto) 3.29 K/uL (1.4-6.5); Neutrophils % (auto) 52.3 %; Platelet Count 239 K/uL (130-400); RDW Coefficient of Variation 13.5 % (11.5-14.5); RDW Standard Deviation 46.8 fL (36.4-46.3); Red Blood Count 3.36 M/uL (4.7-6.1); White Blood Count 6.29 K/uL (4.8-10.8)
[2019-08-21 06:16] LABS: BUN Creatinine Ratio 12.3 (10-20); Calcium 8.8 mg/dl (8.5-10.1); Creatinine Clr Calc Pharmacy 74.5 ml/min; Est GFR (African American) 81.2; Est GFR (Non-African American) 70.1; Potassium 4.1 mmol/L (3.5-5.1)
[2019-08-21] MEDS: BENAZEPRIL HCL 10 MG TAB PO SCH (07:43)
[2019-08-21] MEDS: TAMSULOSIN HCL 0.4 MG CAP PO SCH (07:43)
[2019-08-21] MEDS: METOPROLOL SUCC 25MG EXT REL TAB PO SCH (07:44)
[2019-08-21] MEDS: carBAMazepine 200 MG TABLET PO SCH (07:44)
[2019-08-21] MEDS: MAGNESIUM OXIDE 400 MG TAB PO SCH (07:44)
[2019-08-21] MEDS: INSULIN GLARGINE SOLOSTAR 100 UNITS/ML 3 ML PEN SC SCH (07:50)
[2019-08-21] MEDS: INSULIN ASPART 100 UNITS/ML 3 ML PEN SC SCH ×2 (08:28→12:38)
[2019-08-21] MEDS ORDERED: ASPIRIN 81 MG ECTAB PO SCH (09:00)
[2019-08-21] MEDS: FERROUS SULFATE 325 MG TAB PO SCH (09:46)
--- NOTE | 2019-08-21 11:24 | Discharge Summary ---
Date of Service August 21, 2019 Admission HPI Per Admitting Provider 79yo C male with hematuria. Patient had a knee replacement performed on 07/25/[address] Smith which went well. He had some urinary retention requiring several straight catheterizations. He was discharged to rehab at [facility] in stable condition on 07/29/19. He reports dark hematuria with clots since then as well as severe dysuria, frequency/urgency and suprapubic discomfort. Reports large amount of clot passing as well. He was seen in the ER at [facility] in [place], [place] on 08/06/19 with complaint of hematuria and increased urinary frequency. UA was positive for blood and WBCs. His bladder scan was performed which revealed 50mL only, no retention. Patient was given a prescription for Cipro 500mg po BID x 10 days for possible CAUTI. He was seen in [facility] ER on 08/11/19 with complaint of hematuria, dysuria and flank pain. He had a CT of the abdomen which revealed chronic bladder outlet obstruction secondary to prostamegaly. Punctate nonobstructing right renal calculus with no hydronephrosis. He was started on Flomax and Finasteride at that time. His Ciproflaxacin was discontinued and he was started on Augmentin. He was seen by Urology on 08/13/19 with the same complaints of hematuria and dysuria. He had a cystoscopy performed by Dr. Tim which revealed moderate inflammation of the bladder wall, large amount of old clot present. No tumor noted. Patient had a Lloyd catheter placed and was given Ciprofloxacin x 2 doses. Plan to maintain Lloyd in place x 1 week and have a repeat cystoscopy in 3 months. Patient was instructed to continue finasteride and tamsulosin. He presents today with continued hematuria with clot passage as well as severe suprapubic discomfort. ER: NSS Principal Diagnosis Hematuria Discharge Exam Constitutional WD/WN, vitals as above Respiratory normal respiratory effort, lungs clear to auscultation Cardiovascular RRR, no murmur, no edema Gastrointestinal (Abdomen) Inspection/Auscultation: abdomen normal to inspection and normal bowel sounds; abdomen not distended Percussion/Palpation: abdomen soft; abdomen nontender Musculoskeletal no cyanosis or clubbing, extremities motor strength 5/5 Skin no rashes, warm and dry Neurologic moves all extremities and awake Psychiatric A+Ox3, euthymic affect Discharge Data Allergies Allergy/AdvReac Type Severity Reaction Status Date / Time No Known Allergies Allergy Verified 08/15/19 23:01 Consultations 08/16/19 00:46 ED Decision to Admit Stat 08/16/19 02:55 Consult Urology Routine 08/16/19 16:54 Consult Nephrology Routine 08/16/19 18:58 Consult Health Information Management Routine 08/19/19 08:02 Consult Case Management - Discharge Planning Routine 08/19/19 17:42 Consult Orthopedic Surgery Routine Ordered Studies 08/16/19 02:55 US renal/blad retro comp Routine Hospital Course (1) Hematuria: * Patient presented with ongoing hematuria, suprapubic and left flank discomfort since lloyd placement following L TKA 07/25/19. Hemodynamically stable. Lloyd in place initially with dark bloody output, no clots presently but family reports clots prior to draining bag. Patient has been seen by Urology on 08/13, had cystoscopy - +hematuria with clots at that time, no clear bleeding source identified. * hematuria resolved * Urine microscopy - ?renal vs bladder source of bleeding, with RBC casts--> Nephrology does not think he has an acute GN * Renal US --> no hydronephrosis, nonspecific bladder wall thickening, and right kidney smaller at 9 cm * Urology consultation appreciated -- initiated oxybuytnin, pyridium which is improving his spasms -- successful TOV - has not taken these medications over the last couple of days * Continue Flomax, Finasteride * cultures neg - cipro dc'd * Nephrology Consult- appreciate input -- nothing to support IgA nephropathy at this point but unable to exclude, not acute GN, no further workup, recommends close fu with home helpdesk technician (2) Abdominal pain: * Morphine and Percocet PRN * Bowel regimen * Pyridium and Oxybutynin per urology - has not needed any doses over the last few days * resolved (3) Benign prostatic hyperplasia: Continue Flomax and Finasteride (4) Seizure: * Chronic. Stable. Patient with no recent seizure activity * Continue Tegretol (5) Hypertension: * Blood pressure stable at present * Continue Toprol XL * Continue Benazepril (6) Dyslipidemia: * Continue Lipitor (7) Diabetes: * Well controlled on oral agents with HgbA1C 6.9% in 06/2019 * Resume Glimepiride, Januvia, Metformin and Pioglitazone on discharge (8) PAD (peripheral artery disease): * Continue atorvastatin 10mg and ASA 81 mg daily (9) COPD (chronic obstructive pulmonary disease): * Stable respiratory status. No wheeze * Continue Advair (10) PUD (peptic ulcer disease): * Chronic. No active bleeding. Patient had a massive GIB in the past and told that he had a "nervous stomach" 20-25 years ago -- "received > 100 units of blood". He was placed on Librium and Dicyclomine and has continued on it ever since * Continue Ranitidine. * Continue Librium and Dicyclomine (11) S/P total knee arthroplasty: right knee on 07/[address] Luis Smith consulted to follow up. He emphasized importance of therapy with patient. Recommends gastroc stretching for foot and ankle pain. Dr. Smith will need to see him in about 2 weeks for his 6-week visit. Okay with just TEDs and SCDs for DVT proph. (12) DVT prophylaxis: * janette Dorman Disposition- will return to rehab at [place] Total Time Total Time Spent Total Time Spent (In Minutes): greater than 30 minutes Discharge Plan Discharge Items Patient Disposition: Transfer Halfway Fac Reason For Visit: HEMATURIA Discharge Diagnosis: Hematuria Activity: Resume your previous activity Non-emergency contact: Primary Care Provider Call non-emergency contact if: you have any medication questions, your symptoms worsen and you have a fever Follow-up/Referrals: Soto Tim MD [Physician] - 08/19/19 1:00 pm (Please, follow up at [facility] Urology Office on SundayAugust 19 at 1:00 pm. *The office is located at [address] in [place]. If you have any questions, call the office at [phone].) Valerie Benavidez D.O. [Primary Care Provider] - 08/20/19 11:30 am (Please, follow up with Dr. Benavidez on SundayAugust 20 at 11:30 am. *If you need to change this appointment, call her office at [phone].) Diet: Carb Consistent or DM2 Addtl Attending Provider Instructions: Hematuria: You presented with ongoing hematuria, suprapubic and left flank discomfort since lloyd placement following a left total knee arthroplasty 07/25/19. You were seen by Urology on 08/13 and had a cystoscopy which showed hematuria (blood in your urine) with clots at that time, no clear bleeding source was identified. Hematuria has now resolved and you are no longer seeing blood in your urine. Urine culture was negative and no further antibiotics are necessary * Continue Flomax, Finasteride * Nephrology evaluated you and did not feel further workup was necessary however you should have close follow up with your home helpdesk technician * Please follow up with urology next week History of seizures * continue Tegretol Hypertension * Blood pressure stable at present * Continue Toprol XL * Continue Benazepril Dyslipidemia: * Continue Lipitor Diabetes: Well controlled on oral agents with HgbA1C 6.9% in 06/2019 * Resume Glimepiride, Januvia, Metformin and Pioglitazone PAD (peripheral artery disease): * Continue atorvastatin 10mg and ASA 81 mg daily COPD (chronic obstructive pulmonary disease): * Continue Advair PUD (peptic ulcer disease): History of GIB in the past 20-25 years ago and was placed on Librium and Dicyclomine which has continued since * Continue Ranitidine, Librium and Dicyclomine S/P total knee arthroplasty: right total knee arthroplasty on 07/[address] Smith consulted with you on 08/20. He recommends gastroc stretching for foot and ankle pain. * follow up with Dr. Smith in about 2 weeks for his 6-week visit. * JANETTE wang for DVT prophylaxis, can discontinue aspirin twice per day Pending Studies at Discharge: No Stand-Alone Forms: My [facility] Skilled Items Patient informed of condition?: Yes DNR: No Discharge Level of Care: Acute rehab Communicable Disease: No Discharge Prognosis: Stable Lines: None Urinary Catheter: No Medications and DC Order Prescriptions: New magnesium oxide 400 mg (241.3 mg magnesium) Tablet 400 mg PO BID Qty: 30 RF: 0 Continued acetaminophen-codeine 300-30 mg Tablet 1 tab PO Q6H PRN (Reason: Pain) RF: 0 carbamazepine [Tegretol] 200 mg Tablet 200 mg PO BID RF: 0 ranitidine HCl 150 mg Tablet 150 mg PO BID RF: 0 dicyclomine 10 mg Capsule 10 mg PO BID PRN (Reason: abdominal cramping) RF: 0 atorvastatin [Lipitor] 10 mg Tablet 10 mg PO HS RF: 0 Januvia 100 mg Tablet 100 mg PO QPM RF: 0 benazepril [Lotensin] 10 mg Tablet 10 mg PO QAM RF: 0 pioglitazone [Actos] 15 mg Tablet 15 mg PO QAM RF: 0 fluticasone propion-salmeterol [Advair Diskus] 250-50 mcg/dose Blister With Device 1 inh INHALATION Q12H PRN (Reason: sob) RF: 0 metoprolol succinate [Toprol XL] 50 mg Tablet Extended Release 24 Hr 25 mg PO BID RF: 0 glimepiride 4 mg Tablet 4 mg PO QAM RF: 0 omega [id number] oil [Fish Oil] 1,000 mg (120 mg-180 mg) Capsule 1 cap PO QAM RF: 0 ferrous sulfate 325 mg (65 mg iron) Tablet 325 mg PO BID RF: 0 metformin 1,000 mg Tablet 1,000 mg PO BID RF: 0 multivitamin with minerals [Multiple Vitamin-Minerals] Tablet 1 tab PO QAM RF: 0 oxycodone 5 mg Tablet 5 mg PO Q4 PRN (Reason: Pain) RF: 0 tamsulosin [Flomax] 0.4 mg capsule 0.4 mg PO DAILY Qty: 20 RF: 0 acetaminophen 325 mg Tablet 325 mg PO Q6H PRN (Reason: Pain) RF: 0 chlordiazepoxide HCl 10 mg Capsule 10 mg PO BID RF: 0 bisacodyl [Dulcolax (bisacodyl)] 10 mg Suppository 10 mg FL DAILY PRN (Reason: Constipation) RF: 0 finasteride 5 mg tablet 5 mg PO HS RF: 0 acetaminophen [Tylenol] 325 mg Tablet 650 mg PO Q4H PRN (Reason: temp) RF: 0 Changed aspirin [Ecotrin Low Strength] 81 mg Tablet,Delayed Release (Dr/Ec) 81 mg PO DAILY 45 Days Qty: 90 RF: 0 Discontinued amoxicillin-pot clavulanate [Augmentin] 875-125 mg Tablet 1 tab PO BID RF: 0 Discharge Orders: Discharge Order (Routine); Ordered 08/21/19 Ordered By: Gay Dia Admission Data Admit Date/Time: 08/16/19 02:19 Attending Provider: Imelda Schmidt Admit Provider: Etelvina Smith Primary Care Provider: Valerie Benavidez Other Providers: Etelvina Smith ; Soto Tim I. ; Isma Pedroza ; Richy Smith Other Interventions: Discharge Summary Assessment (RN) Last Done: 08/21/19 12:18 DC Date/Time DO NOT enter until pt leaves facility: 08/21/19 17:26 Supervising Physician Co-Signing Physician Notes I examined and seen patient with ALBA Khoury and agree with discharge summary.
== END 2019-08-21 17:26 | DRG 696 ==
LOC: ED 22:38 → SUATTDRO 08-16 02:19 → 2N 08-16 02:19